=== PATIENT | female | born 1990 | race Hispanic/Latino ===

== ENCOUNTER 2017-03-15 20:39 | Observation (INO) | payer OTHER ==
[2017-03-15] MEDS ORDERED: Sodium Chloride 0.9% 1,000 ML IV STA (20:52)
--- NOTE | 2017-03-15 21:11 | ED PDOC ---
Arrival/HPI - General Time Seen by Provider: 03/15/17 20:51 - History of Present Illness Narrative History of Present Illness (Text): 03/15/17 20:35 Marly Montoya is a 26 year old female, whose past medical history includes thyroid cancer in remission, asthma, anxiety, and renal stones, presents to the emergency department complaining of lower back pain for the past 2 hours prior to arrival. Patient reports the pain began after she went to the bathroom and urinated and notes that recently she has been having more frequency to urinate to the point that she does not make it to the bathroom. Patient also states that the symptoms are similar to past medical history of kidney stones. Patient denies fall, trauma, chest pain, shortness of breath, headache, fever, chills, cough, nausea, vomiting, diarrhea, or other complaints. PMD: Dr. Aguilar Time/Duration: 1-3 hours Symptom Onset: Sudden Symptom Course: Unchanged Modifying Factors (Text): pain is worse with sitting or laying. Context: Home Associated Symptoms (Text): frequency in urination Past Medical History - Provider Review Nursing Documentation Reviewed: Yes - Cardiac Hx Hypertension: Yes - Pulmonary Hx Asthma: Yes - Renal Other/Comment: Pylonephritis - Endocrine/Metabolic Other/Comment: Papillary thyroid CA - Psychiatric Hx Substance Use: No - Surgical History Hx Thyroidectomy: Yes (04/07/2013) Family/Social History - Physician Review Nursing Documentation Reviewed: Yes Family/Social History: Unknown Family HX Smoking Status: Never Smoked Hx Alcohol Use: Yes Hx Substance Use: No Allergies/Home Meds Allergies/Adverse Reactions: Allergies amoxicillin Allergy (Verified 06/24/16 02:19) ANAPHYLAXIS spider venom Allergy (Verified 06/24/16 02:19) ANAPHYLAXIS BEE STING Allergy (Uncoded 06/24/16 02:19) ANAPHYLAXIS Home Medications: Home Meds Medication Instructions Recorded Confirmed Levothyroxine Sodium [Synthroid] 300 mcg PO DAILY 03/15/17 03/15/17 Review of Systems - Physician Review All systems were reviewed & negative as marked: Yes - Review of Systems Constitutional: absent: Fevers Respiratory: absent: SOB Cardiovascular: absent: Chest Pain Gastrointestinal: absent: Abdominal Pain, Diarrhea, Nausea, Vomiting Genitourinary Female: Frequency Musculoskeletal: Back Pain (lower back pain) Neurological: absent: Headache Physical Exam Vital Signs Temp Pulse Resp BP Pulse Ox 03/15/17 21:29 98.7 F 80 20 126/73 99 Appearance: Positive for: Well-Appearing, Non-Toxic, Comfortable Pain Distress: None Mental Status: Positive for: Alert and Oriented X 3 - Systems Exam Head: Present: Atraumatic, Normocephalic Pupils: Present: PERRL Extroacular Muscles: Present: EOMI Conjunctiva: Present: Normal Mouth: Present: Moist Mucous Membranes Neck: Present: Normal Range of Motion Respiratory/Chest: Present: Clear to Auscultation, Good Air Exchange. No: Respiratory Distress, Accessory Muscle Use Cardiovascular: Present: Regular Rate and Rhythm, Normal S1, S2. No: Murmurs Abdomen: Present: Normal Bowel Sounds. No: Tenderness, Distention, Peritoneal Signs Back: Present: CVA Tenderness (left) Upper Extremity: Present: Normal Inspection. No: Cyanosis, Edema Lower Extremity: Present: Normal Inspection. No: Edema Neurological: Present: GCS=15, CN II-XII Intact, Speech Normal Skin: Present: Warm, Dry, Normal Color. No: Rashes Psychiatric: Present: Alert, Oriented x 3, Normal Insight, Normal Concentration Medical Decision Making ED Course and Treatment: 03/15/17 Impression: 26 year old with low back pain and frequency. Differential Diagnosis included but are not limited to: renal stones vs. musculoskeletal Plan: -- CT abdomen and pelvis without contrast -- Labs -- Urinalysis -- Sodium Chloride, Toradol, Tylenol, and Zofran -- Reassess and disposition Progress Notes: 03/15/17 23:04 UTI treated with macrobid. Patient continues to have pain so will treat Lidocaine IV. Discussed case with Dr. Chavis who recommends admitting the patient for observation and he will see her in the morning. discussed case with Dr. Cueto who will place on the hospitalist service. Dr. Aguilar is patient's PMD and he admits to the hospistalist. - Lab Interpretations Lab Results: 03/15/17 21:00 03/15/17 21:00 Lab Results 03/15/17 21:10: Urine Color Yellow, Urine Appearance Sl cloudy, Urine pH 6.5, Ur Specific [place] >= 1.030, Urine Protein 100 H, Urine Glucose (UA) Negative, Urine Ketones Negative, Urine Blood Small H, Urine Nitrate Positive H, Urine Bilirubin Negative, Urine Urobilinogen 1.0 H, Ur Leukocyte Esterase Negative, Urine RBC 5 - 10, Urine WBC 10 - 15, Ur Epithelial Cells 4 - 5, Urine Bacteria Many 03/15/17 21:00: Sodium 142, Potassium 4.1, Chloride 105, Carbon Dioxide 27, Anion Gap 14, BUN 10, Creatinine 0.8, Est GFR ( Amer) > 60, Est GFR (Non- Af Amer) > 60, Random Glucose 92, Calcium 9.3, Total Bilirubin 0.7, AST 35, ALT 22, Alkaline Phosphatase 64, Total Protein 8.4 H, Albumin 4.8, Globulin 3.5, Albumin/Globulin Ratio 1.4 03/15/17 21:00: WBC 10.9, RBC 4.82, Hgb 12.3, Hct 37.8, MCV 78.4 L, MCH 25.5, MCHC 32.5, RDW 20.6 H, Plt Count 216, MPV 11.8 H, Gran % 60.6, Lymph % (Auto) 28.0, [place] % (Auto) 7.5 H, Eos % (Auto) 3.1, Baso % (Auto) 0.8, Gran # 6.57 H, Lymph # 3.0, [place] # 0.8 H, Eos # 0.3, Baso # 0.09, Neutrophils % (Manual) 48 L, Lymphocytes % (Manual) 46 H, Monocytes % (Manual) 5, Eosinophils % (Manual) 1, Platelet Evaluation Normal, Hypochromasia Slight, Anisocytosis (manual) Slight, Microcytosis (manual) Slight, Ovalocytes Slight I have reviewed the lab results: Yes Interpretation: Abnormal lab values (UTI noted) - RAD Interpretation Radiology Orders: 03/15/17 20:53 ABD & PELVIS W/O PO OR IV CONT [CT] Stat Catering Coordinator: Radiologist - Medication Orders Current Medication Orders: Discontinued Medications Acetaminophen (Tylenol 325mg Tab) 975 mg PO STAT STA Stop: 03/15/17 20:53 Last Admin: 03/15/17 21:47 Dose: 975 mg Sodium Chloride (Sodium Chloride 0.9%) 1,000 mls @ 999 mls/hr IV .Q1H1M STA Stop: 03/15/17 21:52 Last Admin: 03/15/17 21:24 Dose: 999 mls/hr Lidocaine 119 mg/ Sodium (Chloride) 105.95 mls @ 635.7 mls/hr IV STAT STA Stop: 03/15/17 22:54 Ketorolac Tromethamine (Toradol) 30 mg IVP STAT STA Stop: 03/15/17 20:53 Last Admin: 03/15/17 21:24 Dose: 30 mg Nitrofurantoin Macrocrystals (Macrobid) 100 mg PO STAT STA Stop: 03/15/17 22:07 Last Admin: 03/15/17 22:20 Dose: 100 mg Ondansetron HCl (Zofran Inj) 4 mg IVP STAT STA Stop: 03/15/17 20:54 Last Admin: 03/15/17 21:24 Dose: 4 mg Tamsulosin HCl (Flomax) 0.4 mg PO STAT STA Stop: 03/15/17 22:31 Last Admin: 03/15/17 22:50 Dose: 0.4 mg - Scribe Statement The provider has reviewed the documentation as recorded by the Scribe 03/15/2017 Alice Phoenix Provider Scribe Attestation: All medical record entries made by the Scribe were at my direction and personally dictated by me. I have reviewed the chart and agree that the record accurately reflects my personal performance of the history, physical exam, medical decision making, and the department course for this patient. I have also personally directed, reviewed, and agree with the discharge instructions and disposition. Disposition/Present on Arrival - Present on Arrival Any Indicators Present on Arrival: No History of DVT/PE: No History of Uncontrolled Diabetes: No Urinary Catheter: No History Surgical Site Infection Following: None - Disposition Have Diagnosis and Disposition been Completed?: Yes Diagnosis: Kidney stone Disposition: HOSPITALIZED Disposition Time: 23:14 Patient Plan: Observation Condition: FAIR Referrals: Chapis Peña, [Primary Care Provider] - Follow up with primary
[2017-03-15 21:25] LABS: BASO # 0.09 K/mm3 (0.0-2.0); BASO % 0.8 % (0.0-3.0); EOS # 0.3 (0.0-0.7); EOS % 3.1 % (1.5-5.0); GRAN # 6.57 (1.4-6.5); GRAN % 60.6 % (50.0-68.0); HEMOGLOBIN 12.3 gm/dL (12.0-16.0); MEAN CELL VOLUME 78.4 fL (80.0-105.0); MEAN CORPUSCULAR HEMOGLOBIN 25.5 pg (25.0-35.0); MEAN CORPUSCULAR HGB CONC 32.5 g/dl (31.0-37.0); MEAN PLATELET VOLUME 11.8 fl (7.0-11.0); MONO # 0.8 (0.1-0.6); MONO % 7.5 % (1.0-6.0); PLATELET COUNT 216 10^3/uL (120.0-450.0); RBC 4.82 10^6/uL (3.5-6.1); RED CELL DISTRIBUTION WIDTH 20.6 % (11.5-14.5); WHITE BLOOD COUNT 10.9 10^3/ul (4.5-11.0)
[2017-03-15 21:33] LABS: PH,URINE 6.5 (4.7-8.0); URINE BILIRUBIN NEGATIVE (NEGATIVE); URINE BLOOD SMALL (NEGATIVE); URINE GLUCOSE (UA) NEGATIVE (NEGATIVE); URINE LEUKOCYTE ESTERASE NEGATIVE Leu/uL (NEGATIVE); URINE NITRATE POSITIVE (NEGATIVE); URINE PROTEIN 100 mg/dL (<30 mg/dL)
[2017-03-15 21:35] LABS: URINE APPEARANCE SL CLOUDY (CLEAR); URINE COLOR YELLOW (YELLOW)
[2017-03-15 21:35] LABS: ALB/GLOB RATIO 1.4 (1.1-1.8); ALBUMIN 4.8 g/dL (3.0-4.8); ALT/SGPT 22 U/L (7-56); AST/SGOT 35 U/L (15-39); BLOOD UREA NITROGEN 10 mg/dL (7-21); CALCIUM 9.3 mg/dL (8.4-10.5); GFR AFRICAN-AMERICAN > 60; GFR NON-AFRICAN AMERICAN > 60
[2017-03-15 21:54] LABS: URINE BACTERIA MANY (NEG)
[2017-03-15 22:10] LABS: EOSINOPHIL 1 % (0.0-3.0); LYMPHOCYTE 46 % (22.0-35.0); MONOCYTE 5 % (1.0-6.0); NEUTROPHIL 48 % (50.0-70.0)
[2017-03-15 22:11] LABS: ANISOCYTOSIS SLIGHT; HYPOCHROMIA SLIGHT; MICROCYTOSIS SLIGHT; OVALOCYTES SLIGHT; PLATELET ESTIMATE NORMAL (NORMAL)
--- NOTE | 2017-03-15 22:32 | CT ---
EXAM: CT Abdomen and Pelvis Without Intravenous Contrast CLINICAL HISTORY: 26 years old, female; Pain; Abdominal pain; Flank; Left; Additional info: Left flank pain R/O kidney stones TECHNIQUE: Axial computed tomography images of the abdomen and pelvis without intravenous contrast. This CT exam was performed using one or more of the following dose reduction techniques: automated exposure control, adjustment of the mA and/or kV according to patient size, and/or use of iterative reconstruction technique. Coronal and sagittal reformatted images were created and reviewed. COMPARISON: CT - ABD PELVIS W/O PO OR IV CONT 06/24/2016 4:27:57 AM FINDINGS: Lower thorax: Small hiatal hernia. ABDOMEN: Liver: Unremarkable. Gallbladder and bile ducts: No calcified stones. No ductal dilation. Pancreas: Unremarkable. No ductal dilation. Spleen: No splenomegaly. Adrenals: No mass. Kidneys and ureters: No renal calculi. Mild pelvocaliectasis of LEFT kidney. 0.6 x 0.4 x 0.3 cm calculus within LEFT proximal ureter. Stomach and bowel: No definite mural thickening. No obstruction. Appendix: Normal caliber. No inflammation. PELVIS: Bladder: Unremarkable. No stones. Reproductive: Small ovarian follicles. ABDOMEN and PELVIS: Intraperitoneal space: No significant fluid collection. No free air. Bones/joints: No acute fracture. Soft tissues: Unremarkable. Vasculature: Circumaortic LEFT renal vein. No aneurysm. Lymph nodes: No pathologically enlarged lymph nodes. IMPRESSION: 1. LEFT proximal ureteral calculus with mild hydronephrosis. 2. Incidental/non-acute findings are described above.
[2017-03-15] MEDS ORDERED: LIDOCAINE IV STA (22:53)
[2017-03-15] MEDS ORDERED: SODIUM CHLORIDE 0.9% IV STA (22:53)
[2017-03-16] MEDS: Sodium Chloride 0.9% 1,000 ML IV SCH ×4 (01:15→21:07)
[2017-03-16] MEDS: Morphine 2 mg/ml ISec IVP PRN ×5 (01:40→21:12)
--- NOTE | 2017-03-16 02:10 | CP.PCM.HP ---
<Uri Huang - Last Filed: 03/16/17 01:57> History of Present Illness - History of Present Illness History of Present Illness: Internal Medicine H&P for Hospitalist Service CC: Severe Left flank and back pain with nausea/emesis HPI: This is a 26 yo F with PMH of papillary thyroid cancer s/p resection and rads (currently in remission), chronic synthroid supplementation, depression, anxiety, and prior nephrolithiases who presents to [facility] [place] with acute onset of severe left flank and back pain that began at 8pm the prior evening. As per patient, she has been experiencing urinary frequency x2-3 days, with frequent episodes of needing to hernandes to the bathroom to avoid accidents. She denies hematuria up to that point, but has noted some when wiping today, and after an episode tonight, abruptly developed left flank pain, increased hematuria, nausea, and emesis (non-biliary, non-bloody). She states that her symptoms are comprable to her last 2 episodes of nephrolithiasis, so she presented to the ED. Denies chest pain, shortness of breath, focal weakness, hemoptysis, hematemesis, hematuria. All remaining 12-point ROS negative. In the ED, scanning was indicative of a 6-mm stone in the left proximal ureter. Patient's Urologist (Dr. Jignesh Chavis) made aware by ED team. PMH: as above PSH: Emergency x1, Ureteral Stents x1 FHx: Mother (depression), multiple distant relative with cancer SHx: former tobacco (08/18 - 08/17 ppd x 5 years, quit 1 yr prior), denies EtOH, denies illicits/IVDA Sexually active, Not using protection, denies hx STDs PMD: Dr. Aguilar Present on Admission - Present on Admission Any Indicators Present on Admission: No History of DVT/PE: No History of Uncontrolled Diabetes: No Review of Systems - Review of Systems All systems: reviewed and no additional remarkable complaints except (as per HPI ) Past Patient History - Past Social History Smoking Status: Never Smoked - CARDIAC Hx Hypertension: Yes - PULMONARY Hx Asthma: Yes - RENAL Other/Comment: Pylonephritis - ENDOCRINE/METABOLIC Other/Comment: Papillary thyroid CA - PSYCHIATRIC Hx Substance Use: No - SURGICAL HISTORY Hx Thyroidectomy: Yes (04/07/2013) Meds Allergies/Adverse Reactions: Allergies Allergy/AdvReac Type Severity Reaction Status Date / Time amoxicillin Allergy ANAPHYLAXIS Verified 06/24/16 02:19 spider venom Allergy ANAPHYLAXIS Verified 06/24/16 02:19 BEE STING Allergy ANAPHYLAXIS Uncoded 06/24/16 02:19 Physical Exam - Constitutional Appears: Well, Non-toxic, In Acute Distress - Head Exam Head Exam: ATRAUMATIC, NORMAL INSPECTION, NORMOCEPHALIC - Eye Exam Eye Exam: EOMI, Normal appearance. absent: Conjunctival injection, Scleral icterus Pupil Exam: absent: Irregular, Unequal - ENT Exam ENT Exam: Mucous Membranes Moist - Neck Exam Neck exam: Positive for: Full Rom - Respiratory Exam Respiratory Exam: Clear to Auscultation Bilateral, NORMAL BREATHING PATTERN. absent: Accessory Muscle Use, Chest Wall Tenderness, Decreased Breath Sounds, Rales, Rhonchi, Wheezes - Cardiovascular Exam Cardiovascular Exam: REGULAR RHYTHM, RRR, +S1, +S2. absent: Bradycardia, Tachycardia, Irregular Rhythm, +S4 - GI/Abdominal Exam GI & Abdominal Exam: Normal Bowel Sounds, Soft, Tenderness (moderately tender in L anterior abdomen, acutely and significantly tedner along L flank and back) . absent: Diminished Bowel Sounds, Hyperactive Bowel Sounds, Hypoactive Bowel Sounds Additional comments: Unable to sit up straight in bed without exhibiting significant tenderness/pain (brought to tears by pain) - Extremities Exam Extremities exam: Negative for: calf tenderness, normal inspection, pedal edema - Back Exam Back exam: CVA tenderness (L) (exquisitely tender in this area, worsened with sitting up/leaning forward) - Neurological Exam Neurological exam: Alert, Oriented x3 - Psychiatric Exam Psychiatric exam: Normal Affect, Normal Mood - Skin Skin Exam: Dry, Intact, Normal Color, Warm Results - Vital Signs Recent Vital Signs: Last Vital Signs Temp 98.7 F 03/15/17 21:29 Pulse 99 H 03/15/17 23:18 Resp 18 03/15/17 23:18 BP 132/75 03/15/17 23:18 Pulse Ox 99 03/15/17 23:18 - Labs Result Diagrams: 03/15/17 21:00 03/15/17 21:00 Assessment & Plan - Assessment and Plan (Free Text) Assessment: This is a 26 yo F with PMH of papillary thyroid cancer s/p resection and rads (currently in remission), chronic synthroid supplementation, depression , anxiety, and prior nephrolithiases who presents to [facility] [place] with acute onset of severe left flank and back pain that began at 8pm the prior evening. She is being worked up for recurrent nephrolithaisis, and as per Urology, will likely need stenting again. Plan: 1) L flank pain with nausea and emesis -Nephrolithiasis vs diverticulitis vs enteritis -CT abd/pelvis notable for 6mm renal stone in left proximal ureter -Pain control not achieved with Toradol, given lidocaine IV x1 in ED, Morphine 1mg IV q4 PRN for breathrough -UTI indicated on UA, Marcobid x1 given in ED, will switch to IV Cipro and monitor -Urology (Dr. Jignesh Chavis) consulted, appreciate all recs -Nausea control PRN with Zofran -given IV Lidocaine, Zofran, and Cipro, need to monitor for QTc prolongation; EKG ordered in ED and repeat EKG in AM, f/u QTc interval -NS IVF 150cc/hr, NPO pending possible stenting 2) Thyroid ca s/p resection and remission -continue home synthroid 3) Depression/Anxiety -non-medically managed, stable -no indication to consult Psych at this time, continue follow-up with outpt therapist after discharge Dispo: Med/Surg obs, Pain control and IVF pending Urology assessment and possible ureter stenting FEN: NPO, NS 150cc/hr Access: Peripheral IV Consults: Urology Ppx: Protonix for GI, SCDs for DVT Patient seen, reviewed, and discussed with attending, Dr. Cueto - Date & Time Date: 03/16/17 Time: 02:38 Decision To Admit - Pt Status Changed To: Hospital Disposition Of: Observation - . Bed Request Type: Med/Surg <Marcelino Cueto P - Last Filed: 03/16/17 06:01> Results - Vital Signs Recent Vital Signs: Last Vital Signs Temp 98.1 F 03/16/17 01:36 Pulse 73 03/16/17 01:36 Resp 20 03/16/17 01:36 BP 140/80 03/16/17 01:36 Pulse Ox 99 03/15/17 23:18 - Labs Result Diagrams: 03/15/17 21:00 03/15/17 21:00 Labs: Laboratory Results - last 24 hr 03/16/17 04:35 Urine HCG, Qual Negative Attending/Attestation - Attestation I have personally seen and examined this patient.: Yes I have fully participated in the care of the patient.: Yes I have reviewed all pertinent clinical information: Yes Notes (Text): 03/16/17 05:57 Assessment: * Left ureteric 6mm calculus with hydronephrosis, tender left CVA, iv lidocaine 1.5mg/kg used for pain control as single dose * H/o thyroid cancer Plan * Emperic abx, flomax, ivf * Monitor QT due to being on lidocaine, zofran, cipro * NPO post midnight for possible left ureteric stent, urology aware. * See orders for detail
[2017-03-16 02:42] VITALS: BMI 32.0
[2017-03-16] MEDS: Levothyroxine 150 MCG TAB PO SCH (05:18)
[2017-03-16 09:49] LABS: BASO # 0.06 K/mm3 (0.0-2.0); BASO % 0.6 % (0.0-3.0); EOS # 0.3 (0.0-0.7); EOS % 2.9 % (1.5-5.0); GRAN # 6.79 (1.4-6.5); GRAN % 67.7 % (50.0-68.0); HEMOGLOBIN 11.6 gm/dL (12.0-16.0); LYMPH # 1.9 (1.2-3.4); LYMPH % 18.7 % (22.0-35.0); MEAN CELL VOLUME 79.1 fL (80.0-105.0); MEAN CORPUSCULAR HGB CONC 31.6 g/dl (31.0-37.0); MEAN PLATELET VOLUME 11.7 fl (7.0-11.0); MONO % 10.1 % (1.0-6.0); PLATELET COUNT 179 10^3/uL (120.0-450.0); RBC 4.64 10^6/uL (3.5-6.1)
[2017-03-16] MEDS ORDERED: Ciprofloxacin 400mg/200ml D5W 400 MG/200 ML BAG IVPB SCH (10:00)
[2017-03-16 10:04] LABS: ALB/GLOB RATIO 1.3 (1.1-1.8); ALBUMIN 3.9 g/dL (3.0-4.8); ALT/SGPT 23 U/L (7-56); AST/SGOT 24 U/L (15-39); BLOOD UREA NITROGEN 8 mg/dL (7-21); CALCIUM 8.1 mg/dL (8.4-10.5); GFR AFRICAN-AMERICAN > 60; GFR NON-AFRICAN AMERICAN > 60
--- NOTE | 2017-03-16 14:22 | CP.PCM.PCO ---
Physician Communication Note - Physician Communication Note Physician Communication Note: Plan for procedure with urology tomorrow AM
--- NOTE | 2017-03-16 15:31 | CARD ---
APPROVED REPORT EKG Measurement Heart [id number] SD 138P-3 [id number] <Conclusion> Normal sinus rhythm Normal ECG
--- NOTE | 2017-03-16 16:30 | PCM.URO ---
Urology Progress Note - Objective Lab Results Last 24 Hours: Laboratory Results - last 24 hr 03/16/17 03/16/17 03/16/17 04:35 09:00 09:00 WBC 10.0 RBC 4.64 Hgb 11.6 L Hct 36.7 MCV 79.1 L MCH 25.0 MCHC 31.6 RDW 21.0 H Plt Count 179 MPV 11.7 H Gran % 67.7 Lymph % (Auto) 18.7 L [place] % (Auto) 10.1 H Eos % (Auto) 2.9 Baso % (Auto) 0.6 Gran # 6.79 H Lymph # 1.9 [place] # 1.0 H Eos # 0.3 Baso # 0.06 Sodium 143 Potassium 4.0 Chloride 109 Carbon Dioxide 24 Anion Gap 14 BUN 8 Creatinine 0.7 Est GFR ( Amer) > 60 Est GFR (Non-Af Amer) > 60 Random Glucose 83 Calcium 8.1 L Phosphorus 2.6 Magnesium 2.0 Total Bilirubin 1.0 AST 24 ALT 23 Alkaline Phosphatase 58 Total Protein 6.8 Albumin 3.9 Globulin 2.9 Albumin/Globulin Ratio 1.3 Urine HCG, Qual Negative Intake & Output: Intake & Output 03/15/17 03/16/17 03/16/17 18:59 06:59 18:59 Intake Total 1050 0 Balance 1050 0 Weight 175 lb Intake: IV 1050 Left Antecubital 1050 Oral 0 Other: # Voids Urine, Voided 0 # Bowel Movements 0 Vital Signs: Vital Signs - 24 hr 03/15/17 03/16/17 03/16/17 23:18 01:36 08:03 Temperature 98.1 F 97.5 F L Pulse Rate 99 H 73 57 L Respiratory 18 20 20 Rate Blood Pressure 132/75 140/80 91/45 L O2 Sat by Pulse 99 98 Oximetry 03/16/17 08:05 Temperature Pulse Rate Respiratory Rate Blood Pressure 104/72 O2 Sat by Pulse Oximetry
[2017-03-17] MEDS: Morphine 2 mg/ml ISec IVP PRN ×3 (00:50→12:59)
[2017-03-17] MEDS: Sodium Chloride 0.9% 1,000 ML IV SCH (02:51)
[2017-03-17] MEDS: Levothyroxine 150 MCG TAB PO SCH (05:16)
[2017-03-17 06:30] LABS: BASO # 0.05 K/mm3 (0.0-2.0); BASO % 0.5 % (0.0-3.0); EOS # 0.2 (0.0-0.7); EOS % 1.7 % (1.5-5.0); GRAN # 8.07 (1.4-6.5); GRAN % 76.4 % (50.0-68.0); HEMOGLOBIN 11.8 gm/dL (12.0-16.0); LYMPH # 1.2 (1.2-3.4); LYMPH % 11.6 % (22.0-35.0); MEAN CELL VOLUME 79.4 fL (80.0-105.0); MEAN CORPUSCULAR HEMOGLOBIN 25.3 pg (25.0-35.0); MEAN CORPUSCULAR HGB CONC 31.8 g/dl (31.0-37.0); MEAN PLATELET VOLUME 11.8 fl (7.0-11.0); MONO % 9.8 % (1.0-6.0); PLATELET COUNT 171 10^3/uL (120.0-450.0); RBC 4.67 10^6/uL (3.5-6.1); RED CELL DISTRIBUTION WIDTH 21.4 % (11.5-14.5); WHITE BLOOD COUNT 10.6 10^3/ul (4.5-11.0)
[2017-03-17 06:33] LABS: ALB/GLOB RATIO 1.2 (1.1-1.8); ALBUMIN 3.5 g/dL (3.0-4.8); ALT/SGPT 19 U/L (7-56); AST/SGOT 22 U/L (15-39); BLOOD UREA NITROGEN 5 mg/dL (7-21); CALCIUM 8.1 mg/dL (8.4-10.5); GFR AFRICAN-AMERICAN > 60; GFR NON-AFRICAN AMERICAN > 60; MAGNESIUM 1.9 mg/dL (1.7-2.2)
[2017-03-17 06:35] LABS: INR 1.05 (0.93-1.08); PARTIAL THROMBOPLASTIN TIME 31.2 Seconds (23.7-30.8); PROTHROMBIN TIME 11.3 Seconds (9.9-11.8)
[2017-03-17] MEDS ORDERED: cefTRIAXone (Rocephin) 1 gm Inj ONE (09:53)
[2017-03-17] MEDS ORDERED: Iohexol 240 (50 ml) ONE (09:53)
[2017-03-17] MEDS ORDERED: Propofol 10 mg/ml Inj (20 ML) ONE (10:04)
[2017-03-17] MEDS ORDERED: Midazolam 2 MG/2 ML VIAL ONE (10:04)
[2017-03-17] MEDS ORDERED: Gentamicin 80 mg/2mL Inj. ONE (10:26)
[2017-03-17] MEDS ORDERED: Lactated Ringer's 1,000 ML IV SCH (11:17)
[2017-03-17] MEDS ORDERED: HYDROmorphone 0.5 mg/0.5 ml ISec IVP PRN (11:17)
--- NOTE | 2017-03-17 11:32 | RAD ---
PROCEDURE: Retrograde pyelogram HISTORY: LT nephroureteral stent placement, Lt retrogreade pyelogram COMPARISON: TECHNIQUE: Fluoroscopy was provided in the operating room. 40 seconds of fluoroscopy time. Sixteen images were submitted FINDINGS: The study shows placement of a left ureteral stent. The stent is in satisfactory position IMPRESSION: As above
--- NOTE | 2017-03-17 11:51 | CP.PCM.PN ---
Subjective - Date & Time of Evaluation Date of Evaluation: 03/17/17 Time of Evaluation: 07:10 - Subjective Subjective: Internal medicine progress note for Dr. Breana Moreno, PGY-1 Pt S & E at bedside. Pt reports continued Left flank pain overnight, some nausea, controlled with medication, chills, dry heaves with small amount of bilious emesis. Continues with some "orange" urine output. Denies fevers, SOB, CP, other complaints. Objective - Vital Signs/Intake and Output Vital Signs (last 24 hours): Temp Pulse Resp BP Pulse Ox 98.8 F 67 16 126/72 95 03/17/17 11:21 03/17/17 11:21 03/17/17 11:21 03/17/17 11:21 03/17/17 11:21 Intake and Output: 03/17/17 03/17/17 06:59 18:59 Intake Total 2340 Output Total 600 Balance 1740 - Medications Medications: Current Medications Hydromorphone HCl (Dilaudid) 0.5 mg IVP Q15M PRN PRN Reason: Pain, moderate (4-7) Stop: 03/17/17 13:17 Sodium Chloride (Sodium Chloride 0.9%) 1,000 mls @ 150 mls/hr IV .Q6H40M [facility] Last Admin: 03/17/17 02:51 Dose: 150 mls/hr Lactated Ringer's (Lactated Ringer's) 1,000 mls @ 75 mls/hr IV .[id number] MEG Stop: 03/17/17 13:18 Levothyroxine Sodium (Synthroid) [address] [facility] Last Admin: 03/17/17 05:16 Dose: Not Given Morphine Sulfate (Morphine) 1 mg IVP Q4H PRN PRN Reason: Pain, severe (8-10) Last Admin: 03/17/17 04:21 Dose: 1 mg Ondansetron HCl (Zofran Inj) 4 mg IVP Q6H PRN PRN Reason: Nausea/Vomiting Last Admin: 03/17/17 08:19 Dose: 4 mg Ondansetron HCl (Zofran Inj) 4 mg IVP ONCE PRN PRN Reason: Nausea/Vomiting Pantoprazole Sodium (Protonix Inj) [address] [facility] Last Admin: 03/16/17 09:28 Dose: 40 mg Tamsulosin HCl (Flomax) 0.4 mg PO DAILY [facility] Last Admin: 03/16/17 09:28 Dose: 0.4 mg - Labs Labs: 03/17/17 06:15 03/17/17 06:15 PT 11.3 Seconds (9.9-11.8) 03/17/17 06:15 INR 1.05 (0.93-1.08) 03/17/17 06:15 APTT 31.2 Seconds (23.7-30.8) H 03/17/17 06:15 - Constitutional Appears: Non-toxic, No Acute Distress - Head Exam Head Exam: ATRAUMATIC, NORMAL INSPECTION, NORMOCEPHALIC - Eye Exam Eye Exam: EOMI, Normal appearance - ENT Exam ENT Exam: Mucous Membranes Moist, Normal Exam - Neck Exam Neck Exam: Normal Inspection - Respiratory Exam Respiratory Exam: Clear to Ausculation Bilateral, NORMAL BREATHING PATTERN - Cardiovascular Exam Cardiovascular Exam: REGULAR RHYTHM, +S1, +S2 - GI/Abdominal Exam GI & Abdominal Exam: Soft, Tenderness (LLQ), Normal Bowel Sounds. absent: Distended, Firm, Guarding, Rigid - Extremities Exam Extremities Exam: Normal Inspection. absent: Pedal Edema - Back Exam Back Exam: CVA tenderness (L) - Neurological Exam Neurological Exam: Alert, Awake, CN II-XII Intact, Oriented x3 - Psychiatric Exam Psychiatric exam: Normal Affect, Normal Mood - Skin Skin Exam: Dry, Intact, Normal Color, Warm Assessment and Plan - Assessment and Plan (Free Text) Assessment: 26F w/nephrolithiasis
--- NOTE | 2017-03-17 14:10 | CP.PCM.DIS ---
<Moreno,Mary Ann - Last Filed: 03/17/17 14:07> Provider - Provider Date of Admission: 03/15/17 23:06 Attending physician: Claire Fink MD Primary care physician: Chapis Profile Required Consults: Urology-Partha Time Spent in preparation of Discharge (in minutes): 35 Hospital Course - Lab Results Lab Results: Most Recent Lab Values WBC 10.6 10^3/ul (4.5-11.0) 03/17/17 06:15 RBC 4.67 10^6/uL (3.5-6.1) 03/17/17 06:15 Hgb 11.8 gm/dL (12.0-16.0) L 03/17/17 06:15 Hct 37.1 % (36.0-48.0) 03/17/17 06:15 MCV 79.4 fL (80.0-105.0) L 03/17/17 06:15 MCH 25.3 pg (25.0-35.0) 03/17/17 06:15 MCHC 31.8 g/dl (31.0-37.0) 03/17/17 06:15 RDW 21.4 % (11.5-14.5) H 03/17/17 06:15 Plt Count 171 10^3/uL (120.0-450.0) 03/17/17 06:15 MPV 11.8 fl (7.0-11.0) H 03/17/17 06:15 Gran % 76.4 % (50.0-68.0) H 03/17/17 06:15 Lymph % (Auto) 11.6 % (22.0-35.0) L 03/17/17 06:15 [place] % (Auto) 9.8 % (1.0-6.0) H 03/17/17 06:15 Eos % (Auto) 1.7 % (1.5-5.0) 03/17/17 06:15 Baso % (Auto) 0.5 % (0.0-3.0) 03/17/17 06:15 Gran # 8.07 (1.4-6.5) H 03/17/17 06:15 Lymph # 1.2 (1.2-3.4) 03/17/17 06:15 [place] # 1.0 (0.1-0.6) H 03/17/17 06:15 Eos # 0.2 (0.0-0.7) 03/17/17 06:15 Baso # 0.05 K/mm3 (0.0-2.0) 03/17/17 06:15 Neutrophils % (Manual) 48 % (50.0-70.0) L 03/15/17 21:00 Lymphocytes % (Manual) 46 % (22.0-35.0) H 03/15/17 21:00 Monocytes % (Manual) 5 % (1.0-6.0) 03/15/17 21:00 Eosinophils % (Manual) 1 % (0.0-3.0) 03/15/17 21:00 Platelet Evaluation Normal (NORMAL) 03/15/17 21:00 Hypochromasia Slight 03/15/17 21:00 Anisocytosis (manual) Slight 03/15/17 21:00 Microcytosis (manual) Slight 03/15/17 21:00 Ovalocytes Slight 03/15/17 21:00 PT 11.3 Seconds (9.9-11.8) 03/17/17 06:15 INR 1.05 (0.93-1.08) 03/17/17 06:15 APTT 31.2 Seconds (23.7-30.8) H 03/17/17 06:15 Sodium 139 mmol/L (132-148) 03/17/17 06:15 Potassium 3.6 mmol/L (3.6-5.0) 03/17/17 06:15 Chloride 110 mmol/L (98-107) H 03/17/17 06:15 Carbon Dioxide 22 mmol/L (21-33) 03/17/17 06:15 Anion Gap 11 (10-20) 03/17/17 06:15 BUN 5 mg/dL (7-21) L 03/17/17 06:15 Creatinine 0.6 mg/dL (0.5-1.4) 03/17/17 06:15 Est GFR ( Amer) > 60 03/17/17 06:15 Est GFR (Non-Af Amer) > 60 03/17/17 06:15 POC Glucose (mg/dL) 89 mg/dL (65-110) 03/17/17 12:22 Random Glucose 85 mg/dL (70-110) 03/17/17 06:15 Calcium 8.1 mg/dL (8.4-10.5) L 03/17/17 06:15 Phosphorus 2.3 mg/dL (2.5-4.5) L 03/17/17 06:15 Magnesium 1.9 mg/dL (1.7-2.2) 03/17/17 06:15 Total Bilirubin 0.5 mg/dL (0.2-1.3) 03/17/17 06:15 AST 22 U/L (15-39) 03/17/17 06:15 ALT 19 U/L (7-56) 03/17/17 06:15 Alkaline Phosphatase 61 U/L (38-133) 03/17/17 06:15 Total Protein 6.5 g/dL (5.8-8.3) 03/17/17 06:15 Albumin 3.5 g/dL (3.0-4.8) 03/17/17 06:15 Globulin 3.0 gm/dL 03/17/17 06:15 Albumin/Globulin Ratio 1.2 (1.1-1.8) 03/17/17 06:15 Urine Color Yellow (YELLOW) 03/15/17 21:10 Urine Appearance Sl cloudy (CLEAR) 03/15/17 21:10 Urine pH 6.5 (4.7-8.0) 03/15/17 21:10 Ur Specific [place] >= 1.030 (1.005-1.035) 03/15/17 21:10 Urine Protein 100 mg/dL (<30 mg/dL) H 03/15/17 21:10 Urine Glucose (UA) Negative mg/dL (NEGATIVE) 03/15/17 21:10 Urine Ketones Negative mg/dL (NEGATIVE) 03/15/17 21:10 Urine Blood Small (NEGATIVE) H 03/15/17 21:10 Urine Nitrate Positive (NEGATIVE) H 03/15/17 21:10 Urine Bilirubin Negative (NEGATIVE) 03/15/17 21:10 Urine Urobilinogen 1.0 E.U./dL (<1 E.U./dL) H 03/15/17 21:10 Ur Leukocyte Esterase Negative Kat[place]/uL (NEGATIVE) 03/15/17 21:10 Urine RBC 5 - 10 /hpf (0-2) 03/15/17 21:10 Urine WBC 10 - 15 /hpf (0-6) 03/15/17 21:10 Ur Epithelial Cells 4 - 5 /hpf (0-5) 03/15/17 21:10 Urine Bacteria Many (NEG) 03/15/17 21:10 Urine HCG, Qual Negative (NEGATIVE) 03/16/17 19:40 - Hospital Course Hospital Course: 26 yo F w/PMH sig for nephrolithiasis admitted for L flank pain 2/2 nephrolithiasis. Imaging postive for 6mm renal stone in L proximal ureter. Patient placed on pain regimen, IVF, supportive measures. Urology saw/evaluated pt w/planned ureteral stent placement on hospital day 2. Patient tolerated procedure well, stable, ready for discharge home as per urology. Diagnoses: hypothyroidism, depression, anxiety, nephrolithiasis - Date & Time of H&P Date of H&P: 03/16/17 Time of H&P: 02:38 Discharge Exam - Head Exam Head Exam: ATRAUMATIC, NORMAL INSPECTION, NORMOCEPHALIC - Eye Exam Eye Exam: EOMI, Normal appearance - ENT Exam ENT Exam: Mucous Membranes Moist, Normal Exam - Neck Exam Neck exam: Full Rom, Normal Inspection - Respiratory Exam Respiratory Exam: Clear to PA & Lateral, NORMAL BREATHING PATTERN, UNREMARKABLE - Cardiovascular Exam Cardiovascular Exam: REGULAR RHYTHM, +S1, +S2 - GI/Abdominal Exam GI & Abdominal Exam: Normal Bowel Sounds, Soft, Tenderness (Minimally, LLQ). absent: Diminished Bowel Sounds, Distended - Extremities Exam Extremities exam: normal inspection - Back Exam Back exam: CVA tenderness (L) (improving) - Neurological Exam Neurological exam: Alert, CN II-XII Intact, Oriented x3 - Psychiatric Exam Psychiatric exam: Normal Affect, Normal Mood - Skin Skin Exam: Dry, Intact, Normal Color, Warm Discharge Plan - Discharge Medications Prescriptions: Ciprofloxacin HCl [Cipro] 500 mg PO BID #14 tablet Docusate Sodium [Colace] 100 mg PO BID PRN #10 capsule PRN Reason: Constipation Tamsulosin [Flomax] 0.4 mg PO DAILY #10 cap traMADol [Ultram] 50 mg PO TID #9 tab - Follow Up Plan Condition: FAIR Disposition: HOME/ ROUTINE Instructions: Kidney Stones (DC) Additional Instructions: Please follow up with Dr. Chavis in the office. You are being discharged on several medications, please take as prescribed. If you take the pain medication , please take the stool softener as well as the pain medication can cause constipation. Drink lots of water. If you have a recurrence of symptoms, please return to hospital. Referrals: [facility] Profile Req, [Non-Staff] - <Claire Fink - Last Filed: 03/17/17 15:58> Provider - Provider Date of Admission: 03/15/17 23:06 Attending physician: Claire Fink MD Hospital Course - Lab Results Lab Results: Most Recent Lab Values WBC 10.6 10^3/ul (4.5-11.0) 03/17/17 06:15 RBC 4.67 10^6/uL (3.5-6.1) 03/17/17 06:15 Hgb 11.8 gm/dL (12.0-16.0) L 03/17/17 06:15 Hct 37.1 % (36.0-48.0) 03/17/17 06:15 MCV 79.4 fL (80.0-105.0) L 03/17/17 06:15 MCH 25.3 pg (25.0-35.0) 03/17/17 06:15 MCHC 31.8 g/dl (31.0-37.0) 03/17/17 06:15 RDW 21.4 % (11.5-14.5) H 03/17/17 06:15 Plt Count 171 10^3/uL (120.0-450.0) 03/17/17 06:15 MPV 11.8 fl (7.0-11.0) H 03/17/17 06:15 Gran % 76.4 % (50.0-68.0) H 03/17/17 06:15 Lymph % (Auto) 11.6 % (22.0-35.0) L 03/17/17 06:15 [place] % (Auto) 9.8 % (1.0-6.0) H 03/17/17 06:15 Eos % (Auto) 1.7 % (1.5-5.0) 03/17/17 06:15 Baso % (Auto) 0.5 % (0.0-3.0) 03/17/17 06:15 Gran # 8.07 (1.4-6.5) H 03/17/17 06:15 Lymph # 1.2 (1.2-3.4) 03/17/17 06:15 [place] # 1.0 (0.1-0.6) H 03/17/17 06:15 Eos # 0.2 (0.0-0.7) 03/17/17 06:15 Baso # 0.05 K/mm3 (0.0-2.0) 03/17/17 06:15 Neutrophils % (Manual) 48 % (50.0-70.0) L 03/15/17 21:00 Lymphocytes % (Manual) 46 % (22.0-35.0) H 03/15/17 21:00 Monocytes % (Manual) 5 % (1.0-6.0) 03/15/17 21:00 Eosinophils % (Manual) 1 % (0.0-3.0) 03/15/17 21:00 Platelet Evaluation Normal (NORMAL) 03/15/17 21:00 Hypochromasia Slight 03/15/17 21:00 Anisocytosis (manual) Slight 03/15/17 21:00 Microcytosis (manual) Slight 03/15/17 21:00 Ovalocytes Slight 03/15/17 21:00 PT 11.3 Seconds (9.9-11.8) 03/17/17 06:15 INR 1.05 (0.93-1.08) 03/17/17 06:15 APTT 31.2 Seconds (23.7-30.8) H 03/17/17 06:15 Sodium 139 mmol/L (132-148) 03/17/17 06:15 Potassium 3.6 mmol/L (3.6-5.0) 03/17/17 06:15 Chloride 110 mmol/L (98-107) H 03/17/17 06:15 Carbon Dioxide 22 mmol/L (21-33) 03/17/17 06:15 Anion Gap 11 (10-20) 03/17/17 06:15 BUN 5 mg/dL (7-21) L 03/17/17 06:15 Creatinine 0.6 mg/dL (0.5-1.4) 03/17/17 06:15 Est GFR ( Amer) > 60 03/17/17 06:15 Est GFR (Non-Af Amer) > 60 03/17/17 06:15 POC Glucose (mg/dL) 89 mg/dL (65-110) 03/17/17 12:22 Random Glucose 85 mg/dL (70-110) 03/17/17 06:15 Calcium 8.1 mg/dL (8.4-10.5) L 03/17/17 06:15 Phosphorus 2.3 mg/dL (2.5-4.5) L 03/17/17 06:15 Magnesium 1.9 mg/dL (1.7-2.2) 03/17/17 06:15 Total Bilirubin 0.5 mg/dL (0.2-1.3) 03/17/17 06:15 AST 22 U/L (15-39) 03/17/17 06:15 ALT 19 U/L (7-56) 03/17/17 06:15 Alkaline Phosphatase 61 U/L (38-133) 03/17/17 06:15 Total Protein 6.5 g/dL (5.8-8.3) 03/17/17 06:15 Albumin 3.5 g/dL (3.0-4.8) 03/17/17 06:15 Globulin 3.0 gm/dL 03/17/17 06:15 Albumin/Globulin Ratio 1.2 (1.1-1.8) 03/17/17 06:15 Urine Color Yellow (YELLOW) 03/15/17 21:10 Urine Appearance Sl cloudy (CLEAR) 03/15/17 21:10 Urine pH 6.5 (4.7-8.0) 03/15/17 21:10 Ur Specific [place] >= 1.030 (1.005-1.035) 03/15/17 21:10 Urine Protein 100 mg/dL (<30 mg/dL) H 03/15/17 21:10 Urine Glucose (UA) Negative mg/dL (NEGATIVE) 03/15/17 21:10 Urine Ketones Negative mg/dL (NEGATIVE) 03/15/17 21:10 Urine Blood Small (NEGATIVE) H 03/15/17 21:10 Urine Nitrate Positive (NEGATIVE) H 03/15/17 21:10 Urine Bilirubin Negative (NEGATIVE) 03/15/17 21:10 Urine Urobilinogen 1.0 E.U./dL (<1 E.U./dL) H 03/15/17 21:10 Ur Leukocyte Esterase Negative [place]/uL (NEGATIVE) 03/15/17 21:10 Urine RBC 5 - 10 /hpf (0-2) 03/15/17 21:10 Urine WBC 10 - 15 /hpf (0-6) 03/15/17 21:10 Ur Epithelial Cells 4 - 5 /hpf (0-5) 03/15/17 21:10 Urine Bacteria Many (NEG) 03/15/17 21:10 Urine HCG, Qual Negative (NEGATIVE) 03/16/17 19:40 Attending/Attestation - Attestation I have personally seen and examined this patient.: Yes I have fully participated in the care of the patient.: Yes I have reviewed all pertinent clinical information, including history, physical exam and plan: Yes Notes (Text): 03/17/17 15:57 attending note; Patient is a 26-year-old female admitted with left ureteral stone and hydronephrosis. Status post stent placement by Dr. Chavis today. Patient will be discharged home today with close follow-up. Diagnosis; Left ureteral stone Status post stent placement Hypothyroidism
[2017-03-17 17:46] VITALS: BP 115/75; PULSE 80; RESP 20; TEMP 98.7; O2SAT 97
[2017-03-17] MEDS ORDERED: Oxycodone/Acetaminophen 5/325 mg Tab PO PRN (18:10)
--- NOTE | 2017-04-02 09:25 | PN ---
DATE: 03/17/2017 The patient is in postop period, status post stent insertion. She is feeling somewhat better. She has been experiencing some stent discomfort, a little blood in urine noted, but otherwise feeling better. Vital signs within normal limits. The diagnosis is renal colic, hematuria, hydronephrosis. The plan is as follows; the patient is status post stent insertion. Further plans will follow. The patient will be treated after this as an outpatient in [place] at the place called [facility]. Armando Chavis MD
--- NOTE | 2017-04-02 13:45 | CON ---
UROLOGY CONSULTATION REASON FOR CONSULTATION: Severe renal colic. HISTORY OF PRESENT ILLNESS: This is a very pleasant young lady who I know quite well. I previously had seen her when she had an emergency treatment for her kidney stone. At that time, we did cysto stent. We did multiple procedures for that. Since then, she has been in her usual state of health, so she presents now with severe renal colic with a stone, see the plans listed below. She also has a significant medical and surgical history. She had thyroid cancer. She is currently . She has no other real major history medically. PROJECT/PRODUCTION MANAGER IMAGING history is unremarkable. A child. SOCIAL HISTORY: Her mother assists her. No other significant social issue. MEDICATIONS: See chart. ALLERGIES: SHE IS ALLERGIC TO PENICILLIN AND LATEX. PHYSICAL EXAMINATION GENERAL: A well-nourished female. Currently, she is reasonably comfortable. No real CVA tenderness. ABDOMEN: Overall soft. No rebound, no guarding. PELVIC/RECTAL/CYSTO: There are no pelvic, rectal or cysto masses. LABORATORY DATA: CT scan noted. DIAGNOSES: Hydronephrosis, urolithiasis, hematuria, and severe flank pain. PLAN: I discussed the options with the patient, the possibility to go out to the [facility], the possibility to treat the patient with shock lithotripsy. The patient has ongoing severe pain. We are going to bring her to the operating room as quickly and rapidly as the operating room's availability, and then we will discuss further plans. We will initially cysto stent it, it is a fairly high up stone and proximal. We discussed risks, benefits, alternatives, further plans, and how we will follow, but the next step will be a cysto stent insertion. And then actually we are going to plan to bring her out to the [facility]. I did discuss the further plans. Armando Chavis MD
--- NOTE | 2017-04-02 16:05 | OP ---
UROLOGY OPERATIVE REPORT PROCEDURE DATE: 03/17/2017 PREOPERATIVE DIAGNOSES: Urolithiasis, flank pain, severe renal colic, hydronephrosis, and hematuria. POSTOPERATIVE DIAGNOSES: Urolithiasis, flank pain, severe renal colic, hydronephrosis, and hematuria. PROCEDURE: Cystoscopy, retrograde pyelogram, and insertion of a double-J stent. COMPLICATIONS: There were no complications. ESTIMATED BLOOD LOSS: Less than 10 mL. At the termination of the procedure, the patient has a double-J in good location. INDICATIONS: See the history and physical and consultations. A very pleasant lady who I treated about quite some time back where she presented with stones and we treated. She does have significant medical problems. She has a history of thyroid cancer for which she was treated and is currently KATIE. Her TRUCK CATERER history is that she has a baby about a year ago or so or more. She has periods on a regular basis. The patient has no history of diabetes. Has history of RI, CVA, and asthma. We have discussed options with the patient given her history, her pain, and her overall medical condition. We discussed the options with the patient, she with her mother. After discussing all the options, risks, benefits, and alternatives, she is here for the above-listed procedure. The urology operative findings are as follows: The patient's ureteral orifice was within normal limits. The patient's urine is otherwise, no abnormality appreciated and the double-J stent was inserted without difficulty. DESCRIPTION OF PROCEDURE: After obtaining informed consent, the patient was placed on the table. Routine monitor was placed. Time-out was called to confirm the patient's positioning. I explained to the patient, the plan for today was just a stent insertion, not removing the stone. I explain that she will need further followup. Cystoscope via the urethra, ureteral orifice identified. Retrograde pyelogram was performed. Contrast injected. No extravasation noted. A wire was passed up to the kidney, a double-J stent is deployed. The patient tolerated the procedure well without complications. The bladder normal external genitalia. No pelvic or rectal masses are detected. Overall, the patient tolerated the procedure well without complications. Armando Chavis MD [facility] # [id number]
== END 2017-03-17 20:33 | disposition home or self-care (01) ==
LOC: ED 20:39 → ERH 23:06 → 3RNO 03-16 00:34
PROVIDERS: ADMIT Internal Medicine; ATTEND Internal Medicine
DX: N13.2 Hydronephrosis with renal and ureteral calculous obstruction (principal); N20.2 Calculus of kidney with calculus of ureter; E03.9 Hypothyroidism, unspecified; F41.9 Anxiety disorder, unspecified; I10 Essential (primary) hypertension; J45.909 Unspecified asthma, uncomplicated; Z81.8 Family history of other mental and behavioral disorders; Z85.850 Personal history of malignant neoplasm of thyroid; Z87.891 Personal history of nicotine dependence; F32.89 Other specified depressive episodes; Z88.0 Allergy status to penicillin; Z87.892 Personal history of anaphylaxis; Z91.030 Bee allergy status; Z91.038 Other insect allergy status; B96.1 Klebsiella pneumoniae [K. pneumoniae] as the cause of diseases classified elsewhere
CPT/HCPCS: 36415; 52005; 52332; 74176; 74420; 80053; 81001; 82948; 83735; 84100; 84703; 85025; 85610; 85730; 87086; 87181; 93005; 96361; 96374; 96375; 96376; 99284; C1758; C1769; C2625; C9113; G0378; J0744; J1580; J1885; J2001; J2250; J2270; J2405; J2704; J3010; J7040; J7120; Q9966

== ENCOUNTER 2017-03-25 23:57 | Observation (INO) | payer OTHER ==
[2017-03-25 23:58] VITALS: BMI 32.0
[2017-03-26] MEDS ORDERED: Sodium Chloride 0.9% 1,000 ML IV STA (00:25)
--- NOTE | 2017-03-26 00:44 | ED PDOC ---
Arrival/HPI - General Chief Complaint: Female Genitourinary Time Seen by Provider: 03/26/17 00:23 Historian: Patient - History of Present Illness Narrative History of Present Illness (Text): 03/26/17 00:41 Marly Montoya is a 26 year old female who presents to the emergency department complaining of 1 day duration of left flank pain, hematuria and passing stones. States she recently had a left ureteral stent removed. Denies any fever, chills , headache, nausea, vomiting, diarrhea or any other complaints. Time/Duration: Other (1 day ) Symptom Course: Unchanged Activities at Onset: Light Context: Home Past Medical History - Provider Review Nursing Documentation Reviewed: Yes - Cardiac Hx Hypertension: Yes - Pulmonary Hx Asthma: Yes - Neurological Hx Neurological Disorder: No - HEENT Hx HEENT Disorder: No - Renal Hx Renal Disorder: No Other/Comment: Pylonephritis - Endocrine/Metabolic Other/Comment: Papillary thyroid CA - Hematological/Oncological Hx Blood Disorders: No Hx Blood Transfusions: No Hx Blood Transfusion Reaction: No - Integumentary Hx Dermatological Disorder: No - Musculoskeletal/Rheumatological Hx Musculoskeletal Disorders: No Hx Falls: No - Gastrointestinal Hx Gastrointestinal Disorders: No - Genitourinary/Gynecological Hx Genitourinary Disorders: No - Psychiatric Hx Anxiety: Yes Hx Depression: Yes Hx Substance Use: No - Surgical History Hx Section: Yes (2015) Hx Thyroidectomy: Yes (2012) Other/Comment: stent removal left kidney 1 week ago - Anesthesia Hx Anesthesia Reactions: No Hx Malignant Hyperthermia: No Family/Social History - Physician Review Nursing Documentation Reviewed: Yes Family/Social History: No Known Family HX Smoking Status: Never Smoked Hx Alcohol Use: Yes Frequency of alcohol use: Socially Hx Substance Use: No Allergies/Home Meds Allergies/Adverse Reactions: Allergies amoxicillin Allergy (Verified 03/26/17 00:12) ANAPHYLAXIS spider venom Allergy (Verified 03/26/17 00:12) ANAPHYLAXIS BEE STING Allergy (Uncoded 03/26/17 00:12) ANAPHYLAXIS Home Medications: Home Meds Medication Instructions Recorded Confirmed Levothyroxine Sodium [Synthroid] 300 mcg PO DAILY 03/15/17 03/26/17 Physical Exam - Physical Exam Narrative Physical Exam (Text): Constitutional: Normal. absent: Fatigue, Weight Change, Fevers Eyes: Normal ENT: Normal Respiratory: Normal absent: SOB, Cough, Sputum Cardiovascular: Normal absent: Chest pain, Palpitations, Syncope Gastrointestinal:Normal absent: Abdominal pain, Diarrhea, Nausea, Vomiting Genitourinary: Present: Hematuria absent:Frequency, Musculoskeletal:left flank pain absent: Arthralgias, Neck Pain Skin: Normal Neurological: Normal absent: Focal Weakness Endocrine: Normal Hemo/Lymphatic: Normal Psychiatric: Normal - Physical exam Patient appears age appropriate, speaking full sentences without difficulty. - Systems Exam Head: Present: Atraumatic, Normocephalic Pupils: Present: PERRL Extraocular Muscles: Present: EOMI Conjunctiva: Present: Normal Mouth: Present: Moist Mucous Membranes Neck: Present: Normal Range of Motion. No: MIDLINE TENDERNESS, Paraspinal Tenderness Respiratory/Chest: Present: Clear to Auscultation, Good Air Exchange. No: Respiratory Distress, Accessory Muscle Use, Tachypnic Cardiovascular: Present: Regular Rate and Rhythm, Normal S1, S2, Peripheral Pulses Present. No: Murmurs Abdomen: Present: Normal Bowel Sounds, No: Tenderness, Peritoneal Signs, Rebound, Guarding, Distention Back: Present: Mild left CVA tenderness No: Midline Tenderness, Paraspinal Tenderness Upper Extremity: Present: Normal Inspection. No: Cyanosis, Edema Lower Extremity: Present: Normal Inspection. No: Edema Neurological: Present: GCS=15, Speech Normal, cranial nerves II through XII fully intact with no cerebellar abnormality, neuro-sensory fully intact. No focal neurological deficits. Skin: Present: Warm, Dry, Normal Color. No: Rashes Lymphatic: Present: OX3, NI, NC Psychiatric: Present: Alert, Oriented x 3, Normal Insight, Normal Concentration Vital Signs Reviewed: Yes Vital Signs Temp Pulse Resp BP Pulse Ox 03/26/17 00:21 98.5 F 88 20 112/78 98 Temperature: Afebrile Blood Pressure: Normal Pulse: Regular Respiratory Rate: Normal Appearance: Positive for: Well-Appearing, Non-Toxic, Comfortable Pain Distress: None Mental Status: Positive for: Alert and Oriented X 3 Medical Decision Making ED Course and Treatment: 03/26/17 00:45 Impression: A 26 year old female who presents to the ed complaining of left flank pain, hematuria and passing stones. Recently had a ureteral stent removed. On exam, patient has mild left flank tenderness. Differential Diagnosis included but are not limited to: renal colic vs pyelonephritis. Plan: -- CT abdomen pelvis -- Labs -- Toradol -- IV fluids -- Urine culture -- Urinalysis -- Reassess and disposition Progress Notes: 03/26/17 02:04 Leukocytosis noted. Evidence of infection noted in Urinalysis, antibiotic ordered. 03/26/17 03:11 CT abdomen pelvis reviewed: Dictated and Authenticated by: Jarret Wakefield MD IMPRESSION: There is mild left hydronephrosis. There is a 3 x 4 mm stone in the proximal left ureter. There is additional nonobstructing left nephrolithiasis. 03/26/17 03:36 pt was previously admitted to the hospitalist service dw Dr. Cueto, accepted admission to the hospitalist service pt aware of and agrees with plan - Lab Interpretations Lab Results: 03/26/17 00:45 03/26/17 00:45 Lab Results 03/26/17 00:45: Sodium 139, Potassium 4.1, Chloride 103, Carbon Dioxide 26, Anion Gap 14, BUN 20, Creatinine 0.8, Est GFR ( Amer) > 60, Est GFR (Non- Af Amer) > 60, Random Glucose 74, Calcium 9.3, Total Bilirubin 0.5, AST 73 H, ALT 22, Alkaline Phosphatase 61, Total Protein 7.1, Albumin 4.1, Globulin 3.0, Albumin/Globulin Ratio 1.4 03/26/17 00:45: Urine Color Yellow, Urine Appearance Cloudy, Urine pH 5.5, Ur Specific [place] >= 1.030, Urine Protein 100 H, Urine Glucose (UA) Negative, Urine Ketones Negative, Urine Blood Large H, Urine Nitrate Negative, Urine Bilirubin Negative, Urine Urobilinogen 0.2, Ur Leukocyte Esterase Moderate H, Urine RBC 2 - 5, Urine WBC Tntc, Ur Epithelial Cells 1 - 3, Urine Bacteria Many 03/26/17 00:45: WBC 17.6 H D, RBC 4.38, Hgb 11.2 L, Hct 35.2 L, MCV 80.4, MCH 25.6, MCHC 31.8, RDW 22.4 H, Plt Count 229, MPV 10.7, Gran % 71.5 H, Lymph % ( Auto) 18.5 L, [place] % (Auto) 7.4 H, Eos % (Auto) 2.2, Baso % (Auto) 0.4, Gran # 12.58 H, Lymph # 3.3, [place] # 1.3 H, Eos # 0.4, Baso # 0.07 I have reviewed the lab results: Yes - RAD Interpretation Narrative RAD Interpretations (Text): EXAM: CT Abdomen and Pelvis Without Intravenous Contrast Dictated and Authenticated by: Jarret Wakefield MD FINDINGS: Lower thorax: No acute findings. ABDOMEN: Liver: No acute findings. Gallbladder and bile ducts: No acute findings. No calcified stones. No ductal dilation. Pancreas: No acute findings. No ductal dilation. Spleen: No acute findings. No splenomegaly. Adrenals: No acute findings. No mass. Kidneys and ureters: There is mild left hydronephrosis. There is a 3 x 4 mm stone in the proximal left ureter. There is additional nonobstructing left nephrolithiasis. Stomach and bowel: No acute findings. No obstruction. No mucosal thickening. Appendix: No findings to suggest acute appendicitis. PELVIS: Bladder: No acute findings. No stones. Reproductive: No acute findings. ABDOMEN and PELVIS: Intraperitoneal space: No acute findings. No free air. No significant fluid collection. Bones/joints: No acute fracture. No dislocation. Soft tissues: No acute findings. Vasculature: No acute findings. No abdominal aortic aneurysm. Lymph nodes: No acute findings. No enlarged lymph nodes. IMPRESSION: There is mild left hydronephrosis. There is a 3 x 4 mm stone in the proximal left ureter. There is additional nonobstructing left nephrolithiasis. Radiology Orders: 03/26/17 00:25 ABD & PELVIS W/O PO OR IV CONT [CT] Stat Stacker Tender: Radiologist - Medication Orders Current Medication Orders: Discontinued Medications Sodium Chloride (Sodium Chloride 0.9%) 1,000 mls @ 1,000 mls/hr IV .Q1H STA Stop: 03/26/17 01:24 Last Admin: 03/26/17 00:51 Dose: 1,000 mls/hr Ceftriaxone Sodium (Rocephin 1 Gram Ivpb) 1 gm in 100 mls @ 200 mls/hr IV STAT STA PRN Reason: Protocol Stop: 03/26/17 02:30 Last Admin: 03/26/17 02:57 Dose: 200 mls/hr Ketorolac Tromethamine (Toradol) 30 mg IVP STAT STA Stop: 03/26/17 00:26 Last Admin: 03/26/17 00:47 Dose: 30 mg - Scribe Statement The provider has reviewed the documentation as recorded by the Danielle Weiss Provider Attestation: All medical record entries made by the Luibe were at my direction and personally dictated by me. I have reviewed the chart and agree that the record accurately reflects my personal performance of the history, physical exam, medical decision making, and the department course for this patient. I have also personally directed, reviewed, and agree with the discharge instructions and disposition. Disposition/Present on Arrival - Present on Arrival Any Indicators Present on Arrival: No History of DVT/PE: No History of Uncontrolled Diabetes: No Urinary Catheter: No History of Decub. Ulcer: No History Surgical Site Infection Following: None - Disposition Have Diagnosis and Disposition been Completed?: Yes Diagnosis: Kidney stone, UTI (urinary tract infection) Disposition: HOSPITALIZED Disposition Time: 03:37 Patient Plan: Observation Condition: STABLE Referrals: aCndido Thornton MD [Primary Care Provider] - Follow up with primary Forms: [employer] ([place])
[2017-03-26 01:00] LABS: BASO # 0.07 K/mm3 (0.0-2.0); BASO % 0.4 % (0.0-3.0); EOS # 0.4 (0.0-0.7); EOS % 2.2 % (1.5-5.0); GRAN # 12.58 (1.4-6.5); GRAN % 71.5 % (50.0-68.0); HEMOGLOBIN 11.2 g/dL (12.0-16.0); LYMPH # 3.3 (1.2-3.4); LYMPH % 18.5 % (22.0-35.0); MEAN CELL VOLUME 80.4 fl (80.0-105.0); MEAN CORPUSCULAR HEMOGLOBIN 25.6 pg (25.0-35.0); MEAN CORPUSCULAR HGB CONC 31.8 g/dl (31.0-37.0); MEAN PLATELET VOLUME 10.7 fl (7.0-11.0); MONO # 1.3 (0.1-0.6); MONO % 7.4 % (1.0-6.0); PH,URINE 5.5 (4.7-8.0); PLATELET COUNT 229 10^3/uL (120.0-450.0); RBC 4.38 10^6/uL (3.5-6.1); URINE BILIRUBIN NEGATIVE (NEGATIVE); URINE BLOOD LARGE (NEGATIVE); URINE GLUCOSE (UA) NEGATIVE (NEGATIVE); URINE LEUKOCYTE ESTERASE MODERATE Leu/uL (NEGATIVE); URINE NITRATE NEGATIVE (NEGATIVE); URINE PROTEIN 100 mg/dL (<30 mg/dL); URINE UROBILINOGEN 0.2 E.U./dL (<1 E.U./dL); WHITE BLOOD COUNT 17.6 10^3/ul (4.5-11.0)
[2017-03-26 01:10] LABS: ALB/GLOB RATIO 1.4 (1.1-1.8); ALBUMIN 4.1 g/dL (3.0-4.8); ALT/SGPT 22 U/L (7-56); AST/SGOT 73 U/L (15-39); BLOOD UREA NITROGEN 20 mg/dL (7-21); CALCIUM 9.3 mg/dL (8.4-10.5); GFR AFRICAN-AMERICAN > 60; GFR NON-AFRICAN AMERICAN > 60; URINE APPEARANCE CLOUDY (CLEAR); URINE COLOR YELLOW (YELLOW)
[2017-03-26 01:15] LABS: URINE BACTERIA MANY (NEG); URINE WBC TNTC /hpf (0-6)
[2017-03-26 01:22] LABS: RED CELL DISTRIBUTION WIDTH 22.4 % (11.5-14.5)
[2017-03-26] MEDS ORDERED: cefTRIAXone 1 gm 1 GM/100 ML BAG IV STA (02:01)
--- NOTE | 2017-03-26 05:03 | CP.PCM.HP ---
<Uri Huang - Last Filed: 03/26/17 04:31> History of Present Illness - History of Present Illness History of Present Illness: Internal Medicine H&P for Hospitalist Service CC: Recurrent severe Left flank/back pain and right flank pain, with nausea/ emesis and hematuria HPI: This is a 26 yo F with PMH of papillary thyroid cancer s/p resection and rads (currently in remission), chronic synthroid supplementation, depression, anxiety, and prior nephrolithiases s/p recent stenting and stent removal who presents to [facility] [place] with acute onset of severe left flank and back pain that began at 9pm prior to admission. As per patient, she had her stent removed approximately 3 days ago, and has been continuing on PO antibiotics as per her Urologist. She experienced acutely increased urinary frequency yesterday, but attributed it to being on antibiotics and did not think much of it. However, her last episode of urination prior to presentation became acutely painful, L abdomen/flank > R, and patient reported passing clots in her urine. She states that her symptoms are comparable to her last episodes of nephrolithiasis. Denies chest pain, shortness of breath, focal weakness, hemoptysis, hematemesis. All remaining 12-point ROS negative. In the ED, scanning was indicative of a 4x3mm stone in the left proximal ureter. PMH: as above PSH: Emergency x1, Ureteral Stents x1 (removed 2-3 days prior to this admission) FHx: Mother (depression), multiple distant relative with cancer SHx: former tobacco (08/18 - 08/17 ppd x 5 years, quit 1 yr prior), denies EtOH, denies illicits/IVDA Sexually active, Not using protection, denies hx STDs PMD: Dr. Aguilar Present on Admission - Present on Admission Any Indicators Present on Admission: No History of DVT/PE: No History of Uncontrolled Diabetes: No Urinary Catheter: No Review of Systems - Review of Systems All systems: reviewed and no additional remarkable complaints except (as in HPI) Past Patient History - Past Social History Smoking Status: Never Smoked - CARDIAC Hx Hypertension: Yes - PULMONARY Hx Asthma: Yes - NEUROLOGICAL Hx Neurological Disorder: No - HEENT Hx HEENT Problems: No - RENAL Hx Chronic Kidney Disease: No Other/Comment: Pylonephritis - ENDOCRINE/METABOLIC Other/Comment: Papillary thyroid CA - HEMATOLOGICAL/ONCOLOGICAL Hx Blood Disorders: No Hx Blood Transfusions: No Hx Blood Transfusion Reaction: No - INTEGUMENTARY Hx Dermatological Problems: No - MUSCULOSKELETAL/RHEUMATOLOGICAL Hx Musculoskeletal Disorders: No Hx Falls: No - GASTROINTESTINAL Hx Gastrointestinal Disorders: No - GENITOURINARY/GYNECOLOGICAL Hx Genitourinary Disorders: No - PSYCHIATRIC Hx Anxiety: Yes Hx Depression: Yes Hx Substance Use: No - SURGICAL HISTORY Hx Section: Yes (2015) Hx Thyroidectomy: Yes (2012) Other/Comment: stent removal left kidney 1 week ago - ANESTHESIA Hx Anesthesia Reactions: No Hx Malignant Hyperthermia: No Meds Allergies/Adverse Reactions: Allergies Allergy/AdvReac Type Severity Reaction Status Date / Time amoxicillin Allergy ANAPHYLAXIS Verified 03/26/17 00:12 spider venom Allergy ANAPHYLAXIS Verified 03/26/17 00:12 BEE STING Allergy ANAPHYLAXIS Uncoded 03/26/17 00:12 Physical Exam - Additional Findings Additional findings: - Constitutional Appears: Well, Non-toxic, In Acute Distress when palpating abdomen/flank/back, otherwise resting comfortably in bed - Head Exam Head Exam: ATRAUMATIC, NORMAL INSPECTION, NORMOCEPHALIC - Eye Exam Eye Exam: EOMI, Normal appearance. absent: Conjunctival injection, Scleral icterus Pupil Exam: absent: Irregular, Unequal - ENT Exam ENT Exam: Mucous Membranes Moist - Neck Exam Neck exam: Positive for: Full Rom - Respiratory Exam Respiratory Exam: Clear to Auscultation Bilateral, NORMAL BREATHING PATTERN. absent: Accessory Muscle Use, Chest Wall Tenderness, Decreased Breath Sounds, Rales, Rhonchi, Wheezes - Cardiovascular Exam Cardiovascular Exam: REGULAR RHYTHM, RRR, +S1, +S2. absent: Bradycardia, Tachycardia, Irregular Rhythm, +S4 - GI/Abdominal Exam GI & Abdominal Exam: Normal Bowel Sounds, Soft, Tenderness (severely tender along LLQ and L flank into left back, moderately tender in R anterior abdomen and flank). absent: Diminished Bowel Sounds, Hyperactive Bowel Sounds, Hypoactive Bowel Sounds - Extremities Exam Extremities exam: Negative for: calf tenderness, normal inspection, pedal edema - Back Exam Back exam: Bilateral CVA tenderness L>R (exquisitely tender in this area, worsened with any palpation) - Neurological Exam Neurological exam: Alert, Oriented x3 - Psychiatric Exam Psychiatric exam: Normal Affect, Normal Mood - Skin Skin Exam: Dry, Intact, Normal Color, Warm Results - Vital Signs Recent Vital Signs: Last Vital Signs Temp 98.0 F 03/26/17 03:30 Pulse 78 03/26/17 03:30 Resp 16 03/26/17 03:30 BP 112/68 03/26/17 03:30 Pulse Ox 99 03/26/17 03:30 - Labs Result Diagrams: 03/26/17 00:45 03/26/17 00:45 Assessment & Plan - Assessment and Plan (Free Text) Assessment: This is a 26 yo F with PMH of papillary thyroid cancer s/p resection and rads (currently in remission), chronic synthroid supplementation, depression , anxiety, and prior nephrolithiases who presents to [facility] [place] with acute onset of severe left flank and back pain that began at 9pm the prior evening. Found to have a new stone of CT from ED. Plan: 1) L flank pain with nausea and emesis -Nephrolithiasis vs pyelonephritis vs diverticulitis vs enteritis -CT abd/pelvis notable for 4x3mm renal stone in left proximal ureter, mild L hydronephrosis -Pain control not achieved with Toradol, given lidocaine IV x1 in ED, Morphine 1mg IV q4 PRN for breathrough -UA supicious for, Marcobid x1 given in ED, will switch to IV Cipro and monitor -Urology (Dr. Jignesh Chavis) consulted, appreciate all recs -Nausea control PRN with Zofran -given IV Lidocaine, Zofran, and Cipro, need to monitor for QTc prolongation; EKG ordered in ED and repeat EKG in AM, f/u QTc interval -NS IVF 150cc/hr, NPO pending possible stenting 2) Thyroid ca s/p resection and remission -continue home synthroid 3) Depression/Anxiety -non-medically managed, stable -no indication to consult Psych at this time, continue follow-up with outpt therapist after discharge Dispo: Med/Surg obs, Pain control and IVF pending Urology assessment, Continue Abx regimen FEN: NPO, NS 150cc/hr Access: Peripheral IV Consults: Urology Ppx: Protonix for GI, SCDs for DVT Patient seen, reviewed, and discussed with attending, Dr. Cueto Decision To Admit - Pt Status Changed To: Hospital Disposition Of: Observation - . Bed Request Type: Med/Surg <Marcelino Cueto P - Last Filed: 03/26/17 06:57> Results - Vital Signs Recent Vital Signs: Last Vital Signs Temp 97.8 F 03/26/17 05:49 Pulse 86 03/26/17 05:49 Resp 20 03/26/17 05:49 BP 134/85 03/26/17 05:49 Pulse Ox 99 03/26/17 03:30 - Labs Result Diagrams: 03/26/17 00:45 03/26/17 00:45 Attending/Attestation - Attestation I have personally seen and examined this patient.: Yes I have fully participated in the care of the patient.: Yes I have reviewed all pertinent clinical information: Yes Notes (Text): Recurrent left ureteric calculus, h/o ureteric stent on 03/17, then lithotripisy on 03/22, and stent removal on 03/24 with left flank pain since last night 9 pm with blood in the urine CT abd/pelvis, left 4x3 mm ureteric caluculus with hydro , wbc 17K, pmh as above of aggressive ivf, flomax, continue cipro, urology consult, strain urine, pain control.
[2017-03-26] MEDS: Sodium Chloride 0.9% 1,000 ML IV SCH ×2 (05:27→13:58)
[2017-03-26] MEDS: Morphine 2 mg/ml ISec IVP PRN ×5 (05:35→23:22)
[2017-03-26] MEDS: Levothyroxine 150 MCG TAB PO SCH (06:06)
--- NOTE | 2017-03-26 07:14 | CT ---
PROCEDURE: CT Abdomen and Pelvis without intravenous contrast HISTORY: Renal colic COMPARISON: 03/15/2017. TECHNIQUE: Technique. Contrast Dose: Radiation dose: Total exam DLP = 733 mGy-cm. This CT exam was performed using one or more of the following dose reduction techniques: Automated exposure control, adjustment of the mA and/or kV according to patient size, and/or use of iterative reconstruction technique. FINDINGS: LOWER THORAX: Unremarkable. LIVER: Unremarkable. No gross lesion or ductal dilatation. GALLBLADDER AND BILE DUCTS: Unremarkable. PANCREAS: Unremarkable. No gross lesion or ductal dilatation. SPLEEN: Unremarkable. ADRENALS: Unremarkable. No mass. KIDNEYS AND URETERS: Mild left hydronephrosis with a roughly 4 millimeter obstructive calculus in the proximal left ureter. VASCULATURE: Unremarkable. No aortic aneurysm. BOWEL: Unremarkable. No obstruction. No gross mural thickening. APPENDIX: Unremarkable. Normal appendix. PERITONEUM: Unremarkable. No free fluid. No free air. LYMPH NODES: Unremarkable. No enlarged lymph nodes. BLADDER: Unremarkable. REPRODUCTIVE: Unremarkable. BONES: No acute fracture. OTHER FINDINGS: None. IMPRESSION: Mild left hydronephrosis with a roughly 4 millimeter obstructive calculus in the proximal left ureter.
[2017-03-26 16:48] VITALS: RESP 18
[2017-03-27 06:32] LABS: BASO # 0.08 K/mm3 (0.0-2.0); BASO % 0.8 % (0.0-3.0); EOS # 0.4 (0.0-0.7); GRAN # 6.08 (1.4-6.5); GRAN % 61.6 % (50.0-68.0); HEMOGLOBIN 11.4 g/dL (12.0-16.0); LYMPH # 2.6 (1.2-3.4); LYMPH % 26.3 % (22.0-35.0); MEAN CELL VOLUME 80.1 fl (80.0-105.0); MEAN CORPUSCULAR HEMOGLOBIN 25.4 pg (25.0-35.0); MEAN CORPUSCULAR HGB CONC 31.8 g/dl (31.0-37.0); MEAN PLATELET VOLUME 11.5 fl (7.0-11.0); MONO # 0.7 (0.1-0.6); MONO % 7.3 % (1.0-6.0); PLATELET COUNT 243 10^3/uL (120.0-450.0); RBC 4.48 10^6/uL (3.5-6.1); RED CELL DISTRIBUTION WIDTH 22.7 % (11.5-14.5); WHITE BLOOD COUNT 9.9 10^3/ul (4.5-11.0)
[2017-03-27] MEDS: Levothyroxine 150 MCG TAB PO SCH (06:39)
[2017-03-27] MEDS: Morphine 2 mg/ml ISec IVP PRN (06:43)
[2017-03-27 06:44] LABS: BLOOD UREA NITROGEN 11 mg/dL (7-21); GFR AFRICAN-AMERICAN > 60; GFR NON-AFRICAN AMERICAN > 60
[2017-03-27 08:49] VITALS: BP 120/68; PULSE 58; TEMP 98.1; O2SAT 95
--- NOTE | 2017-03-27 20:29 | CP.PCM.DIS ---
<Julius Herman - Last Filed: 03/28/17 13:08> Provider - Provider Date of Admission: 03/26/17 03:37 Attending physician: Pavel Acuña MD Primary care physician: Candido Thornton MD Consults: Time Spent in preparation of Discharge (in minutes): 36 Hospital Course - Lab Results Lab Results: Most Recent Lab Values WBC 9.9 10^3/ul (4.5-11.0) D 03/27/17 06:10 RBC 4.48 10^6/uL (3.5-6.1) 03/27/17 06:10 Hgb 11.4 g/dL (12.0-16.0) L 03/27/17 06:10 Hct 35.9 % (36.0-48.0) L 03/27/17 06:10 MCV 80.1 fl (80.0-105.0) 03/27/17 06:10 MCH 25.4 pg (25.0-35.0) 03/27/17 06:10 MCHC 31.8 g/dl (31.0-37.0) 03/27/17 06:10 RDW 22.7 % (11.5-14.5) H 03/27/17 06:10 Plt Count 243 10^3/uL (120.0-450.0) 03/27/17 06:10 MPV 11.5 fl (7.0-11.0) H 03/27/17 06:10 Gran % 61.6 % (50.0-68.0) 03/27/17 06:10 Lymph % (Auto) 26.3 % (22.0-35.0) 03/27/17 06:10 [place] % (Auto) 7.3 % (1.0-6.0) H 03/27/17 06:10 Eos % (Auto) 4.0 % (1.5-5.0) 03/27/17 06:10 Baso % (Auto) 0.8 % (0.0-3.0) 03/27/17 06:10 Gran # 6.08 (1.4-6.5) 03/27/17 06:10 Lymph # 2.6 (1.2-3.4) 03/27/17 06:10 [place] # 0.7 (0.1-0.6) H 03/27/17 06:10 Eos # 0.4 (0.0-0.7) 03/27/17 06:10 Baso # 0.08 K/mm3 (0.0-2.0) 03/27/17 06:10 Sodium 139 mmol/L (132-148) 03/27/17 06:10 Potassium 3.9 mmol/L (3.6-5.0) 03/27/17 06:10 Chloride 109 mmol/L (98-107) H 03/27/17 06:10 Carbon Dioxide 24 mmol/L (21-33) 03/27/17 06:10 Anion Gap 10 (10-20) 03/27/17 06:10 BUN 11 mg/dL (7-21) 03/27/17 06:10 Creatinine 0.7 mg/dL (0.5-1.4) 03/27/17 06:10 Est GFR ( Amer) > 60 03/27/17 06:10 Est GFR (Non-Af Amer) > 60 03/27/17 06:10 Random Glucose 78 mg/dL (70-110) 03/27/17 06:10 Calcium 8.0 mg/dL (8.4-10.5) L 03/27/17 06:10 Total Bilirubin 0.5 mg/dL (0.2-1.3) 03/26/17 00:45 AST 73 U/L (15-39) H 03/26/17 00:45 ALT 22 U/L (7-56) 03/26/17 00:45 Alkaline Phosphatase 61 U/L (38-133) 03/26/17 00:45 Total Protein 7.1 g/dL (5.8-8.3) 03/26/17 00:45 Albumin 4.1 g/dL (3.0-4.8) 03/26/17 00:45 Globulin 3.0 gm/dL 03/26/17 00:45 Albumin/Globulin Ratio 1.4 (1.1-1.8) 03/26/17 00:45 Urine Color Yellow (YELLOW) 03/26/17 00:45 Urine Appearance Cloudy (CLEAR) 03/26/17 00:45 Urine pH 5.5 (4.7-8.0) 03/26/17 00:45 Ur Specific [place] >= 1.030 (1.005-1.035) 03/26/17 00:45 Urine Protein 100 mg/dL (<30 mg/dL) H 03/26/17 00:45 Urine Glucose (UA) Negative mg/dL (NEGATIVE) 03/26/17 00:45 Urine Ketones Negative mg/dL (NEGATIVE) 03/26/17 00:45 Urine Blood Large (NEGATIVE) H 03/26/17 00:45 Urine Nitrate Negative (NEGATIVE) 03/26/17 00:45 Urine Bilirubin Negative (NEGATIVE) 03/26/17 00:45 Urine Urobilinogen 0.2 E.U./dL (<1 E.U./dL) 03/26/17 00:45 Ur Leukocyte Esterase Moderate [place]/uL (NEGATIVE) H 03/26/17 00:45 Urine RBC 2 - 5 /hpf (0-2) 03/26/17 00:45 Urine WBC Tntc /hpf (0-6) 03/26/17 00:45 Ur Epithelial Cells 1 - 3 /hpf (0-5) 03/26/17 00:45 Urine Bacteria Many (NEG) 03/26/17 00:45 - Hospital Course Hospital Course: This is a 26 yo F with PMH of papillary thyroid cancer s/p resection and rads (currently in remission), chronic synthroid supplementation, depression , anxiety, and prior nephrolithiases s/p recent stenting and stent removal who presents to [facility] [place] with acute onset of severe left flank and back pain that began at 9pm prior to admission. As per patient, she had her stent removed approximately 3 days ago, and has been continuing on PO antibiotics as per her Urologist. She experienced acutely increased urinary frequency yesterday, but attributed it to being on antibiotics and did not think much of it. However, her last episode of urination prior to presentation became acutely painful, L abdomen/flank > R, and patient reported passing clots in her urine. She states that her symptoms are comparable to her last episodes of nephrolithiasis. Denies chest pain, shortness of breath, focal weakness, hemoptysis, hematemesis. In the ED, scanning was indicative of a 4x3mm stone in the left proximal ureter.Recurrent left ureteric calculus, h/o ureteric stent on 03/17, then lithotripisy on 03/22, and stent removal on 03/24 with left flank pain since last night 9 pm with blood in the urine CT abd/pelvis, left 4x3 mm ureteric caluculus with hydro, wbc 17K, pmh as above of aggressive ivf, flomax, continue cipro, urology consult, strain urine, pain control. She was discharged after she was medically stable and sent home with antibiotcs, pyridium, and Flomax. - Date & Time of H&P Date of H&P: 03/27/17 Time of H&P: 13:00 Discharge Exam - Head Exam Head Exam: ATRAUMATIC, NORMOCEPHALIC - Eye Exam Eye Exam: EOMI, Normal appearance, PERRL - ENT Exam ENT Exam: Mucous Membranes Moist, Normal Oropharynx - Neck Exam Neck exam: Normal Inspection, Tenderness - Respiratory Exam Respiratory Exam: Clear to PA & Lateral, NORMAL BREATHING PATTERN, UNREMARKABLE - Cardiovascular Exam Cardiovascular Exam: REGULAR RHYTHM, +S1, +S2 - GI/Abdominal Exam GI & Abdominal Exam: Normal Bowel Sounds, Unremarkable. absent: Guarding, Mass - Rectal Exam Rectal Exam: Deferred - Exam Exam: NORMAL INSPECTION. absent: Bladder Distension - Back Exam Back exam: paraspinal tenderness. absent: CVA tenderness (L), CVA tenderness (R ) - Neurological Exam Neurological exam: Alert, CN II-XII Intact, Oriented x3 - Psychiatric Exam Psychiatric exam: Depressed, Normal Affect - Skin Skin Exam: Dry, Intact, Normal Color Discharge Plan - Discharge Medications Prescriptions: Ciprofloxacin [Cipro] 500 mg PO BID #10 tab Phenazopyridine HCl [Pyridium] 200 mg PO TID #6 tablet Tamsulosin HCl [Flomax] 0.4 mg PO ONCE #15 cap.er.24h traMADol [Ultram] 25 mg PO Q6 PRN #15 tab PRN Reason: Pain, Moderate (4-7) - Follow Up Plan Condition: STABLE Disposition: HOME/ ROUTINE Instructions: Kidney Stones (DC), Kidney Stones (GEN), Urinary Tract Infection in Women (DC), Urinary Tract Infection in Men (DC), Acute Hematuria (DC), Acute Hematuria (GEN), Dysuria (GEN) Additional Instructions: 1. Stay well hydrated. 2. Follow up with Primary Medical Doctor, Dr. Thornton, within one week. 3. Follow up with Dr. Arguelles as an outpatient. 4. Take all prescribed medication as directed, unless otherwise indicated. Referrals: Candido Thornton MD [Primary Care Provider] - <Pavel Acuña MD - Last Filed: 03/28/17 14:16> Provider - Provider Date of Admission: 03/26/17 03:37 Attending physician: Pavel Acuña MD Primary care physician: Candido Thornton MD Hospital Course - Lab Results Lab Results: Most Recent Lab Values WBC 9.9 10^3/ul (4.5-11.0) D 03/27/17 06:10 RBC 4.48 10^6/uL (3.5-6.1) 03/27/17 06:10 Hgb 11.4 g/dL (12.0-16.0) L 03/27/17 06:10 Hct 35.9 % (36.0-48.0) L 03/27/17 06:10 MCV 80.1 fl (80.0-105.0) 03/27/17 06:10 MCH 25.4 pg (25.0-35.0) 03/27/17 06:10 MCHC 31.8 g/dl (31.0-37.0) 03/27/17 06:10 RDW 22.7 % (11.5-14.5) H 03/27/17 06:10 Plt Count 243 10^3/uL (120.0-450.0) 03/27/17 06:10 MPV 11.5 fl (7.0-11.0) H 03/27/17 06:10 Gran % 61.6 % (50.0-68.0) 03/27/17 06:10 Lymph % (Auto) 26.3 % (22.0-35.0) 03/27/17 06:10 [place] % (Auto) 7.3 % (1.0-6.0) H 03/27/17 06:10 Eos % (Auto) 4.0 % (1.5-5.0) 03/27/17 06:10 Baso % (Auto) 0.8 % (0.0-3.0) 03/27/17 06:10 Gran # 6.08 (1.4-6.5) 03/27/17 06:10 Lymph # 2.6 (1.2-3.4) 03/27/17 06:10 [place] # 0.7 (0.1-0.6) H 03/27/17 06:10 Eos # 0.4 (0.0-0.7) 03/27/17 06:10 Baso # 0.08 K/mm3 (0.0-2.0) 03/27/17 06:10 Sodium 139 mmol/L (132-148) 03/27/17 06:10 Potassium 3.9 mmol/L (3.6-5.0) 03/27/17 06:10 Chloride 109 mmol/L (98-107) H 03/27/17 06:10 Carbon Dioxide 24 mmol/L (21-33) 03/27/17 06:10 Anion Gap 10 (10-20) 03/27/17 06:10 BUN 11 mg/dL (7-21) 03/27/17 06:10 Creatinine 0.7 mg/dL (0.5-1.4) 03/27/17 06:10 Est GFR ( Amer) > 60 03/27/17 06:10 Est GFR (Non-Af Amer) > 60 03/27/17 06:10 Random Glucose 78 mg/dL (70-110) 03/27/17 06:10 Calcium 8.0 mg/dL (8.4-10.5) L 03/27/17 06:10 Total Bilirubin 0.5 mg/dL (0.2-1.3) 03/26/17 00:45 AST 73 U/L (15-39) H 03/26/17 00:45 ALT 22 U/L (7-56) 03/26/17 00:45 Alkaline Phosphatase 61 U/L (38-133) 03/26/17 00:45 Total Protein 7.1 g/dL (5.8-8.3) 03/26/17 00:45 Albumin 4.1 g/dL (3.0-4.8) 03/26/17 00:45 Globulin 3.0 gm/dL 03/26/17 00:45 Albumin/Globulin Ratio 1.4 (1.1-1.8) 03/26/17 00:45 Urine Color Yellow (YELLOW) 03/26/17 00:45 Urine Appearance Cloudy (CLEAR) 03/26/17 00:45 Urine pH 5.5 (4.7-8.0) 03/26/17 00:45 Ur Specific [place] >= 1.030 (1.005-1.035) 03/26/17 00:45 Urine Protein 100 mg/dL (<30 mg/dL) H 03/26/17 00:45 Urine Glucose (UA) Negative mg/dL (NEGATIVE) 03/26/17 00:45 Urine Ketones Negative mg/dL (NEGATIVE) 03/26/17 00:45 Urine Blood Large (NEGATIVE) H 03/26/17 00:45 Urine Nitrate Negative (NEGATIVE) 03/26/17 00:45 Urine Bilirubin Negative (NEGATIVE) 03/26/17 00:45 Urine Urobilinogen 0.2 E.U./dL (<1 E.U./dL) 03/26/17 00:45 Ur Leukocyte Esterase Moderate [place]/uL (NEGATIVE) H 03/26/17 00:45 Urine RBC 2 - 5 /hpf (0-2) 03/26/17 00:45 Urine WBC Tntc /hpf (0-6) 03/26/17 00:45 Ur Epithelial Cells 1 - 3 /hpf (0-5) 03/26/17 00:45 Urine Bacteria Many (NEG) 03/26/17 00:45 Attending/Attestation - Attestation I have personally seen and examined this patient.: Yes I have fully participated in the care of the patient.: Yes I have reviewed all pertinent clinical information, including history, physical exam and plan: Yes Notes (Text): 03/28/17 14:13 Patient was seen and examined with medical assisting program director. Agreed with resident assessment and plan. Patient is feeling better today.Her pain has improved.She is afebrile.She was treated with ciprofloxacin for UTI.Her WBC has come down from 16.6 to 9.8/Her urinary symptoms has improved/Her blood culture are negative at the time of discharge.She is discharge home with oral ciprofloxacin for UTI. Management plan was discussed in detail with patient Education was provided. 03/28/17 14:14
== END 2017-03-27 12:49 | disposition home or self-care (01) ==
LOC: ED 23:57 → ERH 03-26 03:37 → 3RSO 03-26 03:58 → ERH 03-26 03:59 → 3RSO 03-26 04:54
PROVIDERS: ADMIT Internal Medicine; ATTEND Internal Medicine
DX: N13.2 Hydronephrosis with renal and ureteral calculous obstruction (principal); N39.0 Urinary tract infection, site not specified; J45.909 Unspecified asthma, uncomplicated; I10 Essential (primary) hypertension; F41.9 Anxiety disorder, unspecified; F32.89 Other specified depressive episodes; Z81.8 Family history of other mental and behavioral disorders; Z85.850 Personal history of malignant neoplasm of thyroid; Z87.442 Personal history of urinary calculi; Z87.891 Personal history of nicotine dependence; B96.20 Unspecified Escherichia coli [E. coli] as the cause of diseases classified elsewhere; R31.9 Hematuria, unspecified; Z88.1 Allergy status to other antibiotic agents; Z91.030 Bee allergy status; Z91.038 Other insect allergy status; Z87.892 Personal history of anaphylaxis; R40.2412 Glasgow coma scale score 13-15, at arrival to emergency department; Z80.9 Family history of malignant neoplasm, unspecified; D72.829 Elevated white blood cell count, unspecified
CPT/HCPCS: 36415; 74176; 80048; 80053; 81001; 85025; 87040; 87086; 87181; 96361; 96365; 96375; 96376; 99282; C9113; G0378; J0696; J1885; J2270; J2405; J7040

== ENCOUNTER 2017-03-31 14:26 | Inpatient (IN) | payer OTHER ==
[2017-03-31 14:29] VITALS: BMI 30.1
--- NOTE | 2017-03-31 14:42 | ED PDOC ---
Arrival/HPI - General Chief Complaint: Abdominal Pain Time Seen by Provider: 03/31/17 14:30 - History of Present Illness Narrative History of Present Illness (Text): 03/31/17 14:40 Patient is a 26 year old F with kidney stones s/p recent stenting and lithotripsy, with discharge from the hospital 2 days ago after admission for calculus with hydro and leukocytosis, discharged on ciprofloxacin, pyridium and flomax, who saw Dr. Ralph Chavis this morning due to fever to 102, with abdominal pain and vomiting. Ucx resulted today and showed ESBL E.coli resistant to cipro but sensitive to bactirm and macrobid 03/31/17 14:46 Past Medical History - Infectious Disease Hx of Infectious Diseases: None - Cardiac Hx Cardiac Disorders: Yes Hx Hypertension: Yes - Pulmonary Hx Respiratory Disorders: Yes Hx Asthma: Yes - Neurological Hx Neurological Disorder: No - HEENT Hx HEENT Disorder: No - Renal Hx Renal Disorder: No Other/Comment: Pylonephritis - Endocrine/Metabolic Hx Endocrine Disorders: Yes Hx Hypothyroidism: Yes Other/Comment: Papillary thyroid CA - Hematological/Oncological Hx Blood Disorders: No - Integumentary Hx Dermatological Disorder: No - Musculoskeletal/Rheumatological Hx Falls: No - Gastrointestinal Hx Gastrointestinal Disorders: No - Genitourinary/Gynecological Hx Genitourinary Disorders: No - Psychiatric Hx Psychophysiologic Disorder: Yes Hx Anxiety: Yes Hx Depression: Yes Hx Substance Use: No - Surgical History Hx Section: Yes (1) Hx Thyroidectomy: Yes Other/Comment: stent removal left kidney, multiple - Anesthesia Hx Anesthesia: Yes Hx Anesthesia Reactions: No Hx Malignant Hyperthermia: No Family/Social History Family/Social History: No Known Family HX Smoking Status: Never Smoked Hx Alcohol Use: Yes Hx Substance Use: No Allergies/Home Meds Allergies/Adverse Reactions: Allergies amoxicillin Allergy (Verified 03/31/17 14:28) ANAPHYLAXIS latex Allergy (Verified 03/31/17 14:28) ANAPHYLAXIS spider venom Allergy (Verified 03/31/17 14:28) ANAPHYLAXIS BEE STING Allergy (Uncoded 03/31/17 14:28) ANAPHYLAXIS Home Medications: Home Meds Medication Instructions Recorded Confirmed Levothyroxine Sodium [Synthroid] 300 mcg PO DAILY 03/15/17 03/31/17 Review of Systems - Review of Systems Eyes: absent: Vision Changes ENT: absent: Hearing Changes Respiratory: absent: SOB, Cough, Sputum, Wheezing Cardiovascular: absent: Chest Pain Gastrointestinal: Abdominal Pain, Nausea, Vomiting. absent: Constipation, Diarrhea Genitourinary Female: Dysuria, Frequency, Hematuria Musculoskeletal: Arthralgias Skin: absent: Rash Neurological: absent: Headache Psychiatric: absent: Anxiety Physical Exam Vital Signs Temp Pulse Resp BP Pulse Ox 03/31/17 16:50 98 H 16 138/84 99 03/31/17 14:32 99.3 F 109 H 20 137/79 100 Temperature: Afebrile Blood Pressure: Normal Pulse: Tachycardic Respiratory Rate: Normal Appearance: Positive for: Well-Appearing, Non-Toxic, Uncomfortable Pain Distress: Moderate Mental Status: Positive for: Alert and Oriented X 3 - Systems Exam Head: Present: Atraumatic, Normocephalic Pupils: Present: PERRL Mouth: Present: Moist Mucous Membranes Neck: Present: Normal Range of Motion Respiratory/Chest: Present: Clear to Auscultation, Good Air Exchange. No: Respiratory Distress, Accessory Muscle Use Cardiovascular: Present: Regular Rate and Rhythm, Normal S1, S2. No: Murmurs Abdomen: Present: Tenderness (diffuse suprapubic). No: Distention, Rebound, Guarding Back: Present: Normal Inspection Upper Extremity: Present: Normal Inspection Lower Extremity: Present: Normal Inspection Neurological: Present: GCS=15, CN II-XII Intact, Speech Normal Psychiatric: Present: Alert, Oriented x 3 Medical Decision Making ED Course and Treatment: 03/31/17 15:[address] Chavis who is requesting admission under his name due to her persistent pain, vomiting and fever. Requesting renal ultrasound and KUB, with ID and GI consult. Requesting bactrim for coverage due to recent ucx, until further evaluation by ID - Lab Interpretations Lab Results: 03/31/17 15:15 03/31/17 15:15 Lab Results 03/31/17 15:15: Sodium 140, Chloride 101, Potassium 3.8, Carbon Dioxide 27, Anion Gap 16, BUN 12, Creatinine 0.8, Est GFR ( Amer) > 60, Est GFR (Non- Af Amer) > 60, Random Glucose 95, Calcium 9.5, Total Bilirubin 0.7, AST 21, ALT 24, Alkaline Phosphatase 74, Total Protein 8.0, Albumin 4.7, Globulin 3.3, Albumin/Globulin Ratio 1.4 03/31/17 15:15: pO2 34, VBG pH 7.34, VBG pCO2 54.0, VBG HCO3 29.1 H, VBG Total CO2 30.8 H, VBG O2 Sat (Calc) 70.0 H, VBG Base Excess 2.1 H, VBG Potassium 3.9, Sodium 140.0, Chloride 104.0, Glucose 97, Lactate 1.1, FiO2 21.0, Venous Blood Potassium 3.9 03/31/17 15:15: Urine Color Yellow, Urine Appearance Sl cloudy, Urine pH 6.0, Ur Specific [place] >= 1.030, Urine Protein 100 H, Urine Glucose (UA) Negative, Urine Ketones Negative, Urine Blood Large H, Urine Nitrate Negative, Urine Bilirubin Negative, Urine Urobilinogen 0.2, Ur Leukocyte Esterase Small H, Urine RBC Tntc, Urine WBC 25 - 30, Ur Epithelial Cells 6 - 8, Urine Bacteria Mod 03/31/17 15:15: WBC 18.9 H D, RBC 4.94, Hgb 12.8, Hct 39.9, MCV 80.8, MCH 25.9, MCHC 32.1, RDW 22.9 H, Plt Count 247, MPV 11.2 H, Gran % 83.9 H, Lymph % (Auto) 5.6 L, [place] % (Auto) 9.6 H, Eos % (Auto) 0.6 L, Baso % (Auto) 0.3, Gran # 15.88 H, Lymph # 1.1 L, [place] # 1.8 H, Eos # 0.1, Baso # 0.05 - RAD Interpretation Radiology Orders: 03/31/17 15:30 ABDOMEN (FLAT PLATE) 1VIEW [RAD] Stat RENAL [US] Stat - Medication Orders Current Medication Orders: Trimethoprim/Sulfamethoxazole (Bactrim Inj) 617 mg 8 mg/kg (617 mg) IVPB Q12H MEG PRN Reason: Protocol Discontinued Medications Sodium Chloride (Sodium Chloride 0.9%) 1,000 mls @ 999 mls/hr IV .Q1H1M STA Stop: 03/31/17 15:43 Last Admin: 03/31/17 15:10 Dose: 999 mls/hr Ketorolac Tromethamine (Toradol) 30 mg IVP STAT STA Stop: 03/31/17 16:01 Last Admin: 03/31/17 16:06 Dose: 30 mg Morphine Sulfate (Morphine) 4 mg IVP STAT STA Stop: 03/31/17 14:44 Last Admin: 03/31/17 15:22 Dose: 4 mg Ondansetron HCl (Zofran Inj) 4 mg IVP STAT STA Stop: 03/31/17 14:44 Last Admin: 03/31/17 15:23 Dose: 4 mg Trimethoprim/Sulfamethoxazole (Bactrim Ds Tab) 1 tab PO STAT STA PRN Reason: Protocol Stop: 03/31/17 15:32 Last Admin: 03/31/17 16:06 Dose: 1 tab Disposition/Present on Arrival - Present on Arrival Any Indicators Present on Arrival: No History of DVT/PE: No History of Uncontrolled Diabetes: No Urinary Catheter: No History of Decub. Ulcer: No History Surgical Site Infection Following: None - Disposition Have Diagnosis and Disposition been Completed?: Yes Diagnosis: UTI (urinary tract infection), Kidney stone Disposition: HOSPITALIZED Disposition Time: 14:33 Patient Plan: Admission Patient Problems: Current Active Problems Problem Status Onset Kidney stone Acute UTI (urinary tract infection) Acute Condition: FAIR
[2017-03-31] MEDS ORDERED: Sodium Chloride 0.9% 1,000 ML IV STA (14:43)
[2017-03-31] MEDS ORDERED: Morphine 4 mg/ml ISec IVP STA (14:43)
[2017-03-31 15:25] LABS: ADD MANUAL DIFF? NO
[2017-03-31 15:31] LABS: VENOUS BLOOD GAS BASE EXCESS 2.1 mmol/L (0.0-2.0); VENOUS BLOOD PH 7.34 (7.32-7.43)
[2017-03-31] MEDS ORDERED: Tmp-Smz 800 mg-160 mg DS Tab PO STA (15:31)
[2017-03-31 15:36] LABS: BASO # 0.05 K/mm3 (0.0-2.0); BASO % 0.3 % (0.0-3.0); EOS # 0.1 (0.0-0.7); EOS % 0.6 % (1.5-5.0); GRAN # 15.88 (1.4-6.5); GRAN % 83.9 % (50.0-68.0); HEMATOCRIT 39.9 % (36.0-48.0); LYMPH # 1.1 (1.2-3.4); LYMPH % 5.6 % (22.0-35.0); MEAN CELL VOLUME 80.8 fl (80.0-105.0); MEAN CORPUSCULAR HEMOGLOBIN 25.9 pg (25.0-35.0); MEAN CORPUSCULAR HGB CONC 32.1 g/dl (31.0-37.0); MEAN PLATELET VOLUME 11.2 fl (7.0-11.0); MONO # 1.8 (0.1-0.6); MONO % 9.6 % (1.0-6.0); RED CELL DISTRIBUTION WIDTH 22.9 % (11.5-14.5); WHITE BLOOD COUNT 18.9 10^3/ul (4.5-11.0)
[2017-03-31 15:40] LABS: ALB/GLOB RATIO 1.4 (1.1-1.8); ALKALINE PHOSPHATASE 74 U/L (38-133); ALT/SGPT 24 U/L (7-56); AST/SGOT 21 U/L (15-39); BILIRUBIN,TOTAL 0.7 mg/dL (0.2-1.3); BLOOD UREA NITROGEN 12 mg/dL (7-21); CALCIUM 9.5 mg/dL (8.4-10.5); CARBON DIOXIDE 27 mmol/L (21-33); CHLORIDE 101 mmol/L (98-107); GFR AFRICAN-AMERICAN > 60; GLUCOSE,RANDOM 95 mg/dL (70-110); POTASSIUM 3.8 mmol/L (3.6-5.0); SODIUM 140 mmol/L (132-148)
[2017-03-31 15:49] LABS: URINE BILIRUBIN NEGATIVE (NEGATIVE); URINE BLOOD LARGE (NEGATIVE); URINE GLUCOSE (UA) NEGATIVE (NEGATIVE); URINE KETONE NEGATIVE (NEGATIVE); URINE LEUKOCYTE ESTERASE SMALL Leu/uL (NEGATIVE); URINE PROTEIN 100 mg/dL (<30 mg/dL); URINE UROBILINOGEN 0.2 E.U./dL (<1 E.U./dL)
[2017-03-31 15:56] LABS: URINE APPEARANCE SL CLOUDY (CLEAR); URINE COLOR YELLOW (YELLOW)
[2017-03-31 16:15] LABS: URINE BACTERIA MOD (NEG); URINE RBC TNTC /hpf (0-2); URINE WBC 25 - 30 /hpf (0-6)
[2017-03-31 16:20] LABS: PLATELET COUNT 247 10^3/uL (120.0-450.0)
[2017-03-31] MEDS ORDERED: Tmp-Smz 16 mg-80 mg/ml Inj IVPB SCH (17:30)
--- NOTE | 2017-03-31 17:34 | US ---
PROCEDURE: Ultrasound of the Kidneys HISTORY: renal stones, fever, uti COMPARISON: None available. TECHNIQUE: Sonogram of the kidneys. FINDINGS: RIGHT KIDNEY: Measures: 11.4 cm. Normal in size, contour and echogenicity. No stone, solid mass lesion or hydronephrosis visualized. LEFT KIDNEY: Measures: 11.5 cm. Normal in size, contour and echogenicity. No stone, solid mass lesion or hydronephrosis visualized. There is a linear echogenic focus in the left interpolar region nonspecific and could represent vascular shadow or non shadowing Calcification. OTHER FINDINGS: None. IMPRESSION: No hydronephrosis or nephrolithiasis.
--- NOTE | 2017-03-31 17:41 | RAD ---
HISTORY: renal stone, abdominal pain COMPARISON: CT abdomen and pelvis from 03/26/2017 FINDINGS: Left-sided pelves ureteral stent remains in customary position. The proximal ureteral stone identified on CT scan is not distinctly seen on radiographic examination There is a faint 5 mm calcification overlying the left renal silhouette. BOWEL: Normal. No obstruction. No free air. BONES: Normal. OTHER FINDINGS: There is a small phlebolith in the right hemipelvis. IMPRESSION: Left ureteral stent remains in customary position. The proximal ureteral stone identified on CT scan is not distinctly visualized on plain radiograph. Suspect 5 mm stone in the left lower pole.
[2017-03-31] MEDS ORDERED: WATER IVPB SCH (18:00)
[2017-03-31] MEDS ORDERED: TRIMETHOPRIM IVPB SCH (18:00)
[2017-03-31] MEDS ORDERED: SULFAMETHOXAZOLE IVPB SCH (18:00)
[2017-03-31] MEDS ORDERED: DEXTROSE 5% IVPB SCH (18:00)
--- NOTE | 2017-03-31 18:19 | PCM.URO ---
Urology Progress Note - Subjective Abdominal Pain: Yes (pyelonehpritis, ) Flank Pain: Yes (") Nausea: Yes (") Vomiting: Yes (") - Objective Lab Studies: Reviewed (wbc 18) Vital Signs: Vital Signs - 24 hr 03/31/17 16:50 Pulse Rate 98 H Respiratory 16 Rate Blood Pressure 138/84 O2 Sat by Pulse 99 Oximetry - Plan Advance Diet: Yes - Date & Time of Note Date: 03/31/17
[2017-03-31] MEDS: Morphine 2 mg/ml ISec IVP PRN (20:49)
[2017-03-31] MEDS ORDERED: Dextrose 5%/0.45% NS 1,000 ML IV SCH (22:00)
[2017-03-31] MEDS ORDERED: Pneumococcal 23-Valent Vaccine IM ONE (22:34)
[2017-04-01] MEDS: Morphine 2 mg/ml ISec IVP PRN ×3 (04:33→20:35)
[2017-04-01] MEDS: WATER IVPB SCH ×2 (05:02→16:13)
[2017-04-01] MEDS: SULFAMETHOXAZOLE IVPB SCH ×2 (05:02→16:13)
[2017-04-01] MEDS: DEXTROSE 5% IVPB SCH ×2 (05:02→16:13)
[2017-04-01] MEDS: TRIMETHOPRIM IVPB SCH ×2 (05:02→16:13)
[2017-04-01 06:51] LABS: ADD MANUAL DIFF? NO
[2017-04-01 07:08] LABS: BASO # 0.05 K/mm3 (0.0-2.0); BASO % 0.2 % (0.0-3.0); EOS % 0.1 % (1.5-5.0); GRAN # 16.69 (1.4-6.5); GRAN % 82.3 % (50.0-68.0); HEMATOCRIT 35.1 % (36.0-48.0); LYMPH # 1.3 (1.2-3.4); LYMPH % 6.4 % (22.0-35.0); MEAN CELL VOLUME 80.5 fl (80.0-105.0); MEAN CORPUSCULAR HEMOGLOBIN 25.7 pg (25.0-35.0); MEAN CORPUSCULAR HGB CONC 31.9 g/dl (31.0-37.0); MEAN PLATELET VOLUME 11.3 fl (7.0-11.0); MONO # 2.2 (0.1-0.6); PLATELET COUNT 201 10^3/uL (120.0-450.0); RED CELL DISTRIBUTION WIDTH 22.9 % (11.5-14.5); WHITE BLOOD COUNT 20.3 10^3/ul (4.5-11.0)
[2017-04-01] MEDS: Aztreonam 2 Gm in NS 100mL 100 ML IVPB SCH ×3 (09:52→21:37)
[2017-04-01] MEDS: Dextrose 5%/0.45% NS 1,000 ML IV SCH ×2 (10:44→21:37)
--- NOTE | 2017-04-01 11:01 | CP.PCM.CON ---
History of Present Illness - History of Present Illness History of Present Illness: 26 year old female with PMH of nephrolithiasis S/P stenting on the right and lithotripsy, history of pyelonephritis, obesity with BMI 30 was recently discharged from [facility] [place] for renal calculus. She was sent home on PO Ciprofloxacin. At the time, the urine cx showed ESBL-producing E. coli. She was seen by her Urologist yesterday and she had fever, abdominal pain, nausea and vomiting and was immediately sent to the ED. She denies headache or dizziness, no chest pain, no SOB, no cough or colds, no diarrhea. Infectious diseases consult is requested to further evaluate and manage. Review of Systems - Review of Systems All systems: reviewed and no additional remarkable complaints except (as per HPI ) Past Patient History - Infectious Disease Hx of Infectious Diseases: None - Past Social History Smoking Status: Never Smoked - CARDIAC Hx Cardiac Disorders: Yes Hx Hypertension: Yes - PULMONARY Hx Respiratory Disorders: Yes Hx Asthma: Yes - NEUROLOGICAL Hx Neurological Disorder: No - HEENT Hx HEENT Problems: No - RENAL Hx Chronic Kidney Disease: No Other/Comment: Pylonephritis - ENDOCRINE/METABOLIC Hx Endocrine Disorders: Yes Hx Hypothyroidism: Yes Other/Comment: Papillary thyroid CA - HEMATOLOGICAL/ONCOLOGICAL Hx Blood Disorders: No - INTEGUMENTARY Hx Dermatological Problems: No - MUSCULOSKELETAL/RHEUMATOLOGICAL Hx Falls: No - GASTROINTESTINAL Hx Gastrointestinal Disorders: No - GENITOURINARY/GYNECOLOGICAL Hx Genitourinary Disorders: No - PSYCHIATRIC Hx Psychophysiologic Disorder: Yes Hx Anxiety: Yes Hx Depression: Yes Hx Substance Use: No - SURGICAL HISTORY Hx Section: Yes (1) Hx Thyroidectomy: Yes Other/Comment: stent removal left kidney, multiple - ANESTHESIA Hx Anesthesia: Yes Hx Anesthesia Reactions: No Hx Malignant Hyperthermia: No Meds Allergies/Adverse Reactions: Allergies Allergy/AdvReac Type Severity Reaction Status Date / Time amoxicillin Allergy ANAPHYLAXIS Verified 03/31/17 14:28 latex Allergy ANAPHYLAXIS Verified 03/31/17 14:28 spider venom Allergy ANAPHYLAXIS Verified 03/31/17 14:28 BEE STING Allergy ANAPHYLAXIS Uncoded 03/31/17 14:28 Physical Exam - Constitutional Appears: Other (still feels nasueated, ill-appearing) - Head Exam Head Exam: NORMAL INSPECTION - Neck Exam Neck exam: Negative for: Lymphadenopathy, Meningismus - Respiratory Exam Respiratory Exam: Decreased Breath Sounds. absent: Rales - Cardiovascular Exam Cardiovascular Exam: +S1, +S2 - GI/Abdominal Exam GI & Abdominal Exam: Soft. absent: Tenderness - Back Exam Back exam: CVA tenderness (L), CVA tenderness (R) Results - Vital Signs Recent Vital Signs: Last Vital Signs Temp 99.3 F 03/31/17 14:32 Pulse 98 H 03/31/17 16:50 Resp 16 03/31/17 16:50 BP 138/84 03/31/17 16:50 Pulse Ox 99 03/31/17 16:50 - Labs Result Diagrams: 04/01/17 06:30 03/31/17 15:15 Assessment & Plan - Assessment and Plan (Free Text) Plan: Assessment Consider sepsis due to upper urinary tract infection, with previous urine cx showing ESBL-producing E. coli in this patient with anaphylactic reaction to amoxicillin and Latex nephrolithiasis S/P stenting on the right and lithotripsy history of pyelonephritis obesity with BMI 30 Plan We are unable to give Amikacin (preparation has materials similar to latex) and hesitant to use Merrem (amoxicillin allergy) - started patient on Azactam and Bactrim pending blood and urine cx follow up Urology evaluation and recommendations will monitor clinically
--- NOTE | 2017-04-01 12:09 | CP.PCM.CON ---
<Alysha Sepulveda - Last Filed: 04/01/17 14:00> History of Present Illness - History of Present Illness History of Present Illness: Seen and examined at the bedside earlier today, chart was reviewed. Request for consultation is for abdominal pain. HPI: This is a 26 -year-old female with PMH of , on chronic synthroid supplementation, history of kidney stones status post recent stent and lithotripsy was discharged from the hospital about 3 days ago for admission for calculus with hydronephrosis and leukocytosis, the patient was discharged home but was seen by her urologists secondary to fever of 102, abdominal pain and vomiting. The patient did have a urine culture and that showed ESBL E coli . She reports that her abdominal pain is mainly mid abdomen and diffuse throughout. She does report history of recurrent UTI, on admission she had an abdominal x-ray and that showed left ureteral stent, and a 5 mm stone in the left lower pole. She also went for a renal ultrasound that was negative for hydronephrosis or stones. She complained of having prior to admission hematuria and severe dysuria. Denies any hematemesis/coffee ground vomitus. She is unable to tolerate any solids at this time. Her last bowel movement was yesterday, denies diarrhea, or any melena or bright red blood per rectum. She does complain of acid reflux especially when taking tomato products and when she has increase anxiety. Has never had endoscopy or colonoscopy. PMH: papillary thyroid cancer s/p resection and rads completed 05/2016( currently in remission), HTN, Pyleonephritis, Asthma PSH: Emergency x1, thyroidectomy 2012 FHx: Mother (depression),Aunt: breast cancer SHx: former tobacco, denies EtOH, denies illicits/IVDA Allergies: amoxicillin,latex, bee sting MEDS: as per OCT, reviewed ROS: Systems reviewed with positive finding see HPI Past Patient History - Infectious Disease Hx of Infectious Diseases: None - Past Social History Smoking Status: Never Smoked - CARDIAC Hx Cardiac Disorders: Yes Hx Hypertension: Yes - PULMONARY Hx Respiratory Disorders: Yes Hx Asthma: Yes - NEUROLOGICAL Hx Neurological Disorder: No - HEENT Hx HEENT Problems: No - RENAL Hx Chronic Kidney Disease: No Other/Comment: Pylonephritis - ENDOCRINE/METABOLIC Hx Endocrine Disorders: Yes Hx Hypothyroidism: Yes Other/Comment: Papillary thyroid CA - HEMATOLOGICAL/ONCOLOGICAL Hx Blood Disorders: No - INTEGUMENTARY Hx Dermatological Problems: No - MUSCULOSKELETAL/RHEUMATOLOGICAL Hx Falls: No - GASTROINTESTINAL Hx Gastrointestinal Disorders: No - GENITOURINARY/GYNECOLOGICAL Hx Genitourinary Disorders: No - PSYCHIATRIC Hx Psychophysiologic Disorder: Yes Hx Anxiety: Yes Hx Depression: Yes Hx Substance Use: No - SURGICAL HISTORY Hx Section: Yes (1) Hx Thyroidectomy: Yes Other/Comment: stent removal left kidney, multiple - ANESTHESIA Hx Anesthesia: Yes Hx Anesthesia Reactions: No Hx Malignant Hyperthermia: No Meds Allergies/Adverse Reactions: Allergies Allergy/AdvReac Type Severity Reaction Status Date / Time amoxicillin Allergy ANAPHYLAXIS Verified 03/31/17 14:28 latex Allergy ANAPHYLAXIS Verified 03/31/17 14:28 spider venom Allergy ANAPHYLAXIS Verified 03/31/17 14:28 BEE STING Allergy ANAPHYLAXIS Uncoded 03/31/17 14:28 - Medications Medications: Current Medications Acetaminophen (Tylenol 325mg Tab) 650 mg PO Q6H PRN PRN Reason: Fever >100.4 F Last Admin: 04/01/17 06:15 Dose: 650 mg Trimethoprim/Sulfamethoxazole (617 mg/ Dextrose) 500 mls @ 250 mls/hr IVPB Q12H [facility] Last Admin: 04/01/17 05:02 Dose: 250 mls/hr Aztreonam (Azactam 2 Gm) 100 mls @ 100 mls/hr IVPB Q8 MEG PRN Reason: Protocol Last Admin: 04/01/17 09:52 Dose: 100 mls/hr Dextrose/Sodium Chloride (Dextrose 5%/0.45% Ns 1000 Ml) 1,000 mls @ 100 mls/hr IV .Q10H [facility] Last Admin: 04/01/17 10:44 Dose: Not Given Ketorolac Tromethamine (Toradol) 15 mg IVP Q6 PRN PRN Reason: Pain, moderate (4-7) Last Admin: 04/01/17 09:32 Dose: 15 mg Morphine Sulfate (Morphine) 2 mg IVP Q6 PRN PRN Reason: Pain, severe (8-10) Last Admin: 04/01/17 04:33 Dose: 2 mg Ondansetron HCl (Zofran Inj) 4 mg IVP Q8H PRN PRN Reason: Nausea/Vomiting Last Admin: 04/01/17 04:33 Dose: 4 mg Physical Exam - Constitutional Appears: No Acute Distress - Head Exam Head Exam: NORMAL INSPECTION - Eye Exam Eye Exam: Normal appearance. absent: Scleral icterus - ENT Exam ENT Exam: Mucous Membranes Moist - Neck Exam Neck exam: Positive for: Normal Inspection - Respiratory Exam Respiratory Exam: Clear to Auscultation Bilateral, NORMAL BREATHING PATTERN. absent: Respiratory Distress - Cardiovascular Exam Cardiovascular Exam: +S1, +S2 - GI/Abdominal Exam GI & Abdominal Exam: Distended, Normal Bowel Sounds, Soft. absent: Guarding, Rebound, Tenderness ( mid abdomen but diffused) - Extremities Exam Extremities exam: Positive for: pedal edema (mild), pedal pulses present. Negative for: calf tenderness - Neurological Exam Neurological exam: Alert, Oriented x3 - Skin Skin Exam: Dry, Warm Results - Vital Signs Recent Vital Signs: Last Vital Signs Temp 101.9 F H 04/01/17 07:45 Pulse 107 H 04/01/17 07:45 Resp 20 04/01/17 07:45 BP 104/65 04/01/17 07:45 Pulse Ox 99 04/01/17 07:45 - Labs Result Diagrams: 04/01/17 06:30 03/31/17 15:15 Labs: Laboratory Results - last 24 hr 04/01/17 06:30 WBC 20.3 H RBC 4.36 Hgb 11.2 L Hct 35.1 L MCV 80.5 MCH 25.7 MCHC 31.9 RDW 22.9 H Plt Count 201 MPV 11.3 H Gran % 82.3 H Lymph % (Auto) 6.4 L [place] % (Auto) 11.0 H Eos % (Auto) 0.1 L Baso % (Auto) 0.2 Gran # 16.69 H Lymph # 1.3 [place] # 2.2 H Eos # 0.0 Baso # 0.05 Assessment & Plan - Assessment and Plan (Free Text) Assessment: Assessment: Abdominal pain Sepsis UTI, positive Escherichia coli Status post recent left ureteral stent, lithotripsy History of pyelonephritis H/O Papilary thyroid Cancer PLAN: will put on clears increase IVF D5 1/2 NS from 50 to 100 cc/hr On IV antibiotics as per ID Zofran when necessary, see orders give Pepcid 20 mg IV daily for GI prophylaxis DVT prophylaxis, scd while in bed As per urology and ID Recommend ct scan abdomen and pelvis with oral and IV contrast but patient reports that she got ill after PET scan, drank "orange stuff" and she had N/V. Thank you for this consult and for allowing us to participate in your patient's care, we'll make further recommendations based upon clinical course. Seen and discussed with Dr. Puckett. <Poppy Puckett V - Last Filed: 04/01/17 23:14> Meds - Medications Medications: Current Medications Acetaminophen (Tylenol 325mg Tab) 650 mg PO Q6H PRN PRN Reason: Fever >100.4 F Last Admin: 04/01/17 16:13 Dose: 650 mg Famotidine (Pepcid) 20 mg IVP DAILY [facility] Last Admin: 04/01/17 13:20 Dose: 20 mg Trimethoprim/Sulfamethoxazole (617 mg/ Dextrose) 500 mls @ 250 mls/hr IVPB Q12H [facility] Last Admin: 04/01/17 16:13 Dose: 250 mls/hr Aztreonam (Azactam 2 Gm) 100 mls @ 100 mls/hr IVPB Q8 MEG PRN Reason: Protocol Last Admin: 04/01/17 21:37 Dose: 100 mls/hr Dextrose/Sodium Chloride (Dextrose 5%/0.45% Ns 1000 Ml) 1,000 mls @ 100 mls/hr IV .Q10H [facility] Last Admin: 04/01/17 21:37 Dose: 100 mls/hr Ketorolac Tromethamine (Toradol) 15 mg IVP Q6 PRN PRN Reason: Pain, moderate (4-7) Last Admin: 04/01/17 18:29 Dose: 15 mg Morphine Sulfate (Morphine) 2 mg IVP Q4H PRN PRN Reason: Pain, severe (8-10) Ondansetron HCl (Zofran Inj) 4 mg IVP Q6H PRN PRN Reason: Nausea/Vomiting Stop: 04/02/17 18:25 Last Admin: 04/01/17 18:33 Dose: 4 mg Pantoprazole Sodium (Protonix Inj) 40 mg IVP BID [facility] Last Admin: 04/01/17 18:26 Dose: 40 mg Sucralfate (Carafate Oral Susp) 1 gm PO 0630,1130,1630,2200 [facility] Last Admin: 04/01/17 21:36 Dose: Not Given Results - Vital Signs Recent Vital Signs: Last Vital Signs Temp 98.9 F 04/01/17 17:13 Pulse 102 H 04/01/17 17:12 Resp 20 04/01/17 17:12 BP 115/77 04/01/17 17:12 Pulse Ox 98 04/01/17 17:12 - Labs Result Diagrams: 04/01/17 06:30 03/31/17 15:15 Labs: Laboratory Results - last 24 hr 04/01/17 06:30 WBC 20.3 H RBC 4.36 Hgb 11.2 L Hct 35.1 L MCV 80.5 MCH 25.7 MCHC 31.9 RDW 22.9 H Plt Count 201 MPV 11.3 H Gran % 82.3 H Lymph % (Auto) 6.4 L [place] % (Auto) 11.0 H Eos % (Auto) 0.1 L Baso % (Auto) 0.2 Gran # 16.69 H Lymph # 1.3 [place] # 2.2 H Eos # 0.0 Baso # 0.05 Attending/Attestation - Attestation I have personally seen and examined this patient.: Yes I have fully participated in the care of the patient.: Yes I have reviewed all pertinent clinical information: Yes Notes (Text): this patient was seen and evaluated earlier. complains of abdominal pain episodes of nausea vomiting. WBC count elevated to 20,000. Patient was unable to keep by mouth contrast. Questionable allergic to contrast before. Say she develops a reaction following a PET scan. Patient's history of papillary carcinoma of the thyroid status post thyroidectomy and radiation in the past. CT of the abdomen and pelvis was done with no by mouth or IV contrast and this was reviewed.noticed to have hiatus hernia left to aortic stent placement. This no obstruction or other intra-abdominal acute pathology. Admitted with urosepsis ESBL urinary tract infection status post ureteric stent placement .left renal calculus present she will on examination patient has tenderness mainly the left side of the abdomen ID note was reviewed PLAN Continue high-dose PPI Carafate 1 g by mouth 4 times a day Clear liquid diet Will discuss Dr. Arguelles 04/01/17 23:12
[2017-04-01] MEDS ORDERED: Barium Sulfate Susp 2.1% w/v, 2.0% w/w 450 mL Bottle PO ONE (14:06)
--- NOTE | 2017-04-01 17:28 | CT ---
PROCEDURE: CT Abdomen and Pelvis without Oral or IV contrast. HISTORY: nausea and vomiting COMPARISON: CT abdomen and pelvis without oral or IV contrast performed 03/26/17 TECHNIQUE: Contiguous axial images of the abdomen and pelvis. No oral or IV contrast administered. Coronal and Sagittal reformats generated and reviewed. Radiation dose: Total exam DLP = 632.62 mGy-cm. This CT exam was performed using one or more of the following dose reduction techniques: Automated exposure control, adjustment of the mA and/or kV according to patient size, and/or use of iterative reconstruction technique. FINDINGS: There is limited evaluation of the solid organs without the administration of IV contrast. LOWER THORAX: No visible consolidation, pleural effusion, or pneumothorax. Small to moderate hiatal hernia. LIVER: Unremarkable unenhanced appearance. GALLBLADDER AND BILE DUCTS: Unremarkable unenhanced appearance. PANCREAS: Unremarkable unenhanced appearance. SPLEEN: Unremarkable unenhanced appearance. ADRENALS: Unremarkable unenhanced appearance. KIDNEYS AND URETERS: Left ureteral stent. No hydronephrosis evident bilaterally. No evidence of calcification along the left ureteral stent course. 7 mm nonobstructing left lower pole renal calculus. BLADDER: Mildly thick-walled urinary bladder may be exaggerated by under distension. REPRODUCTIVE: Uterus is present. APPENDIX: The appendix appears within normal limits of caliber. No secondary signs of acute appendicitis. BOWEL: The stomach is nondistended. Lack of oral contrast limits evaluation for bowel pathology. The bowel loops appear within normal limits of caliber without evidence of intestinal obstruction. PERITONEUM: No significant free fluid. No definite free air. LYMPH NODES: No bulky lymphadenopathy identified. VASCULATURE: No aortic aneurysm. BONES: No acute osseous abnormality is detected. OTHER FINDINGS: None. IMPRESSION: Left ureteral stent. No hydronephrosis evident bilaterally. No evidence of calcification along the left ureteral stent course. 7 mm nonobstructing left lower pole renal calculus. Mildly thick-walled urinary bladder may be exaggerated by under distension. Recommend correlation with urinalysis. Small to moderate hiatal hernia.
[2017-04-01] MEDS: Sucralfate 1 gm/10 ml Oral Susp UD PO SCH (21:36)
[2017-04-02] MEDS: DEXTROSE 5% IVPB SCH ×2 (03:03→17:59)
[2017-04-02] MEDS: WATER IVPB SCH ×2 (03:03→17:59)
[2017-04-02] MEDS: TRIMETHOPRIM IVPB SCH ×2 (03:03→17:59)
[2017-04-02] MEDS: SULFAMETHOXAZOLE IVPB SCH ×2 (03:03→17:59)
[2017-04-02] MEDS: Morphine 2 mg/ml ISec IVP PRN ×3 (03:12→21:24)
[2017-04-02] MEDS: Aztreonam 2 Gm in NS 100mL 100 ML IVPB SCH ×2 (05:00→14:51)
--- NOTE | 2017-04-02 05:12 | CP.PCM.PN ---
Subjective - Date & Time of Evaluation Date of Evaluation: 04/02/17 Time of Evaluation: 05:11 - Subjective Subjective: Patient was seen at bedside because she had nausea and vomiting. She received zofran which is of no help to her. Has no other complaints now. ROS:Negative except as mentioned above. Medical record was reviewed. This 26 year old woman was admitted Has PMH of papillary thyroid cancer, HTN, pyelonephritis,renal calculus, lithotripsy, ureteric stent , asthma, C- section, thyroidectomy. Objective - Vital Signs/Intake and Output Vital Signs (last 24 hours): Temp Pulse Resp BP Pulse Ox 98.9 F 102 H 20 115/77 98 04/01/17 17:13 04/01/17 17:12 04/01/17 17:12 04/01/17 17:12 04/01/17 17:12 Intake and Output: 04/01/17 04/02/17 18:59 06:59 Intake Total 980 Balance 980 - Medications Medications: Current Medications Acetaminophen (Tylenol 325mg Tab) 650 mg PO Q6H PRN PRN Reason: Fever >100.4 F Last Admin: 04/01/17 16:13 Dose: 650 mg Famotidine (Pepcid) 20 mg IVP DAILY [facility] Last Admin: 04/01/17 13:20 Dose: 20 mg Trimethoprim/Sulfamethoxazole (617 mg/ Dextrose) 500 mls @ 250 mls/hr IVPB Q12H [facility] Last Admin: 04/02/17 03:03 Dose: 250 mls/hr Aztreonam (Azactam 2 Gm) 100 mls @ 100 mls/hr IVPB Q8 MEG PRN Reason: Protocol Last Admin: 04/02/17 05:00 Dose: 100 mls/hr Dextrose/Sodium Chloride (Dextrose 5%/0.45% Ns 1000 Ml) 1,000 mls @ 100 mls/hr IV .Q10H [facility] Last Admin: 04/01/17 21:37 Dose: 100 mls/hr Ketorolac Tromethamine (Toradol) 15 mg IVP Q6 PRN PRN Reason: Pain, moderate (4-7) Last Admin: 04/01/17 18:29 Dose: 15 mg Morphine Sulfate (Morphine) 2 mg IVP Q4H PRN PRN Reason: Pain, severe (8-10) Last Admin: 04/02/17 03:12 Dose: 2 mg Ondansetron HCl (Zofran Inj) 4 mg IVP Q6H PRN PRN Reason: Nausea/Vomiting Stop: 04/02/17 18:25 Last Admin: 04/02/17 03:12 Dose: 4 mg Pantoprazole Sodium (Protonix Inj) 40 mg IVP BID [facility] Last Admin: 04/01/17 18:26 Dose: 40 mg Sucralfate (Carafate Oral Susp) 1 gm PO 0630,1130,1630,2200 [facility] Last Admin: 04/01/17 21:36 Dose: Not Given - Labs Labs: 04/01/17 06:30 - Constitutional Appears: Well, No Acute Distress - Head Exam Head Exam: ATRAUMATIC, NORMAL INSPECTION, NORMOCEPHALIC - Eye Exam Eye Exam: Normal appearance - ENT Exam ENT Exam: Normal External Ear Exam - Neck Exam Neck Exam: Normal Inspection - Cardiovascular Exam Cardiovascular Exam: absent: JVD - GI/Abdominal Exam GI & Abdominal Exam: absent: Distended - Rectal Exam Rectal Exam: Deferred - Exam Additional comments: Deferred. - Extremities Exam Extremities Exam: Normal Inspection - Back Exam Back Exam: NORMAL INSPECTION - Neurological Exam Neurological Exam: Alert, Awake - Psychiatric Exam Psychiatric exam: Normal Affect, Normal Mood - Skin Skin Exam: Normal Color Assessment and Plan - Assessment and Plan (Free Text) Assessment: Nausea. HTN. Thyroid cancer hx. Asthma. Plan: Reglan 10 mg IV stat. Continue present management.
[2017-04-02] MEDS: Sucralfate 1 gm/10 ml Oral Susp UD PO SCH ×4 (05:54→21:24)
[2017-04-02 08:30] LABS: ADD MANUAL DIFF? NO
[2017-04-02 08:34] LABS: BASO # 0.04 K/mm3 (0.0-2.0); BASO % 0.3 % (0.0-3.0); EOS # 0.1 (0.0-0.7); EOS % 0.6 % (1.5-5.0); GRAN # 11.69 (1.4-6.5); GRAN % 73.7 % (50.0-68.0); HEMATOCRIT 33.5 % (36.0-48.0); LYMPH # 1.9 (1.2-3.4); MEAN CORPUSCULAR HGB CONC 32.5 g/dl (31.0-37.0); MEAN PLATELET VOLUME 10.6 fl (7.0-11.0); MONO # 2.1 (0.1-0.6); MONO % 13.4 % (1.0-6.0); PLATELET COUNT 177 10^3/uL (120.0-450.0); RED CELL DISTRIBUTION WIDTH 22.4 % (11.5-14.5); WHITE BLOOD COUNT 15.9 10^3/ul (4.5-11.0)
[2017-04-02 08:42] LABS: ALB/GLOB RATIO 1.2 (1.1-1.8); ALKALINE PHOSPHATASE 75 U/L (38-133); ALT/SGPT 23 U/L (7-56); AST/SGOT 18 U/L (15-39); BILIRUBIN,TOTAL 0.3 mg/dL (0.2-1.3); BLOOD UREA NITROGEN 4 mg/dL (7-21); CARBON DIOXIDE 22 mmol/L (21-33); CHLORIDE 101 mmol/L (95-110); GFR AFRICAN-AMERICAN > 60; GLUCOSE,RANDOM 99 mg/dL (70-110); POTASSIUM 3.5 mmol/L (3.6-5.0); SODIUM 135 mmol/L (132-148); TOTAL PROTEIN 6.6 g/dL (5.8-8.3)
--- NOTE | 2017-04-02 09:16 | CP.PCM.PN ---
<Alysha Sepulveda - Last Filed: 04/02/17 09:14> Subjective - Date & Time of Evaluation Date of Evaluation: 04/02/17 Time of Evaluation: 08:35 - Subjective Subjective: S&E at bedside this am, abdominal pain is much improved, 2/10, nausea/vomiting improved, no Zofran since last night or vomiting, tolerating ice chips. No more hematuria, the dysuria improving. No fever or chills. Still has flank pain, but improving. No acute overnight events. Ct scan A&P done w/out iv or oral contrast , increase N/V. Report reviewed. Found Hiatal hernia, No bowel obstruction,no acure findings, but limited study w/no contrast. Objective - Vital Signs/Intake and Output Vital Signs (last 24 hours): Temp Pulse Resp BP Pulse Ox 98.7 F 84 18 111/69 97 04/02/17 08:05 04/02/17 08:05 04/02/17 08:05 04/02/17 08:05 04/02/17 08:05 Intake and Output: 04/02/17 04/02/17 06:59 18:59 Intake Total 980 Balance 980 - Medications Medications: Current Medications Acetaminophen (Tylenol 325mg Tab) 650 mg PO Q6H PRN PRN Reason: Fever >100.4 F Last Admin: 04/01/17 16:13 Dose: 650 mg Famotidine (Pepcid) 20 mg IVP DAILY [facility] Last Admin: 04/01/17 13:20 Dose: 20 mg Trimethoprim/Sulfamethoxazole (617 mg/ Dextrose) 500 mls @ 250 mls/hr IVPB Q12H [facility] Last Admin: 04/02/17 03:03 Dose: 250 mls/hr Aztreonam (Azactam 2 Gm) 100 mls @ 100 mls/hr IVPB Q8 MEG PRN Reason: Protocol Last Admin: 04/02/17 05:00 Dose: 100 mls/hr Dextrose/Sodium Chloride (Dextrose 5%/0.45% Ns 1000 Ml) 1,000 mls @ 100 mls/hr IV .Q10H [facility] Last Admin: 04/01/17 21:37 Dose: 100 mls/hr Ketorolac Tromethamine (Toradol) 15 mg IVP Q6 PRN PRN Reason: Pain, moderate (4-7) Last Admin: 04/01/17 18:29 Dose: 15 mg Morphine Sulfate (Morphine) 2 mg IVP Q4H PRN PRN Reason: Pain, severe (8-10) Last Admin: 04/02/17 03:12 Dose: 2 mg Ondansetron HCl (Zofran Inj) 4 mg IVP Q6H PRN PRN Reason: Nausea/Vomiting Stop: 04/02/17 18:25 Last Admin: 04/02/17 03:12 Dose: 4 mg Pantoprazole Sodium (Protonix Inj) 40 mg IVP BID [facility] Last Admin: 04/01/17 18:26 Dose: 40 mg Sucralfate (Carafate Oral Susp) 1 gm PO 0630,1130,1630,2200 [facility] Last Admin: 04/02/17 05:54 Dose: Not Given - Labs Labs: 04/02/17 08:29 04/02/17 08:29 - Constitutional Appears: No Acute Distress - Head Exam Head Exam: NORMOCEPHALIC - Eye Exam Eye Exam: Normal appearance. absent: Scleral icterus - ENT Exam ENT Exam: Mucous Membranes Moist - Neck Exam Neck Exam: Normal Inspection - Respiratory Exam Respiratory Exam: Clear to Ausculation Bilateral, NORMAL BREATHING PATTERN. absent: Respiratory Distress - Cardiovascular Exam Cardiovascular Exam: +S1, +S2 - GI/Abdominal Exam GI & Abdominal Exam: Soft, Normal Bowel Sounds. absent: Guarding, Tenderness, Organomegaly, Rebound - Extremities Exam Extremities Exam: Normal Capillary Refill. absent: Calf Tenderness, Pedal Edema - Neurological Exam Neurological Exam: Alert, Awake, Oriented x3 - Skin Skin Exam: Dry, Warm Assessment and Plan - Assessment and Plan (Free Text) Assessment: Assessment: Improving Abdominal pain Haital Hernia Sepsis UTI, positive Escherichia coli Status post recent left ureteral stent, lithotripsy History of pyelonephritis H/O Papilary thyroid Cancer PLAN: restart clear liquid on IVF D5 1/2 NS from 50 to 100 cc/hr On IV antibiotics as per ID Zofran when necessary, see orders Protinix 40 BID Carafate QID DVT prophylaxis, scd while in bed As per urology and ID am labs: cbc/cmp Seen and discussed with Dr. Puckett. <Poppy Puckett V - Last Filed: 04/02/17 23:01> Objective - Vital Signs/Intake and Output Vital Signs (last 24 hours): Temp Pulse Resp BP Pulse Ox 99.1 F 78 18 110/72 99 04/02/17 16:30 04/02/17 16:30 04/02/17 16:30 04/02/17 16:30 04/02/17 16:30 Intake and Output: 04/02/17 04/03/17 18:59 06:59 Intake Total 1250 2300 Balance 1250 2300 - Medications Medications: Current Medications Acetaminophen (Tylenol 325mg Tab) 650 mg PO Q6H PRN PRN Reason: Fever >100.4 F Last Admin: 04/02/17 14:55 Dose: 650 mg Famotidine (Pepcid) 20 mg PO HS [facility] Dextrose/Sodium Chloride (Dextrose 5%/0.45% Ns 1000 Ml) 1,000 mls @ 100 mls/hr IV .Q10H [facility] Last Admin: 04/02/17 10:07 Dose: 100 mls/hr Trimethoprim/Sulfamethoxazole (617 mg/ Dextrose) 500 mls @ 250 mls/hr IVPB 0600 ,1800 [facility] Last Admin: 04/02/17 17:59 Dose: 250 mls/hr Ketorolac Tromethamine (Toradol) 15 mg IVP Q6 PRN PRN Reason: Pain, moderate (4-7) Last Admin: 04/02/17 17:58 Dose: 15 mg Morphine Sulfate (Morphine) 2 mg IVP Q4H PRN PRN Reason: Pain, severe (8-10) Last Admin: 04/02/17 21:24 Dose: 2 mg Pantoprazole Sodium (Protonix Ec Tab) 40 mg PO 0600,1800 [facility] Sucralfate (Carafate Oral Susp) 1 gm PO 0630,1130,1630,2200 [facility] Last Admin: 04/02/17 21:24 Dose: 1 gm - Labs Labs: 04/02/17 08:29 04/02/17 08:29 Attending/Attestation - Attestation Notes (Text): The patient was seen and examined at bedside. Medical records, lab studies, imagings were reviewed. Last 24 hours events reviewed. Agreed with the above treatment plan as outlined in Alysha Sepulveda,ELECTRICIAN ELEVATOR MAINTENANCE's notes the with the addition of the following Significant improvement of nausea vomiting. Overall feels better. Her abdominal discomfort has improved On examination abdomen soft and sided tenderness present in the left side of the abdomen Continue the antibiotics as per ID And once the diet to soft diet Thank you very much for allowing us to participate in the care of the patient
[2017-04-02] MEDS: Dextrose 5%/0.45% NS 1,000 ML IV SCH (10:07)
[2017-04-02] MEDS ORDERED: Potassium Chloride 20 mEq ER Tab PO ONE ×2 (12:03→14:14)
--- NOTE | 2017-04-02 20:28 | CP.PCM.PN ---
Subjective - Date & Time of Evaluation Date of Evaluation: 04/02/17 Time of Evaluation: 10:20 - Subjective Subjective: Feeling better, no more nausea, less flank pain, less dysuria, no fevers this morning. Objective - Vital Signs/Intake and Output Vital Signs (last 24 hours): Temp Pulse Resp BP Pulse Ox 98.7 F 102 H 20 115/77 98 04/02/17 06:00 04/01/17 17:12 04/01/17 17:12 04/01/17 17:12 04/01/17 17:12 Intake and Output: 04/01/17 04/02/17 18:59 06:59 Intake Total 980 Balance 980 - Medications Medications: Current Medications Acetaminophen (Tylenol 325mg Tab) 650 mg PO Q6H PRN PRN Reason: Fever >100.4 F Last Admin: 04/01/17 16:13 Dose: 650 mg Famotidine (Pepcid) 20 mg IVP DAILY [facility] Last Admin: 04/01/17 13:20 Dose: 20 mg Trimethoprim/Sulfamethoxazole (617 mg/ Dextrose) 500 mls @ 250 mls/hr IVPB Q12H [facility] Last Admin: 04/02/17 03:03 Dose: 250 mls/hr Aztreonam (Azactam 2 Gm) 100 mls @ 100 mls/hr IVPB Q8 MEG PRN Reason: Protocol Last Admin: 04/02/17 05:00 Dose: 100 mls/hr Dextrose/Sodium Chloride (Dextrose 5%/0.45% Ns 1000 Ml) 1,000 mls @ 100 mls/hr IV .Q10H [facility] Last Admin: 04/01/17 21:37 Dose: 100 mls/hr Ketorolac Tromethamine (Toradol) 15 mg IVP Q6 PRN PRN Reason: Pain, moderate (4-7) Last Admin: 04/01/17 18:29 Dose: 15 mg Morphine Sulfate (Morphine) 2 mg IVP Q4H PRN PRN Reason: Pain, severe (8-10) Last Admin: 04/02/17 03:12 Dose: 2 mg Ondansetron HCl (Zofran Inj) 4 mg IVP Q6H PRN PRN Reason: Nausea/Vomiting Stop: 04/02/17 18:25 Last Admin: 04/02/17 03:12 Dose: 4 mg Pantoprazole Sodium (Protonix Inj) 40 mg IVP BID [facility] Last Admin: 04/01/17 18:26 Dose: 40 mg Sucralfate (Carafate Oral Susp) 1 gm PO 0630,1130,1630,2200 [facility] Last Admin: 04/02/17 05:54 Dose: Not Given - Labs Labs: 04/01/17 06:30 - Constitutional Appears: Non-toxic, No Acute Distress - Head Exam Head Exam: NORMAL INSPECTION - ENT Exam ENT Exam: Mucous Membranes Moist - Neck Exam Neck Exam: absent: Lymphadenopathy, Meningismus - Respiratory Exam Respiratory Exam: Decreased Breath Sounds - Cardiovascular Exam Cardiovascular Exam: +S1, +S2 - GI/Abdominal Exam GI & Abdominal Exam: Soft. absent: Tenderness Assessment and Plan - Assessment and Plan (Free Text) Plan: Assessment Consider sepsis due to upper urinary tract infection, with previous urine cx (06/2017) showing ESBL-producing E. coli in this patient with anaphylactic reaction to amoxicillin and Latex nephrolithiasis S/P stenting on the right and lithotripsy history of pyelonephritis obesity with BMI 30 Plan We are unable to give Amikacin (preparation has materials similar to latex) and hesitant to use Merrem (amoxicillin allergy) - continue Bactrim (day 2) pending identification of the gram negative bacill in the urine cx on this admission follow up Urology evaluation and recommendations will continue to monitor clinically
[2017-04-03] MEDS: Dextrose 5%/0.45% NS 1,000 ML IV SCH (03:05)
[2017-04-03] MEDS: Pantoprazole 40 mg EC Tab PO SCH ×2 (06:28→17:20)
[2017-04-03] MEDS: TRIMETHOPRIM IVPB SCH ×2 (06:28→17:22)
[2017-04-03] MEDS: DEXTROSE 5% IVPB SCH ×2 (06:28→17:22)
[2017-04-03] MEDS: Sucralfate 1 gm/10 ml Oral Susp UD PO SCH ×4 (06:28→22:09)
[2017-04-03] MEDS: SULFAMETHOXAZOLE IVPB SCH ×2 (06:28→17:22)
[2017-04-03] MEDS: WATER IVPB SCH ×2 (06:28→17:22)
[2017-04-03] MEDS: Morphine 2 mg/ml ISec IVP PRN ×3 (09:47→22:57)
--- NOTE | 2017-04-03 14:12 | US ---
PROCEDURE: Ultrasound of the Kidneys HISTORY: Nausea abd pain COMPARISON: None available. TECHNIQUE: Sonogram of the kidneys. FINDINGS: RIGHT KIDNEY: Measures: 11.0 cm. Normal in size, contour and echogenicity. No stone, solid mass lesion or hydronephrosis visualized. LEFT KIDNEY: Measures: 13.6 cm. Normal in size, contour and echogenicity. No stone, solid mass lesion or hydronephrosis visualized. Left ureteral stent noted. OTHER FINDINGS: None. IMPRESSION: Left ureteral stent. Otherwise unremarkable. No hydronephrosis.
--- NOTE | 2017-04-03 14:13 | US ---
PROCEDURE: Ultrasound of urinary bladder HISTORY: Nausea ABD pain COMPARISON: Not available TECHNIQUE: Transabdominal FINDINGS: The distended urinary bladder measures 94.7 cc. This is poorly distended. Bladder wall thickness cannot be adequately evaluated. There is no intraluminal mass. A ureteral stent is noted. Neither the right nor the left ureteral jet was evident. Postvoid residual volume is 6 cc. IMPRESSION: No significant postvoid residual.
[2017-04-03] MEDS ORDERED: LEVOTHYROXINE SODIUM 300 MCG PO SCH (14:15)
--- NOTE | 2017-04-03 14:22 | RAD ---
HISTORY: Abd pain nausea COMPARISON: No prior. FINDINGS: BOWEL: Normal. No obstruction. No free air. Left ureteral stent. 6 mm calculus projects over left kidney. No other significant abnormal calcification identified. BONES: Normal. OTHER FINDINGS: None. IMPRESSION: Probable 6 mm left renal calculus. Left ureteral stent noted.
--- NOTE | 2017-04-03 22:17 | PN ---
DATE: 04/03/2017 SUBJECTIVE: The patient is in bed in no acute distress, nontoxic. PHYSICAL EXAMINATION: VITAL SIGNS: Temperature is 98, blood pressure is 107/60, and respiratory rate 18. HEENT: Unremarkable. NECK: Supple. LUNGS: Decreased breath sounds. HEART: Normal S1 and S2. ABDOMEN: Soft and nontender. No rebound or guarding. LABORATORY DATA: Reveals a white count of 15,000, hemoglobin of 10, platelets 177. BUN of 4, creatinine of 0.7. Urinalysis is noted and microbiology reveals ESBL E. coli sensitive to Bactrim and nitrofurantoin. Renal ultrasound, left ureteral stent is noted. No hydronephrosis. ASSESSMENT AND PLAN: A 26-year-old with sepsis with extended-spectrum beta-lactamases producing Escherichia coli in a patient with anaphylactic reaction from amoxicillin and latex, nephrolithiasis, status post stenting in the right and lithotripsy, history of pyelonephritis on Bactrim, tolerating the day #3 of Bactrim, tolerating the medications with extended-spectrum beta-lactamases Escherichia coli. Since the patient has reaction to Latex, unable to give Amikacin. Limited options, as far as this patient's antibiotic choices are concerned. We will follow with you. Review of orders. Bactrim is active. The patient appears to be improving, she states. We will follow. Mayco Pate MD
[2017-04-04] MEDS: WATER IVPB SCH ×2 (05:47→18:22)
[2017-04-04] MEDS: TRIMETHOPRIM IVPB SCH ×2 (05:47→18:22)
[2017-04-04] MEDS: SULFAMETHOXAZOLE IVPB SCH ×2 (05:47→18:22)
[2017-04-04] MEDS: DEXTROSE 5% IVPB SCH ×2 (05:47→18:22)
[2017-04-04] MEDS: Pantoprazole 40 mg EC Tab PO SCH ×2 (05:48→18:22)
[2017-04-04] MEDS: Sucralfate 1 gm/10 ml Oral Susp UD PO SCH ×4 (05:48→22:13)
[2017-04-04] MEDS: Morphine 2 mg/ml ISec IVP PRN (07:47)
[2017-04-04] MEDS: Levothyroxine 100 MCG TAB PO SCH (09:53)
[2017-04-04 12:11] LABS: BASO # 0.08 K/mm3 (0.0-2.0); EOS # 0.2 (0.0-0.7); EOS % 3.1 % (1.5-5.0); GRAN # 5.01 (1.4-6.5); GRAN % 64.2 % (50.0-68.0); HEMATOCRIT 35.8 % (36.0-48.0); LYMPH # 1.9 (1.2-3.4); LYMPH % 24.6 % (22.0-35.0); MEAN PLATELET VOLUME 10.7 fl (7.0-11.0); MONO # 0.6 (0.1-0.6); MONO % 7.1 % (1.0-6.0); RED CELL DISTRIBUTION WIDTH 22.3 % (11.5-14.5); WHITE BLOOD COUNT 7.8 10^3/ul (4.5-11.0)
[2017-04-04 12:19] LABS: ALB/GLOB RATIO 1.2 (1.1-1.8); ALKALINE PHOSPHATASE 73 U/L (38-133); ALT/SGPT 20 U/L (7-56); AST/SGOT 26 U/L (15-39); BILIRUBIN,TOTAL 0.4 mg/dL (0.2-1.3); BLOOD UREA NITROGEN 4 mg/dL (7-21); CALCIUM 9.1 mg/dL (8.4-10.5); CARBON DIOXIDE 23 mmol/L (21-33); CHLORIDE 103 mmol/L (98-107); GFR AFRICAN-AMERICAN > 60; GLUCOSE,RANDOM 89 mg/dL (70-110); MAGNESIUM 2.2 mg/dL (1.7-2.2); POTASSIUM 3.9 mmol/L (3.6-5.0); SODIUM 139 mmol/L (132-148); TOTAL PROTEIN 7.4 g/dL (5.8-8.3)
--- NOTE | 2017-04-04 18:55 | PN ---
SUBJECTIVE: The patient is seen earlier this morning at room #369, bed 1. The patient states she is slowly improving. No fevers or chills. PHYSICAL EXAMINATION: VITAL SIGNS: Temperature is 98, blood pressure is 100/60, respiratory rate of 16. HEENT: Unremarkable. NECK: Supple. LUNGS: Have decreased breath sound. HEART: Normal S1, S2. ABDOMEN: Soft and nontender. LABORATORY DATA: Reveals a white count of 7.8, hemoglobin of 11, and platelets of 269. BUN of 4, creatinine of 0.7. Urinalysis is noted. Microbiology is noted, whether it is E. coli ESBL. ASSESSMENT AND PLAN: This is a 26-year-old female with sepsis and extended-spectrum beta-lactamase producing Escherichia coli in a patient with anaphylactic reaction from amoxicillin, malaise, nephrolithiasis, status post stenting in the right and lithotripsy, history of pyelonephritis, currently on Bactrim day #4, extended-spectrum beta-lactamase Escherichia coli. The patient's white count is improved, it is down to 7.8 today and creatinine is steady at 0.7. Overall, the patient is improving. The patient's fever is also has been subsided. Mayco Pate MD
--- NOTE | 2017-04-04 22:16 | PCM.URO ---
Urology Progress Note - Objective Lab Results Last 24 Hours: Laboratory Results - last 24 hr 04/04/17 04/04/17 12:03 12:03 WBC 7.8 D RBC 4.53 Hgb 11.8 L Hct 35.8 L MCV 79.0 L MCH 26.0 MCHC 33.0 RDW 22.3 H Plt Count 269 MPV 10.7 Gran % 64.2 Lymph % (Auto) 24.6 Patrick % (Auto) 7.1 H Eos % (Auto) 3.1 Baso % (Auto) 1.0 Gran # 5.01 Lymph # 1.9 Patrick # 0.6 Eos # 0.2 Baso # 0.08 Sodium 139 Potassium 3.9 Chloride 103 Carbon Dioxide 23 Anion Gap 17 BUN 4 L Creatinine 0.7 Est GFR ( Amer) > 60 Est GFR (Non-Af Amer) > 60 Random Glucose 89 Calcium 9.1 Magnesium 2.2 Total Bilirubin 0.4 AST 26 ALT 20 Alkaline Phosphatase 73 Total Protein 7.4 Albumin 4.1 Globulin 3.3 Albumin/Globulin Ratio 1.2 Intake & Output: Intake & Output 04/04/17 04/04/17 04/05/17 06:59 18:59 06:59 Intake Total 900 420 Balance 900 420 Intake: Oral 900 420 Other: # Voids Urine, Voided 2 4 # Bowel Movements 0 1 Vital Signs: Vital Signs - 24 hr 04/04/17 06:00 Temperature 97.9 F Pulse Rate 56 L Respiratory 18 Rate Blood Pressure 91/46 L O2 Sat by Pulse 98 Oximetry
[2017-04-05] MEDS: DEXTROSE 5% IVPB SCH ×2 (06:02→17:08)
[2017-04-05] MEDS: WATER IVPB SCH ×2 (06:02→17:08)
[2017-04-05] MEDS: TRIMETHOPRIM IVPB SCH ×2 (06:02→17:08)
[2017-04-05] MEDS: SULFAMETHOXAZOLE IVPB SCH ×2 (06:02→17:08)
[2017-04-05] MEDS: Sucralfate 1 gm/10 ml Oral Susp UD PO SCH ×4 (06:03→21:11)
[2017-04-05] MEDS: Pantoprazole 40 mg EC Tab PO SCH ×2 (06:07→17:09)
--- NOTE | 2017-04-05 06:49 | CP.PCM.PN ---
Subjective - Date & Time of Evaluation Date of Evaluation: 04/04/17 Time of Evaluation: 12:30 - Subjective Subjective: this patient had the few episodes of vomiting today. Was eating only small amount of food. Abdominal pain is better. Repeat labs were Ordered at the time of examination Objective - Vital Signs/Intake and Output Vital Signs (last 24 hours): Temp Pulse Resp BP Pulse Ox 97.9 F 56 L 18 91/46 L 98 04/04/17 06:00 04/04/17 06:00 04/04/17 06:00 04/04/17 06:00 04/04/17 06:00 Intake and Output: 04/04/17 04/05/17 18:59 06:59 Intake Total 420 Balance 420 - Medications Medications: Current Medications Acetaminophen (Tylenol 325mg Tab) 650 mg PO Q6H PRN PRN Reason: Fever >100.4 F Last Admin: 04/02/17 14:55 Dose: 650 mg Dextrose/Sodium Chloride (Dextrose 5%/0.45% Ns 1000 Ml) 1,000 mls @ 100 mls/hr IV .Q10H [facility] Last Admin: 04/03/17 03:05 Dose: 100 mls/hr Trimethoprim/Sulfamethoxazole (617 mg/ Dextrose) 500 mls @ 250 mls/hr IVPB 0600 ,1800 [facility] Last Admin: 04/04/17 18:22 Dose: 250 mls/hr Ketorolac Tromethamine (Toradol) 15 mg IVP Q6 PRN PRN Reason: Pain, moderate (4-7) Last Admin: 04/04/17 18:42 Dose: 15 mg Levothyroxine Sodium (Synthroid) 300 mcg PO ACB [facility] Last Admin: 04/04/17 09:53 Dose: 300 mcg Morphine Sulfate (Morphine) 2 mg IVP Q4H PRN PRN Reason: Pain, severe (8-10) Last Admin: 04/04/17 07:47 Dose: 2 mg Ondansetron HCl (Zofran Inj) 4 mg IVP Q4H PRN PRN Reason: Nausea/Vomiting Last Admin: 04/04/17 07:20 Dose: 4 mg Pantoprazole Sodium (Protonix Ec Tab) 40 mg PO 0600,1800 [facility] Last Admin: 04/04/17 18:22 Dose: 40 mg Sucralfate (Carafate Oral Susp) 1 gm PO 0630,1130,1630,2200 [facility] Last Admin: 04/04/17 22:13 Dose: Not Given - Labs Labs: 04/04/17 12:03 04/04/17 12:03 - Constitutional Appears: Non-toxic, No Acute Distress - Head Exam Head Exam: ATRAUMATIC, NORMOCEPHALIC - Eye Exam Eye Exam: EOMI, PERRL. absent: Scleral icterus - ENT Exam ENT Exam: Mucous Membranes Moist Additional comments: thyroid surgery scar seen - Neck Exam Neck Exam: Full ROM Additional comments: previous thyroid surgery scar seen - Respiratory Exam Respiratory Exam: Clear to Ausculation Bilateral. absent: Rales, Rhonchi - Cardiovascular Exam Cardiovascular Exam: +S1, +S2. absent: JVD - GI/Abdominal Exam GI & Abdominal Exam: Soft Additional comments: mild tenderness left flank area. No rebound or guarding - Extremities Exam Extremities Exam: Full ROM. absent: Calf Tenderness - Back Exam Back Exam: CVA tenderness (L) - Neurological Exam Neurological Exam: Alert, Awake, Oriented x3 - Psychiatric Exam Psychiatric exam: Normal Affect - Skin Skin Exam: Dry, Intact Assessment and Plan - Assessment and Plan (Free Text) Assessment: p
--- NOTE | 2017-04-05 06:51 | CP.PCM.PN ---
Subjective - Date & Time of Evaluation Date of Evaluation: 04/03/17 - Subjective Subjective: feeling much better and tolerating the diet well Objective - Vital Signs/Intake and Output Vital Signs (last 24 hours): Temp Pulse Resp BP Pulse Ox 99.1 F 74 19 108/65 98 04/03/17 19:10 04/03/17 19:10 04/03/17 19:10 04/03/17 19:10 04/03/17 19:10 Intake and Output: 04/03/17 04/04/17 18:59 06:59 Intake Total 1992 780 Balance 1992 780 - Medications Medications: Current Medications Acetaminophen (Tylenol 325mg Tab) 650 mg PO Q6H PRN PRN Reason: Fever >100.4 F Last Admin: 04/02/17 14:55 Dose: 650 mg Famotidine (Pepcid) 20 mg PO HS [facility] Last Admin: 04/03/17 22:09 Dose: 20 mg Dextrose/Sodium Chloride (Dextrose 5%/0.45% Ns 1000 Ml) 1,000 mls @ 100 mls/hr IV .Q10H [facility] Last Admin: 04/03/17 03:05 Dose: 100 mls/hr Trimethoprim/Sulfamethoxazole (617 mg/ Dextrose) 500 mls @ 250 mls/hr IVPB 0600 ,1800 [facility] Last Admin: 04/03/17 17:22 Dose: 250 mls/hr Ketorolac Tromethamine (Toradol) 15 mg IVP Q6 PRN PRN Reason: Pain, moderate (4-7) Last Admin: 04/03/17 03:04 Dose: 15 mg Levothyroxine Sodium (Synthroid) 300 mcg PO ACB [facility] Morphine Sulfate (Morphine) 2 mg IVP Q4H PRN PRN Reason: Pain, severe (8-10) Last Admin: 04/03/17 22:57 Dose: 2 mg Ondansetron HCl (Zofran Inj) 4 mg IVP Q4H PRN PRN Reason: Nausea/Vomiting Last Admin: 04/03/17 19:07 Dose: 4 mg Pantoprazole Sodium (Protonix Ec Tab) 40 mg PO 0600,1800 [facility] Last Admin: 04/03/17 17:20 Dose: 40 mg Sucralfate (Carafate Oral Susp) 1 gm PO 0630,1130,1630,2200 [facility] Last Admin: 04/03/17 22:09 Dose: 1 gm - Labs Labs: 04/02/17 08:29 04/02/17 08:29 - Constitutional Appears: Non-toxic, No Acute Distress - Head Exam Head Exam: ATRAUMATIC, NORMOCEPHALIC - Eye Exam Eye Exam: EOMI, PERRL - ENT Exam ENT Exam: Mucous Membranes Moist - Neck Exam Neck Exam: Full ROM Additional comments: previous Figueroa's surgery scar seen - Respiratory Exam Respiratory Exam: Clear to Ausculation Bilateral, NORMAL BREATHING PATTERN. absent: Rales, Rhonchi - Cardiovascular Exam Cardiovascular Exam: REGULAR RHYTHM, +S1, +S2 - GI/Abdominal Exam GI & Abdominal Exam: Soft, Tenderness, Normal Bowel Sounds Additional comments: left flank tenderness present - Extremities Exam Extremities Exam: Full ROM. absent: Calf Tenderness - Back Exam Back Exam: CVA tenderness (L) - Neurological Exam Neurological Exam: Alert, Awake, Oriented x3 - Psychiatric Exam Psychiatric exam: Normal Affect - Skin Skin Exam: Dry, Intact Assessment and Plan - Assessment and Plan (Free Text) Assessment: Consider sepsis due to upper urinary tract infection, with previous urine cx (06/2017) showing ESBL-producing E. coli in this patient with anaphylactic reaction to amoxicillin and Latex nephrolithiasis S/P stenting nausea vomiting improving WBCs showing downward trend. Potassium supplemented continue IV hydration. Advance the diet
[2017-04-05] MEDS: Levothyroxine 100 MCG TAB PO SCH (09:10)
[2017-04-05] MEDS: Morphine 2 mg/ml ISec IVP PRN (12:29)
--- NOTE | 2017-04-05 13:48 | CP.PCM.PN ---
Subjective - Date & Time of Evaluation Date of Evaluation: 04/05/17 Time of Evaluation: 11:00 - Subjective Subjective: Patient is feeling better, no fevers overnight, not in distress, less nausea, no abdominal or flank pain. No more dysuria. Objective - Vital Signs/Intake and Output Vital Signs (last 24 hours): Temp Pulse Resp BP Pulse Ox 98.8 F 72 20 108/69 98 04/05/17 08:30 04/05/17 08:30 04/05/17 08:30 04/05/17 08:30 04/05/17 08:30 Intake and Output: 04/05/17 04/05/17 06:59 18:59 Intake Total 420 Balance 420 - Medications Medications: Current Medications Acetaminophen (Tylenol 325mg Tab) 650 mg PO Q6H PRN PRN Reason: Fever >100.4 F Last Admin: 04/02/17 14:55 Dose: 650 mg Dextrose/Sodium Chloride (Dextrose 5%/0.45% Ns 1000 Ml) 1,000 mls @ 100 mls/hr IV .Q10H [facility] [place] Last Admin: 04/03/17 03:05 Dose: 100 mls/hr Trimethoprim/Sulfamethoxazole (617 mg/ Dextrose) 500 mls @ 250 mls/hr IVPB 0600 ,1800 [facility] Last Admin: 04/05/17 06:02 Dose: 250 mls/hr Ketorolac Tromethamine (Toradol) 15 mg IVP Q6 PRN PRN Reason: Pain, moderate (4-7) Last Admin: 04/05/17 02:10 Dose: 15 mg Levothyroxine Sodium (Synthroid) 300 mcg PO ACB [facility] [place] Last Admin: 04/04/17 09:53 Dose: 300 mcg Morphine Sulfate (Morphine) 2 mg IVP Q4H PRN PRN Reason: Pain, severe (8-10) Last Admin: 04/04/17 07:47 Dose: 2 mg Ondansetron HCl (Zofran Inj) 4 mg IVP Q4H PRN PRN Reason: Nausea/Vomiting Last Admin: 04/05/17 00:40 Dose: 4 mg Pantoprazole Sodium (Protonix Ec Tab) 40 mg PO 0600,1800 [facility] [place] Last Admin: 04/05/17 06:07 Dose: 40 mg Sucralfate (Carafate Oral Susp) 1 gm PO 0630,1130,1630,2200 [facility] Last Admin: 04/05/17 06:03 Dose: Not Given - Labs Labs: 04/04/17 12:03 04/04/17 12:03 - Constitutional Appears: Non-toxic, No Acute Distress - Head Exam Head Exam: NORMAL INSPECTION - ENT Exam ENT Exam: Mucous Membranes Moist - Neck Exam Neck Exam: absent: Meningismus - Respiratory Exam Respiratory Exam: Decreased Breath Sounds - Cardiovascular Exam Cardiovascular Exam: +S1, +S2 - GI/Abdominal Exam GI & Abdominal Exam: Soft. absent: Tenderness Assessment and Plan - Assessment and Plan (Free Text) Plan: Assessment sepsis due to upper urinary tract infection, with ESBL-producing E. coli in this patient with anaphylactic reaction to amoxicillin and Latex, clinically improving nephrolithiasis S/P stenting on the right and lithotripsy history of pyelonephritis obesity with BMI 30 Plan We are unable to give Amikacin (preparation has materials similar to latex) and hesitant to use Merrem (amoxicillin allergy) - continue Bactrim (day 6) - recommend 10-14 days of the antibiotics follow up further Urology evaluation and recommendations will continue to monitor clinically
--- NOTE | 2017-04-05 16:48 | PCM.URO ---
Urology Progress Note - Objective Intake & Output: Intake & Output 04/04/17 04/05/17 04/05/17 18:59 06:59 18:59 Intake Total 420 600 Output Total 200 Balance 420 400 Intake: Oral 420 600 Output: Oral Regurgitation 200 Other: # Voids Urine, Voided 4 2 # Bowel Movements 1 Vital Signs: Vital Signs - 24 hr 04/05/17 08:30 Temperature 98.8 F Pulse Rate 72 Respiratory 20 Rate Blood Pressure 108/69 O2 Sat by Pulse 98 Oximetry
[2017-04-05] MEDS: Dextrose 5%/0.45% NS 1,000 ML IV SCH ×2 (17:09→21:10)
[2017-04-06] MEDS: TRIMETHOPRIM IVPB SCH ×2 (05:45→17:02)
[2017-04-06] MEDS: SULFAMETHOXAZOLE IVPB SCH ×2 (05:45→17:02)
[2017-04-06] MEDS: DEXTROSE 5% IVPB SCH ×2 (05:45→17:02)
[2017-04-06] MEDS: WATER IVPB SCH ×2 (05:45→17:02)
[2017-04-06] MEDS: Dextrose 5%/0.45% NS 1,000 ML IV SCH ×3 (05:45→21:39)
[2017-04-06] MEDS: Pantoprazole 40 mg EC Tab PO SCH ×2 (05:46→17:02)
[2017-04-06] MEDS: Sucralfate 1 gm/10 ml Oral Susp UD PO SCH ×4 (05:46→21:38)
[2017-04-06] MEDS: Levothyroxine 100 MCG TAB PO SCH (07:51)
--- NOTE | 2017-04-06 12:43 | CP.PCM.PN ---
Subjective - Date & Time of Evaluation Date of Evaluation: 04/06/17 Time of Evaluation: 10:30 - Subjective Subjective: Comfortable, less nausea, no fevers, starting to eat better. Objective - Vital Signs/Intake and Output Vital Signs (last 24 hours): Temp Pulse Resp BP Pulse Ox 98.7 F 50 L 18 104/64 97 04/06/17 08:55 04/06/17 08:55 04/06/17 08:55 04/06/17 08:55 04/06/17 08:55 Intake and Output: 04/06/17 04/06/17 06:59 18:59 Intake Total 3700 Balance 3700 - Medications Medications: Current Medications Acetaminophen (Tylenol 325mg Tab) 650 mg PO Q6H PRN PRN Reason: Fever >100.4 F Last Admin: 04/05/17 23:58 Dose: 650 mg Dextrose/Sodium Chloride (Dextrose 5%/0.45% Ns 1000 Ml) 1,000 mls @ 100 mls/hr IV .Q10H [facility] Last Admin: 04/06/17 05:45 Dose: 100 mls/hr Trimethoprim/Sulfamethoxazole (617 mg/ Dextrose) 500 mls @ 250 mls/hr IVPB 0600 ,1800 [facility] Last Admin: 04/06/17 05:45 Dose: 250 mls/hr Ketorolac Tromethamine (Toradol) 15 mg IVP Q6 PRN PRN Reason: Pain, moderate (4-7) Last Admin: 04/05/17 17:09 Dose: 15 mg Levothyroxine Sodium (Synthroid) 300 mcg PO ACB [facility] Last Admin: 04/06/17 07:51 Dose: Not Given Ondansetron HCl (Zofran Inj) 4 mg IVP Q4H PRN PRN Reason: Nausea/Vomiting Last Admin: 04/06/17 07:23 Dose: 4 mg Pantoprazole Sodium (Protonix Ec Tab) 40 mg PO 0600,1800 [facility] Last Admin: 04/06/17 05:46 Dose: 40 mg Sucralfate (Carafate Oral Susp) 1 gm PO 0630,1130,1630,2200 [facility] Last Admin: 04/06/17 05:46 Dose: Not Given - Labs Labs: 04/04/17 12:03 04/04/17 12:03 - Constitutional Appears: Non-toxic, No Acute Distress - Head Exam Head Exam: NORMAL INSPECTION - ENT Exam ENT Exam: Mucous Membranes Moist - Neck Exam Neck Exam: absent: Meningismus - Respiratory Exam Respiratory Exam: Decreased Breath Sounds - Cardiovascular Exam Cardiovascular Exam: +S1, +S2 - GI/Abdominal Exam GI & Abdominal Exam: Soft. absent: Tenderness Assessment and Plan - Assessment and Plan (Free Text) Plan: Assessment sepsis due to upper urinary tract infection, with ESBL-producing E. coli in this patient with anaphylactic reaction to amoxicillin and Latex, clinically improving nephrolithiasis S/P stenting on the right and lithotripsy history of pyelonephritis obesity with BMI 30 Plan We are unable to give Amikacin (preparation has materials similar to latex) and hesitant to use Merrem (amoxicillin allergy) - continue Bactrim (day 7) - recommend 10-14 days of the antibiotics follow up further Urology evaluation and recommendations will continue to monitor clinically
[2017-04-06] MEDS ORDERED: Magnesium Citrate Oral SOL (300 ml) PO ONE (17:52)
[2017-04-06] MEDS ORDERED: Magnesium Hydroxide Susp 30 ml UD PO ONE (21:03)
[2017-04-06] MEDS ORDERED: Bisacodyl 5mg EC Tab PO ONE (21:16)
--- NOTE | 2017-04-06 23:48 | CP.PCM.PN ---
Subjective - Date & Time of Evaluation Date of Evaluation: 04/05/17 Time of Evaluation: 10:00 - Subjective Subjective: still has some apical nausea and episode of vomiting. Objective - Vital Signs/Intake and Output Vital Signs (last 24 hours): Temp Pulse Resp BP Pulse Ox 98.2 F 60 18 119/74 98 04/05/17 16:00 04/05/17 16:00 04/05/17 16:00 04/05/17 16:00 04/05/17 16:00 Intake and Output: 04/05/17 04/06/17 18:59 06:59 Intake Total 600 960 Output Total 200 Balance 400 960 - Medications Medications: Current Medications Acetaminophen (Tylenol 325mg Tab) 650 mg PO Q6H PRN PRN Reason: Fever >100.4 F Last Admin: 04/05/17 23:58 Dose: 650 mg Dextrose/Sodium Chloride (Dextrose 5%/0.45% Ns 1000 Ml) 1,000 mls @ 100 mls/hr IV .Q10H [facility] Last Admin: 04/05/17 21:10 Dose: Not Given Trimethoprim/Sulfamethoxazole (617 mg/ Dextrose) 500 mls @ 250 mls/hr IVPB 0600 ,1800 [facility] Last Admin: 04/05/17 17:08 Dose: 250 mls/hr Ketorolac Tromethamine (Toradol) 15 mg IVP Q6 PRN PRN Reason: Pain, moderate (4-7) Last Admin: 04/05/17 17:09 Dose: 15 mg Levothyroxine Sodium (Synthroid) 300 mcg PO ACB [facility] Last Admin: 04/05/17 09:10 Dose: 300 mcg Ondansetron HCl (Zofran Inj) 4 mg IVP Q4H PRN PRN Reason: Nausea/Vomiting Last Admin: 04/05/17 17:10 Dose: 4 mg Pantoprazole Sodium (Protonix Ec Tab) 40 mg PO 0600,1800 [facility] Last Admin: 04/05/17 17:09 Dose: 40 mg Sucralfate (Carafate Oral Susp) 1 gm PO 0630,1130,1630,2200 [facility] Last Admin: 04/05/17 21:11 Dose: Not Given - Labs Labs: 04/04/17 12:03 04/04/17 12:03 - Constitutional Appears: Non-toxic - Head Exam Head Exam: ATRAUMATIC, NORMOCEPHALIC - Eye Exam Eye Exam: EOMI, PERRL - ENT Exam ENT Exam: Mucous Membranes Moist, Normal Exam Additional comments: previous that thyroid surgery scar was seen - Neck Exam Neck Exam: Full ROM. absent: Lymphadenopathy - Respiratory Exam Respiratory Exam: Clear to Ausculation Bilateral. absent: Rales, Rhonchi - Cardiovascular Exam Cardiovascular Exam: REGULAR RHYTHM, +S1, +S2. absent: JVD - GI/Abdominal Exam GI & Abdominal Exam: Soft, Tenderness. absent: Mass - Extremities Exam Extremities Exam: Calf Tenderness, Normal Inspection - Neurological Exam Neurological Exam: Alert, Awake, Oriented x3 - Psychiatric Exam Psychiatric exam: Normal Affect - Skin Skin Exam: Dry, Intact Assessment and Plan - Assessment and Plan (Free Text) Assessment: this 26-year-old patient that his sepsis secondary ESBL UTI. Patient has episodes of nausea vomiting improving white cell count has improved Continue the IV antibiotics as per ID continue hydration Follow-up electrolytes continue PPI and Carafate
--- NOTE | 2017-04-07 03:37 | PN ---
DATE: 04/06/2017 SUBJECTIVE: This patient was seen and evaluated earlier. The patient is tolerating the diet per her and episode of nausea and vomiting. The patient complains of constipation, did not move her bowels for more than 5 days. PHYSICAL EXAMINATION: GENERAL: The patient is afebrile. VITAL SIGNS: Blood pressure 122/82, pulse 67, respirations 20, and O2 saturation is 97%. HEENT: Atraumatic, anicteric. NECK: Supple. Surgery scar present. HEART: S1 and S2 heard. LUNGS: Bilateral air entry present. ABDOMEN: Soft, no tenderness. EXTREMITIES: No edema. No cyanosis. NEUROLOGIC: Alert and oriented. Moves all the extremities. LABORATORY DATA: No recent labs today. IMPRESSION: This is a 26-year-old patient admitted with sepsis secondary to the urinary tract infection, extended-spectrum beta-lactamase, Escherichia coli. The patient is on antibiotics, Bactrim. Nephrolithiasis, status post stent. Episode of nausea and vomiting improving. The patient still on IV fluids. We will check the electrolyte labs tomorrow then consider discontinuing it. Continue to have the patient's p.o. intake remaining good. Complains of constipation, we will start the patient on laxatives. Tried a packet of magnesia, the patient could not tolerate. We will give the patient Dulcolax tablet. Thank you very much for allowing me to participate in the care of the patient. Poppy Puckett MD
[2017-04-07 06:49] LABS: ALB/GLOB RATIO 1.2 (1.1-1.8); ALKALINE PHOSPHATASE 59 U/L (38-133); ALT/SGPT 23 U/L (7-56); AST/SGOT 22 U/L (15-39); BILIRUBIN,TOTAL 0.1 mg/dL (0.2-1.3); BLOOD UREA NITROGEN 6 mg/dL (7-21); CALCIUM 8.4 mg/dL (8.4-10.5); CARBON DIOXIDE 22 mmol/L (21-33); CHLORIDE 105 mmol/L (98-107); GFR AFRICAN-AMERICAN > 60; GLUCOSE,RANDOM 85 mg/dL (70-110); POTASSIUM 3.8 mmol/L (3.6-5.0); SODIUM 139 mmol/L (132-148); TOTAL PROTEIN 6.7 g/dL (5.8-8.3)
[2017-04-07 06:52] LABS: HEMATOCRIT 32.7 % (36.0-48.0); MEAN CORPUSCULAR HEMOGLOBIN 25.3 pg (25.0-35.0); MEAN CORPUSCULAR HGB CONC 32.4 g/dl (31.0-37.0); RED CELL DISTRIBUTION WIDTH 22.2 % (11.5-14.5); WHITE BLOOD COUNT 7.9 10^3/ul (4.5-11.0)
[2017-04-07] MEDS: SULFAMETHOXAZOLE IVPB SCH ×2 (06:52→17:06)
[2017-04-07] MEDS: TRIMETHOPRIM IVPB SCH ×2 (06:52→17:06)
[2017-04-07] MEDS: DEXTROSE 5% IVPB SCH ×2 (06:52→17:06)
[2017-04-07] MEDS: WATER IVPB SCH ×2 (06:52→17:06)
[2017-04-07] MEDS: Sucralfate 1 gm/10 ml Oral Susp UD PO SCH ×4 (06:52→21:05)
[2017-04-07] MEDS: Dextrose 5%/0.45% NS 1,000 ML IV SCH (06:54)
[2017-04-07] MEDS: Pantoprazole 40 mg EC Tab PO SCH ×2 (06:59→17:06)
[2017-04-07] MEDS: Levothyroxine 100 MCG TAB PO SCH (07:36)
--- NOTE | 2017-04-07 14:37 | CP.PCM.PN ---
Subjective - Date & Time of Evaluation Date of Evaluation: 04/07/17 Time of Evaluation: 10:30 - Subjective Subjective: Comfortable in bed, improved nausea, no fevers overnight, not in distress. Objective - Vital Signs/Intake and Output Vital Signs (last 24 hours): Temp Pulse Resp BP Pulse Ox 98.9 F 67 20 122/82 97 04/06/17 16:00 04/06/17 16:00 04/06/17 16:00 04/06/17 16:00 04/06/17 16:00 Intake and Output: 04/07/17 04/07/17 06:59 18:59 Intake Total 2920 480 Output Total 1 Balance 2919 480 - Medications Medications: Current Medications Acetaminophen (Tylenol 325mg Tab) 650 mg PO Q6H PRN PRN Reason: Fever >100.4 F Last Admin: 04/05/17 23:58 Dose: 650 mg Dextrose/Sodium Chloride (Dextrose 5%/0.45% Ns 1000 Ml) 1,000 mls @ 100 mls/hr IV .Q10H [facility] Last Admin: 04/07/17 06:54 Dose: 100 mls/hr Trimethoprim/Sulfamethoxazole (617 mg/ Dextrose) 500 mls @ 250 mls/hr IVPB 0600 ,1800 [facility] Last Admin: 04/07/17 06:52 Dose: 250 mls/hr Ketorolac Tromethamine (Toradol) 15 mg IVP Q6 PRN PRN Reason: Pain, moderate (4-7) Last Admin: 04/06/17 13:55 Dose: 15 mg Levothyroxine Sodium (Synthroid) 300 mcg PO ACB [facility] Last Admin: 04/06/17 07:51 Dose: Not Given Ondansetron HCl (Zofran Inj) 4 mg IVP Q4H PRN PRN Reason: Nausea/Vomiting Last Admin: 04/06/17 18:42 Dose: 4 mg Pantoprazole Sodium (Protonix Ec Tab) 40 mg PO 0600,1800 [facility] Last Admin: 04/07/17 06:59 Dose: Not Given Sucralfate (Carafate Oral Susp) 1 gm PO 0630,1130,1630,2200 [facility] Last Admin: 04/07/17 06:52 Dose: Not Given - Labs Labs: 04/04/17 12:03 08/23/17 05:30 - Constitutional Appears: Non-toxic, No Acute Distress - Head Exam Head Exam: NORMAL INSPECTION - ENT Exam ENT Exam: Mucous Membranes Moist - Neck Exam Neck Exam: absent: Meningismus - Respiratory Exam Respiratory Exam: Decreased Breath Sounds - Cardiovascular Exam Cardiovascular Exam: +S1, +S2 - GI/Abdominal Exam GI & Abdominal Exam: Soft. absent: Tenderness Assessment and Plan - Assessment and Plan (Free Text) Plan: Assessment sepsis due to upper urinary tract infection, with ESBL-producing E. coli in this patient with anaphylactic reaction to amoxicillin and Latex, clinically improving nephrolithiasis S/P stenting on the right and lithotripsy history of pyelonephritis obesity with BMI 30 Plan We are unable to give Amikacin (preparation has materials similar to latex) and hesitant to use Merrem (amoxicillin allergy) - continue Bactrim (day 8) - recommend 10-14 days of the antibiotics follow up further Urology evaluation and recommendations will continue to follow clinically
[2017-04-08] MEDS: Sucralfate 1 gm/10 ml Oral Susp UD PO SCH ×4 (05:39→22:22)
[2017-04-08] MEDS: DEXTROSE 5% IVPB SCH ×2 (05:53→18:25)
[2017-04-08] MEDS: SULFAMETHOXAZOLE IVPB SCH ×2 (05:53→18:25)
[2017-04-08] MEDS: TRIMETHOPRIM IVPB SCH ×2 (05:53→18:25)
[2017-04-08] MEDS: WATER IVPB SCH ×2 (05:53→18:25)
[2017-04-08] MEDS: Pantoprazole 40 mg EC Tab PO SCH ×2 (05:54→17:25)
[2017-04-08] MEDS: Levothyroxine 100 MCG TAB PO SCH (07:56)
--- NOTE | 2017-04-08 11:34 | CP.PCM.PN ---
Subjective - Date & Time of Evaluation Date of Evaluation: 04/08/17 Time of Evaluation: 09:25 - Subjective Subjective: Feeling better, much improved nausea, no vomiting or fever overnight, no diarrhea. Objective - Vital Signs/Intake and Output Vital Signs (last 24 hours): Temp Pulse Resp BP Pulse Ox 98.5 F 80 18 128/79 97 04/07/17 22:00 04/07/17 22:00 04/07/17 22:00 04/07/17 22:00 04/07/17 22:00 Intake and Output: 04/07/17 04/08/17 18:59 06:59 Intake Total 1730 Balance 1730 - Medications Medications: Current Medications Acetaminophen (Tylenol 325mg Tab) 650 mg PO Q6H PRN PRN Reason: Fever >100.4 F Last Admin: 04/05/17 23:58 Dose: 650 mg Trimethoprim/Sulfamethoxazole (617 mg/ Dextrose) 500 mls @ 250 mls/hr IVPB 0600 ,1800 [facility] Last Admin: 04/08/17 05:53 Dose: 250 mls/hr Ketorolac Tromethamine (Toradol) 15 mg IVP Q6 PRN PRN Reason: Pain, moderate (4-7) Last Admin: 04/06/17 13:55 Dose: 15 mg Levothyroxine Sodium (Synthroid) 300 mcg PO ACB [facility] Last Admin: 04/07/17 07:36 Dose: 300 mcg Ondansetron HCl (Zofran Inj) 4 mg IVP Q4H PRN PRN Reason: Nausea/Vomiting Last Admin: 04/08/17 05:35 Dose: 4 mg Pantoprazole Sodium (Protonix Ec Tab) 40 mg PO 0600,1800 [facility] Last Admin: 04/08/17 05:54 Dose: 40 mg Sucralfate (Carafate Oral Susp) 1 gm PO 0630,1130,1630,2200 [facility] Last Admin: 04/08/17 05:39 Dose: Not Given - Labs Labs: 04/07/17 05:30 04/07/17 05:30 - Constitutional Appears: Non-toxic, No Acute Distress - Head Exam Head Exam: NORMAL INSPECTION - ENT Exam ENT Exam: Mucous Membranes Moist - Neck Exam Neck Exam: absent: Meningismus - Respiratory Exam Respiratory Exam: Decreased Breath Sounds. absent: Rales - Cardiovascular Exam Cardiovascular Exam: +S1, +S2 - GI/Abdominal Exam GI & Abdominal Exam: Soft. absent: Tenderness Assessment and Plan - Assessment and Plan (Free Text) Plan: Assessment sepsis due to upper urinary tract infection, with ESBL-producing E. coli in this patient with anaphylactic reaction to amoxicillin and Latex, clinically improving nephrolithiasis S/P stenting on the right and lithotripsy history of pyelonephritis obesity with BMI 30 Plan We are unable to give Amikacin (preparation has materials similar to latex) and hesitant to use Merrem (amoxicillin allergy) - continue Bactrim (day 9) - recommend 10-14 days of the antibiotics - patient can be switched to PO Bactrim when ready for discharge follow up further Urology evaluation and recommendations will continue to monitor clinically while the patient is in the hospital
[2017-04-09] MEDS: SULFAMETHOXAZOLE IVPB SCH (07:01)
[2017-04-09] MEDS: TRIMETHOPRIM IVPB SCH (07:01)
[2017-04-09] MEDS: WATER IVPB SCH (07:01)
[2017-04-09] MEDS: DEXTROSE 5% IVPB SCH (07:01)
[2017-04-09] MEDS ORDERED: DiphenhydrAMINE 50 mg/ml Inj IVP STA (08:12)
--- NOTE | 2017-04-09 09:23 | CP.PCM.PN ---
Subjective - Date & Time of Evaluation Date of Evaluation: 04/09/17 Time of Evaluation: 09:14 - Subjective Subjective: Patient has very poor veins,needs iv access. Objective - Vital Signs/Intake and Output Vital Signs (last 24 hours): Temp Pulse Resp BP Pulse Ox 98.8 F 84 20 124/67 96 04/09/17 07:56 04/09/17 07:56 04/09/17 07:56 04/09/17 07:56 04/09/17 07:56 Intake and Output: 04/09/17 04/09/17 06:59 18:59 Intake Total 540 Balance 540 - Medications Medications: Current Medications Acetaminophen (Tylenol 325mg Tab) 650 mg PO Q6H PRN PRN Reason: Fever >100.4 F Last Admin: 04/05/17 23:58 Dose: 650 mg Trimethoprim/Sulfamethoxazole (617 mg/ Dextrose) 500 mls @ 250 mls/hr IVPB 0600 ,1800 [facility] Last Admin: 04/09/17 07:01 Dose: 250 mls/hr Ketorolac Tromethamine (Toradol) 15 mg IVP Q6 PRN PRN Reason: Pain, moderate (4-7) Last Admin: 04/06/17 13:55 Dose: 15 mg Levothyroxine Sodium (Synthroid) 300 mcg PO ACB [facility] Last Admin: 04/08/17 07:56 Dose: 300 mcg Ondansetron HCl (Zofran Inj) 4 mg IVP Q4H PRN PRN Reason: Nausea/Vomiting Last Admin: 04/08/17 18:25 Dose: 4 mg Pantoprazole Sodium (Protonix Ec Tab) 40 mg PO 0600,1800 [facility] Last Admin: 04/08/17 17:25 Dose: 40 mg Sucralfate (Carafate Oral Susp) 1 gm PO 0630,1130,1630,2200 [facility] Last Admin: 04/08/17 22:22 Dose: Not Given - Labs Labs: 04/07/17 05:30 04/07/17 05:30 - Constitutional Appears: No Acute Distress Assessment and Plan - Assessment and Plan (Free Text) Assessment: Poor venous access. Plan: Hep lock inserted in the R antecubital region. # 22 angiocath used.
[2017-04-09] MEDS ORDERED: Midazolam 2 MG/2 ML VIAL ONE ×2 (11:07→11:22)
[2017-04-09] MEDS: Sucralfate 1 gm/10 ml Oral Susp UD PO SCH (11:11)
[2017-04-09] MEDS ORDERED: DiphenhydrAMINE 50 mg/ml Inj ONE (11:13)
[2017-04-09] MEDS ORDERED: HYDROmorphone 0.5 mg/0.5 ml ISec IVP PRN (11:15)
[2017-04-09] MEDS ORDERED: Sodium Chloride 0.9% 1,000 ML IV SCH (11:15)
[2017-04-09] MEDS ORDERED: Gentamicin 80 mg/2mL Inj. ONE (11:23)
[2017-04-09] MEDS: Levothyroxine 100 MCG TAB PO SCH (13:28)
[2017-04-09 16:27] VITALS: BP 104/59; PULSE 71; RESP 20; TEMP 99; O2SAT 97
--- NOTE | 2017-04-10 02:54 | PN ---
DATE: 04/09/2017 SUBJECTIVE: Patient in bed, seen early this morning. She tolerated the medication well. PHYSICAL EXAMINATION VITAL SIGNS: Temperature 98, blood pressure 104/50, respiratory rate of 18. HEENT: Examination of HEENT is unremarkable. NECK: Supple. LUNGS: Have decreased breath sounds. HEART: Normal S1 and S2. ABDOMEN: Soft, nontender. LABORATORY DATA: Reveals a white count of 7.9, hemoglobin of 10, platelets of 296. Chemistries revealed a BUN of 6, creatinine of 0.8. Urinalysis is noted. Microbiology is reviewed. ASSESSMENT AND PLAN: A 26-year-old female who is seen earlier this morning, doing well, was admitted with sepsis and urinary tract infection, ESBL producing E. Coli, anaphylactic reaction to amoxicillin and latex, improving nephrolithiasis and status post stenting, unable to give amikacin preparation as material is similar to latex and hesitant to use meropenem due to amoxicillin allergy and patient is going to complete 10 days of Bactrim later today. I was called and told that the patient had a dermatologic reaction. Recommended discontinue Bactrim since she has almost completed 10 days. No further antibiotics. We will follow closely as an outpatient. Mayco Pate MD
== END 2017-04-09 18:47 | disposition home or self-care (01) | DRG 872 ==
LOC: ED 14:26 → ERH 16:27 → 3RNO 18:25
PROVIDERS: ADMIT Urology; ATTEND Urology
PROC: 0TP98DZ Removal of Intraluminal Device from Ureter, Via Natural or Artificial Opening Endoscopic (ICD-10-PCS; principal; 2017-04-09 10:45)
DX: A41.9 Sepsis, unspecified organism (principal); I10 Essential (primary) hypertension; N39.0 Urinary tract infection, site not specified; B96.20 Unspecified Escherichia coli [E. coli] as the cause of diseases classified elsewhere; E89.0 Postprocedural hypothyroidism; J45.909 Unspecified asthma, uncomplicated; K44.9 Diaphragmatic hernia without obstruction or gangrene; K59.00 Constipation, unspecified; T37.0X5A Adverse effect of sulfonamides, initial encounter; L27.0 Generalized skin eruption due to drugs and medicaments taken internally; K21.9 Gastro-esophageal reflux disease without esophagitis; Z85.850 Personal history of malignant neoplasm of thyroid; E66.9 Obesity, unspecified; Z68.30 Body mass index [BMI] 30.0-30.9, adult; Z87.442 Personal history of urinary calculi; Z87.891 Personal history of nicotine dependence; Z88.1 Allergy status to other antibiotic agents; Z91.040 Latex allergy status

== ENCOUNTER 2018-10-03 12:20 | Emergency (ER) | payer OTHER ==
[2018-10-03 12:21] VITALS: BMI 30.1
[2018-10-03 12:42] VITALS: BP 143/82; PULSE 99; RESP 18; TEMP 98.3; O2SAT 99
[2018-10-03 13:32] LABS: PH,URINE 6.5 (4.7-8.0); URINE BILIRUBIN NEGATIVE (NEGATIVE); URINE BLOOD SMALL (NEGATIVE); URINE GLUCOSE (UA) NEGATIVE (NEGATIVE); URINE LEUKOCYTE ESTERASE NEGATIVE Leu/uL (NEGATIVE); URINE PROTEIN TRACE mg/dL (<30 mg/dL); URINE UROBILINOGEN 0.2 E.U./dL (<1 E.U./dL)
[2018-10-03 13:34] LABS: URINE APPEARANCE CLEAR (CLEAR); URINE COLOR YELLOW (YELLOW)
[2018-10-03 13:51] LABS: URINE RBC 0 - 2 /hpf (0-2); URINE WBC 0 - 2 /hpf (0-6)
[2018-10-03 13:52] LABS: URINE BACTERIA SMALL /hpf
--- NOTE | 2018-10-03 15:42 | CT ---
Date of service: 10/03/2018 PROCEDURE: CT Abdomen and Pelvis without intravenous contrast HISTORY: hematuria/back pain COMPARISON: 04/01/2017 TECHNIQUE: Without contrast.. Contrast dose: Radiation dose: Total exam DLP = 510.43 mGy-cm. This CT exam was performed using one or more of the following dose reduction techniques: Automated exposure control, adjustment of the mA and/or kV according to patient size, and/or use of iterative reconstruction technique. FINDINGS: LOWER THORAX: Unremarkable. LIVER: Unremarkable. No gross lesion or ductal dilatation. GALLBLADDER AND BILE DUCTS: Unremarkable. PANCREAS: Unremarkable. No gross lesion or ductal dilatation. SPLEEN: Unremarkable. ADRENALS: Unremarkable. No mass. KIDNEYS AND URETERS: Unremarkable. No hydronephrosis. No solid mass. VASCULATURE: Unremarkable. No aortic aneurysm. No aortic atherosclerotic calcification or mural plaque present. BOWEL: Unremarkable. No obstruction. No gross mural thickening. APPENDIX: Unremarkable. Normal appendix. PERITONEUM: Unremarkable. No free fluid. No free air. LYMPH NODES: Unremarkable. No enlarged lymph nodes. BLADDER: Unremarkable. REPRODUCTIVE: Unremarkable. BONES: No acute fracture. OTHER FINDINGS: None. IMPRESSION: No acute intra-abdominal findings
--- NOTE | 2018-10-03 15:57 | ED PDOC ---
Arrival/HPI - General Chief Complaint: Female Genitourinary Time Seen by Provider: 10/03/18 12:22 Historian: Patient - History of Present Illness Narrative History of Present Illness (Text): 10/03/18 15:54 28yo female with pmhx of hypothyroid who present with complaint of urinary frequency, hematuria, dysuria and lower back pain x 2days. she notes history of recurrent UTI and renal colic. Denies fever, chills, nausea, vomiting, abdominal pain, any other complaint. Past Medical History - Provider Review Nursing Documentation Reviewed: Yes - Infectious Disease Hx of Infectious Diseases: None - Reproductive Menopause: No Currently : No - Cardiac Hx Cardiac Disorders: Yes Hx Hypertension: Yes - Pulmonary Hx Respiratory Disorders: Yes Hx Asthma: Yes - Neurological Hx Neurological Disorder: No - HEENT Hx HEENT Disorder: No - Renal Hx Renal Disorder: No Other/Comment: Pylonephritis - Endocrine/Metabolic Hx Endocrine Disorders: Yes Hx Hypothyroidism: Yes Other/Comment: Papillary thyroid CA - Hematological/Oncological Hx Blood Transfusions: No Hx Blood Transfusion Reaction: No - Integumentary Hx Dermatological Disorder: No - Musculoskeletal/Rheumatological Hx Falls: No - Gastrointestinal Hx Gastrointestinal Disorders: No - Genitourinary/Gynecological Hx Genitourinary Disorders: No - Psychiatric Hx Psychophysiologic Disorder: Yes Hx Anxiety: Yes Hx Depression: Yes Hx Substance Use: No - Surgical History Hx Section: Yes Other/Comment: THyroidectomy , Thyroid ca - Anesthesia Hx Anesthesia Reactions: No Family/Social History - Physician Review Nursing Documentation Reviewed: Yes Family/Social History: Unknown Family HX Smoking Status: Never Smoked Hx Alcohol Use: Yes (social) Hx Substance Use: No Allergies/Home Meds Allergies/Adverse Reactions: Allergies aztreonam [From Azactam] Allergy (Intermediate, Verified 10/03/18 12:43) hives amoxicillin Allergy (Verified 10/03/18 12:43) ANAPHYLAXIS latex Allergy (Verified 10/03/18 12:43) ANAPHYLAXIS spider venom Allergy (Verified 10/03/18 12:43) ANAPHYLAXIS sulfamethoxazole [From Bactrim] Allergy (Verified 10/03/18 12:43) RASH trimethoprim [From Bactrim] Allergy (Verified 10/03/18 12:43) RASH BEE STING Allergy (Uncoded 03/31/17 14:28) ANAPHYLAXIS Home Medications: Home Meds Medication Instructions Recorded Confirmed RX: Levothyroxine Sodium 300 mcg PO DAILY 03/15/17 03/31/17 [Synthroid] Review of Systems - Physician Review All systems were reviewed & negative as marked: Yes - Review of Systems Constitutional: Normal Eyes: Normal ENT: Normal Respiratory: Normal Cardiovascular: Normal Gastrointestinal: Normal Genitourinary Female: Dysuria, Frequency, Hematuria Musculoskeletal: Back Pain Skin: Normal Neurological: Normal Endocrine: Normal Hemo/Lymphatic: Normal Psychiatric: Normal Physical Exam Vital Signs Reviewed: Yes Vital Signs Temp Pulse Resp BP Pulse Ox 10/03/18 12:38 98.3 F 99 H 18 143/82 99 Temperature: Afebrile Blood Pressure: Normal Pulse: Regular Respiratory Rate: Normal Appearance: Positive for: Well-Appearing, Non-Toxic, Comfortable Pain Distress: None Mental Status: Positive for: Alert and Oriented X 3 - Systems Exam Head: Present: Atraumatic, Normocephalic Pupils: Present: PERRL Extroacular Muscles: Present: EOMI Conjunctiva: Present: Normal Mouth: Present: Moist Mucous Membranes Neck: Present: Normal Range of Motion Respiratory/Chest: Present: Clear to Auscultation, Good Air Exchange. No: Respiratory Distress, Accessory Muscle Use Cardiovascular: Present: Regular Rate and Rhythm, Normal S1, S2. No: Murmurs Abdomen: Present: Normal Bowel Sounds. No: Tenderness, Distention, Peritoneal Signs, Rebound, Guarding, McBurney's Point Tender, Rovsing's Sign Present Back: Present: Paraspinal Tenderness (Left sided paralumbar tenderness). No: CVA Tenderness, Midline Tenderness Upper Extremity: Present: Normal Inspection. No: Cyanosis, Edema Lower Extremity: Present: Normal Inspection. No: Edema Neurological: Present: GCS=15, CN II-XII Intact, Speech Normal Skin: Present: Warm, Dry, Normal Color. No: Rashes Psychiatric: Present: Alert, Oriented x 3, Normal Insight, Normal Concentration Medical Decision Making ED Course and Treatment: 10/03/18 16:14 28yo female presnt with dysuria, urinary frequency, lower back pain, hematuria x 2days. she was afebrile and in no distress in ED. UA - Small blood. No leuk or nitrite noted Secondary to her h/o renal colic abdominal/pelvic CT was ordered abdominal/Pelvic CT IMPRESSION: No acute intra-abdominal findings PT was treated with Macrobid secondary to her symptoms and hematuria for UTI Case was DW Dr. Chavis, pt's Urologist. He agreed with the plan. He will see pt in the office tomorrow. - Lab Interpretations Lab Results: Urine Color Yellow (YELLOW) 10/03/18 13:15 Urine Appearance Clear (CLEAR) 10/03/18 13:15 Urine pH 6.5 (4.7-8.0) 10/03/18 13:15 Ur Specific [place] 1.025 (1.005-1.035) 10/03/18 13:15 Urine Protein Trace mg/dL (<30 mg/dL) H 10/03/18 13:15 Urine Glucose (UA) Negative mg/dL (NEGATIVE) 10/03/18 13:15 Urine Ketones Negative mg/dL (NEGATIVE) 10/03/18 13:15 Urine Blood Small (NEGATIVE) H 10/03/18 13:15 Urine Nitrate Negative (NEGATIVE) 10/03/18 13:15 Urine Bilirubin Negative (NEGATIVE) 10/03/18 13:15 Urine Urobilinogen 0.2 E.U./dL (<1 E.U./dL) 10/03/18 13:15 Ur Leukocyte Esterase Negative [place]/uL (NEGATIVE) 10/03/18 13:15 Urine RBC 0 - 2 /hpf (0-2) 10/03/18 13:15 Urine WBC 0 - 2 /hpf (0-6) 10/03/18 13:15 Ur Epithelial Cells 1 - 3 /hpf (0-5) 10/03/18 13:15 Urine Bacteria Small /hpf (NONE) 10/03/18 13:15 - RAD Interpretation Radiology Orders: 10/03/18 13:58 ABD & PELVIS W/O PO OR IV CONT [CT] Stat Disposition/Present on Arrival - Present on Arrival Any Indicators Present on Arrival: No History of DVT/PE: No History of Uncontrolled Diabetes: No Urinary Catheter: No History of Decub. Ulcer: No History Surgical Site Infection Following: None - Disposition Have Diagnosis and Disposition been Completed?: Yes Diagnosis: UTI (urinary tract infection) Disposition: HOME/ ROUTINE Disposition Time: 16:00 Patient Plan: Discharge Patient Problems: Current Active Problems Problem Status Onset UTI (urinary tract infection) Acute Condition: STABLE Discharge Instructions (ExitCare): Urinary Tract Infections in Adults Additional Instructions: Follow up with your Urologist, Dr. chavis Drink plenty of fluid Return to ED for any new or worsening symptoms Prescriptions: RX: Ibuprofen [Motrin Tab] 600 mg PO Q6 #15 tab Nitrofurantoin Macrocrystals [Macrobid] 100 mg PO BID #14 cap Referrals: Darrion Chavis MD [Staff Provider] - Follow up with primary Forms: [id number] (Green[place]ic)
== END 2018-10-03 16:11 | disposition home or self-care (01) ==
LOC: ED 12:20
DX: N39.0 Urinary tract infection, site not specified (principal); I10 Essential (primary) hypertension; E03.9 Hypothyroidism, unspecified